=== PATIENT | male | born 1945 | race Caucasian/White ===

== ENCOUNTER → 2017-06-25 08:01 | Outpatient (CLI) | payer MEDICARE, BC, SELFPAY ==
[2017-06-25 10:56] LABS: Anion Gap 7 (5-15); BUN 9 mg/dL (7-18); BUN/Creat Ratio 9.2 RATIO (10-20); Calcium,Total 8.7 mg/dL (8.5-10.1); Chloride 109 mmol/L (98-107); Cholesterol 140 mg/dL (200); Creatinine, Serum 0.98 mg/dL (0.70-1.30); EST Glomerular Filtration Rate 80 mL/min (>60); Est Glom Filt Rate - Afr Amer 97 mL/min (>60); Glucose 83 mg/dL (74-106); High Density Lipoprotein 48 mg/dL; PSA,Total - Annual Screen 3.21 ng/mL (0.00-4.00); Potassium 4.1 mmol/L (3.5-5.1); Sodium Level 142 mmol/L (136-145); Triglycerides 79 mg/dL; Very Low Density Lipoprotein 16 mg/dL (5-40)
== END ==
PROVIDERS: Family Provider Family Medicine; PCP Family Medicine; Visit Provider Family Medicine
DX: Z00.00 Encounter for general adult medical examination without abnormal findings (principal); I10 Essential (primary) hypertension; E78.5 Hyperlipidemia, unspecified; Z12.5 Encounter for screening for malignant neoplasm of prostate
CPT/HCPCS: 36415; 80048; 80061; 84153; G0103

== ENCOUNTER → 2019-04-17 09:41 | Outpatient (CLI) | payer MEDICARE, BC, SELFPAY ==
[2019-04-17 12:54] LABS: Anion Gap 3 (5-15); BUN 16 mg/dL (7-18); BUN/Creat Ratio 14.2 RATIO (10-20); Calcium,Total 9.2 mg/dL (8.5-10.1); Chloride 109 mmol/L (98-107); Cholesterol 169 mg/dL (200); Creatinine, Serum 1.13 mg/dL (0.70-1.30); EST Glomerular Filtration Rate 67 mL/min (>60); Est Glom Filt Rate - Afr Amer 81 mL/min (>60); Glucose 97 mg/dL (74-106); High Density Lipoprotein 58 mg/dL; PSA,Total - Annual Screen 4.18 ng/mL (0.00-4.00); Potassium 4.5 mmol/L (3.5-5.1); Sodium Level 141 mmol/L (136-145); Triglycerides 118 mg/dL; Very Low Density Lipoprotein 24 mg/dL (5-40)
[2019-04-17 14:54] LABS: ALB/GLOB Ratio 1.1 RATIO (0.9-2.4); AST(SGOT) 17 U/L (15-37); Alanine Aminotransfer ALT/SGPT 28 U/L (16-61); Albumin, Serum 3.8 g/dL (3.2-5.0); Alkaline Phosphatase 58 U/L (45-117); Globulin 3.5 g/dL (2.2-4.2); Protein, Total 7.3 g/dL (6.4-8.2)
== END ==
PROVIDERS: PCP Family Medicine; Referring Provider Family Medicine; Visit Provider Family Medicine
DX: N40.0 Benign prostatic hyperplasia without lower urinary tract symptoms (principal); E78.5 Hyperlipidemia, unspecified; I10 Essential (primary) hypertension; Z12.5 Encounter for screening for malignant neoplasm of prostate
CPT/HCPCS: 36415; 80048; 80053; 80061; 84153; G0103

== ENCOUNTER → 2019-04-24 15:50 | Outpatient (CLI) | payer MEDICARE, BC, SELFPAY ==
--- NOTE | 2019-04-24 15:58 | RAD_ITS ---
STUDY: X-RAY - LEFT FOOT CLINICAL: Medial left foot pain extending into the heel for 2 months, may have overstretched foot. TECHNIQUE: 3 view(s) of the foot. COMPARISON: Radiographs of the left ankle 09/04/2016. FINDINGS: There is a small plantar calcaneal enthesophyte as on the prior study. Otherwise, unremarkable talus, calcaneus, and tarsal bones. Normal visualized subtalar, talonavicular, calcaneocuboid, tarsal and tarsometatarsal articulations. Normal metatarsi. Normal metatarsophalangeal joint of the great toe. Normal tibial and fibular sesamoid bones. There is a bipartite tibial sesamoid. Normal interphalangeal joint of the great toe. There is a small cyst in the medial distal aspect of the first proximal phalanx. Otherwise, unremarkable phalanges of the great toe. Normal second through fifth metatarsophalangeal joints. Normal interphalangeal joints and phalanges of the lesser toes. The soft tissue structures are unremarkable. RAD/Foot min 3 Views IMPRESSION: Small plantar calcaneal enthesophyte. Small cyst in the first proximal phalanx. Electronically Signed: Luis A Cho MD at 9:33 EST Tel , Service support ,
== END ==
PROVIDERS: PCP Family Medicine; Referring Provider Family Medicine; Visit Provider Family Medicine
DX: M79.672 Pain in left foot (principal)
CPT/HCPCS: 73630

== ENCOUNTER → 2019-05-30 12:05 | Outpatient (CLI) | payer MEDICARE, BC, SELFPAY ==
--- NOTE | 2019-05-30 12:08 | RAD_ITS ---
STUDY: X-RAY - UNILATERAL RIBS ( RIGHT ) WITH CHEST REASON FOR EXAM: Male, 74 years old. Fell 3 days ago, right lower anterior rib pain now TECHNIQUE - RIBS: 4 view(s) of the ribs. TECHNIQUE - CHEST: Single PA view of the chest. COMPARISON: None. FINDINGS - RIBS: Nondisplaced transverse fracture in the posterior aspect of the right seventh rib. FINDINGS - CHEST: The lungs are clear and expanded. Scattered calcified granulomas. There is no demonstrated pleural abnormality. Normal size heart. Normal mediastinum and parth. There is prominence of the pulmonary hilar arteries without peripheral pulmonary vascular congestion, suggesting pulmonary hypertension. There is atherosclerotic calcification of the aortic arch with tortuosity. There are diffuse degenerative changes of the visualized thoracic spine. Normal visualized ribs, clavicles, and shoulders. There is no demonstrated abnormality of the visualized soft tissue structures of the upper abdomen. RAD/Ribs Uni Min 3V w/PA Chest IMPRESSION: RIBS: Nondisplaced fracture in the posterior aspect of the right seventh rib. CHEST: Normal x-ray examination of the chest. Electronically Signed: Valeriy Rene, at 14:00 EDT , Service support ,
== END ==
PROVIDERS: PCP Family Medicine; Referring Provider Family Medicine; Visit Provider Family Medicine
DX: R07.81 Pleurodynia (principal)
CPT/HCPCS: 71101

== ENCOUNTER → 2019-08-02 10:44 | Outpatient (CLI) | payer MEDICARE, BC, SELFPAY ==
--- NOTE | 2019-08-02 10:46 | ECHOD_ITS ---
Reason For Study: Murmur Procedure This was a 2D Doppler, Color Flow transthoracic echocardiogram. Exam performed in department. Left Ventricle Normal LV size. Severe concentric left ventricular hypertrophy. Left ventricular systolic function is normal. The estimated ejection fraction is 65 %. No regional wall motion abnormalities noted. Right Ventricle Normal RV size. Normal systolic function. Atria The left atrium is moderately enlarged. The right atrium is moderately enlarged. Mitral Valve There is mild mitral annular calcification. Mild (1+) eccentric mitral valve insufficiency. Tricuspid Valve Normal tricuspid valve. Mild to moderate (1-2+) tricuspid valve insufficiency. Pulmonary artery systolic pressure is 52 mmHg. Moderate pulmonary hypertension. Aortic Valve Trisinus/trileaflet aortic valve. Severe focal aortic valve calcification. Peak aortic valve gradient 86 mmHg. Mean aortic valve gradient 52 mmHg. Severe aortic stenosis. Calculated aortic valve area (continuity equation) is 0.5 cm2. Trivial eccentric aortic valve insufficiency. Pulmonic Valve Normal pulmonic valve. Great Vessels Normal aortic root. The pulmonary artery is normal size. Normal inferior vena cava. Pericardium/Pleural No pericardial effusion. MMode/2D Measurements & Calculations LVIDd: 4.4 cm IVSd: 1.8 cm LVOT diam: 2.0 cm LVIDs: 3.0 cm LVPWd: 1.7 cm LVOT area: 3.0 cm2 RVDd: 4.2 cm FS: 30.9 % Ao root diam: 3.3 cm LAV(MOD-bp): 104.0 ml LA A4 area: 26.8 cm2 LA dimension: 4.4 cm LAV(MOD-bp) Indexed: 47.3 ml/m2 LAV(MOD-sp2): 106.2 ml LAV(MOD-sp4): 96.6 ml RA A4 area: 25.3 cm2 Time Measurements MV dec time: 0.37 sec Doppler Measurements & Calculations MV E max vaughn: 105.8 cm/sec Lat Peak E' Vaughn: 5.9 cm/sec Med Peak E' Vaughn: 5.6 cm/sec MV A max vaughn: 99.9 cm/sec E/E' lat: 17.8 E/E' med: 19.1 MV E/A: 1.1 MV V2 max: 147.7 cm/sec MV P1/2t max vaughn: 148.7 cm/sec Ao V2 max: 465.1 cm/sec MV max P.7 mmHg MV P1/2t: 84.4 msec Ao max P.5 mmHg MV V2 mean: 73.9 cm/sec MV dec slope: 516.1 cm/sec2 Ao V2 mean: 340.1 cm/sec MV mean P.6 mmHg Ao mean P.9 mmHg MV V2 VTI: 44.4 cm MVA(P1/2t): 2.6 cm2 Ao V2 VTI: 120.6 cm MVA(VTI): 1.3 cm2 KARINE(I,D): 0.48 cm2 KARINE(V,D): 0.51 cm2 LV V1 max: 78.5 cm/sec SV(LVOT): 58.0 ml PA V2 max: 93.1 cm/sec LV V1 max P.5 mmHg LV V1 mean P.5 mmHg LV V1 mean: 57.0 cm/sec LV V1 VTI: 19.2 cm TR max vaughn: 349.4 cm/sec TR max P.8 mmHg Interpretation Summary Normal LV size. Severe concentric left ventricular hypertrophy. Left ventricular systolic function is normal. The estimated ejection fraction is 65 %. Mean aortic valve gradient 52 mmHg. Severe aortic stenosis. Calculated aortic valve area (continuity equation) is 0.5 cm2. Moderate pulmonary hypertension. Ordering Physician: Roberto Carlos Aj Referring Physician: Roberto Carlos Aj Performed By: Warren Singh RCS
== END ==
PROVIDERS: PCP Family Medicine; Referring Provider Family Medicine; Visit Provider Family Medicine
DX: R01.1 Cardiac murmur, unspecified (principal); R06.02 Shortness of breath
CPT/HCPCS: 93306

== ENCOUNTER → 2019-08-04 06:05 | Outpatient (CLI) | payer MEDICARE, BC, SELFPAY ==
--- NOTE | 2019-08-04 16:42 | STRESSREP ---
Stress Test Report Exercise myocardial perfusion stress test. 74-year-old man with a history of chest pain. Stress protocol: Resting EKG demonstrates sinus bradycardia with a rate of 56 bpm occasional premature ventricular complexes noted. Resting blood pressure is 132/88 mmHg. The patient exercised according to regular Vu protocol for a total duration of 7 minutes. The patient completed 1 minute into stage III of the Vu protocol. The maximum heart rate attained was 123 bpm which was 84% of maximum predicted heart rate the maximum workload was 8.5 metabolic equivalents. Patient maintained sinus rhythm with frequent premature ventricular complexes noted. Episodes of bigeminy was noted as well as ventricular couplets activity. There was one episode of triplet noted. The above was noted to be asymptomatic. Patient did experience some shortness of breath. At rest no EKG changes were noted suggest ischemia peak exercise 1.[address] depression was noted in lead II and V6 and 1.[address] depression noted in lead III and aVF. The resting blood pressure is 132/88 with a peak blood pressure 162/96. Myocardial perfusion protocol. 11.0 mCi of technetium 99m sestamibi was injected at rest. The patient exercised according to regular Vu protocol. At peak exercise 36.0 mCi of technetium 99m sestamibi was injected stress images were obtained stress and rest images were reconstructed and compared in the short axis vertical and horizontal long axis. Gated images were also obtained Perfusion SPECT analysis: Review of the stress images demonstrate a small defect noted in the apex and inferoapical wall. The anterior wall lateral wall and septal wall appears to be well perfused. The resting images demonstrate improvement in the apical region suggestive of apical and inferoapical ischemia. No previous infarct is noted. Gated SPECT analysis: The gated ejection fraction is noted to be 46%. Conclusion: Abnormal exercise myocardial perfusion stress test with evidence of apical ischemia noted. Frequent premature ventricular complexes noted as well as ventricular bigeminy. Mild reduction in low ventricular systolic function.
== END ==
PROVIDERS: PCP Family Medicine; Referring Provider Family Medicine; Visit Provider Family Medicine
DX: R06.02 Shortness of breath (principal)
CPT/HCPCS: 78452; 93017; A9500

== ENCOUNTER 2019-08-28 07:41 | Day surgery (SDC) | payer MEDICARE, BC, SELFPAY ==
--- NOTE | 2019-08-22 03:06 | HP_ITS ---
HPI HPI History of Present Illness Surgical H&P: Yes Details: Mr. 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 Patient was found to have a incidental heart murmur by Dr. Herron who then ordered a series of tests including an echocardiogram and a stress test. Patient underwent a 2D echo with Doppler on 08/02/2019 which showed the following results: Normal LV size. Severe concentric left ventricular hypertrophy. Left ventricular systolic function is normal. The estimated ejection fraction is 65 %. Peak gradient of 86 mmHg. Mean aortic valve gradient 52 mmHg. Severe aortic stenosis. Calculated aortic valve area (continuity equation) is 0.5 cm2. Moderate pulmonary hypertension. In addition to this he underwent a walking nuclear stress test on 08/04/2019 at which time he walked about 7 minutes, had abnormal EKG changes with exercise, and demonstrated apical ischemia with frequent PVCs. He is here for further evaluation for his aortic stenosis and dyspnea on exertion. On further history, patient states that he is never been told he had a murmur in the past, but has had progressively worsening dyspnea on exertion over the last year. He occasionally gets lightheaded with getting up too quickly, but has had no presyncope or syncopal episodes. He denies any exertional anginal symptoms. In our office today's blood pressure is 160/90, and pulse is 60 and regular. Physical exam demonstrates clear lungs bilaterally, parvus et tardus bilateral carotids with radiation of his aortic murmur to both carotids, regular rate and rhythm with a 3/6 systolic ejection murmur best heard at the upper right sternal border, no diastolic murmurs noted. He has no edema. EKG dated 08/04/2019 shows sinus bradycardia at a rate of 56, left atrial large man, PVC, good R wave progression across the precordium. His lipids dated 04/17/2019 show an LDL of 87 and HDL of 58. 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 Required: No Is patient in pain?: No Allergies No Known Allergies Allergy (Verified 08/15/19 17:36) Medications atorvastatin 10 mg tablet 10 mg PO QHS 08/15/19 [History Confirmed 08/15/19] metoprolol succinate 100 mg tablet,extended release 24 hr 100 mg PO DAILY 08/15/19 [History Confirmed 08/15/19] aspirin 81 mg tablet,delayed release 81 mg PO DAILY #30 tab 08/22/19 [Rx Confirmed 08/22/19] furosemide 20 mg tablet 20 mg PO DAILY #30 tab 08/22/19 [Rx Confirmed 08/22/19] omeprazole 20 mg capsule,delayed release 20 mg PO BID cap 08/22/19 [History Confirmed 08/22/19] PFSH Medical History Abnormal nuclear stress test (Acute) Severe aortic stenosis (Chronic) Nonrheumatic tricuspid (valve) insufficiency (Chronic) Nonrheumatic mitral (valve) insufficiency (Chronic) Secondary pulmonary hypertension (Chronic) Severe left ventricular hypertrophy (Chronic) Dyspnea on exertion (Acute) Essential hypertension (Chronic) Hyperlipidemia (Chronic) Greene's esophagus with esophagitis (Chronic) GERD (gastroesophageal reflux disease) (Chronic) Hiatal hernia (Chronic) BPH (benign prostatic hyperplasia) (Chronic) Family History Other CAD (coronary artery disease) Diabetes Hypertension Social History (Updated 08/22/19 @ 15:[address] David Wyatt MD) Smoking Status: Former smoker ROS Const Const: Negative for fatigue, weakness, body ache, fever(s), headache(s), chills, frequent falls, night sweats, daytime sleepiness, difficulty sleeping, excessive sweating, weight gain, weight loss, increased appetite, poor appetite, anorexia or other Eyes Eyes: Negative for blind spots, loss of peripheral vision, transient loss of vision, blurry vision, change in vision, double vision, floaters, tunnel vision or other ENT ENT: Negative for headache(s), dizziness, hearing loss, tinnitus, Nosebleed/epistaxis, balance problems, post nasal drip, lip swelling, tongue swelling, bleeding gums, hoarseness, neck pain, dry mouth or other Cardio Chest Pain: No Resp Respiratory: Negative for SOB with activity, SOB at rest, SOB orthopnea\SOB lying down, Coughing up blood/hemoptysis, chest congestion, pain on inspiration, snoring, stridor, wheezing, crackles, paroxysmal nocturnal dyspnea or other GI GI: Negative nausea, vomiting, heartburn, constipation, belching, bloating, cramping, vomiting blood/hematemesis, bright, red blood in stools, black,tarry stools, loose stools, Difficulty Swallowing or other : Negative for hematuria, frequent nighttime urination/ nocturia, erectile dysfunction or abnormal vaginal bleeding Musc Musc: Negative for muscle aches/ myalgia, muscle weakness, joint pain or balance problems Skin Skin: Negative redness, non-healing lesions, rash, unusual bruising, skin ulcer, wounds, jaundice or other Neuro Neuro: Negative for dizziness, lightheadedness, near syncope, syncope, orthostatic symptoms, frequent falls, headache(s), weakness, confusion, memory loss, restless legs, blurry vision, double vision, vertigo, seizures, lack of coordination or other Bryce Hematologic/Lymphatic: Negative for easy bleeding, easy bruising, enlarged lymph nodes or other Endo Endo: Negative for fatigue, cold intolerance, heat intolerance, excessive sweating, flushing, increased thirst/drinking, increased hunger, hair loss, hair growth or other Psych Psych: Negative for anxiety, depression, thoughts of harming anyone, thoughts of harming yourself, visual hallucinations, panic attacks or audible hallucinations Allergy Allergy/Immunology: Negative for throat swelling, Negative for tongue swelling, Negative for hives, Negative for rash, Negative for lip swelling Cardiology Exam Const Appearance: cooperative, healthy appearing and no acute distress Nutritional Appearance: well nourished Orientation: alert, oriented x3 and oriented to person Head Head: normal to inspection, normocephalic and atraumatic Nose: external nose normal Face and Sinus: face symmetric Mouth: oral mucosae normal Eyes General: appearance normal, both eyes and all related structures Eyelids: eyelids normal Conjunctivae: conjunctivae normal Pupils: PERRL and normal by confrontation EOM: EOM intact bilaterally Neck Neck: normal visual inspection and full ROM Carotids: normal carotid upstroke Chest Chest inspection: normal inspection of the chest Auscultation: Bilateral: Clear to Auscultation Cardio Palpation: normal PMI Rate: regular rate Rhythm: regular rhythm Heart sounds: S1 normal and S2 normal GI GI: normal to inspection, no hepatosplenomegaly and bowel sounds present Neuro General: alert, awake, oriented x3, CN's II-XI intact bilaterally and moves all extremities Skin Skin: no rashes or lesions noted Extremities Pulses: Normal: Right Femoral Pulse, Left Femoral Pulse, Right Dorsalis Pedis Pulse, Left Dorsalis Pedis Pulse, Right Posterior Tibial Pulse, Left Posterior Tibial Pulse, Right Radial Pulse, Left Radial Pulse Lower Extremity Edema: None: Bilateral Psych Psychological: normal affect Assessment & Plan 1. Severe aortic stenosis I35.0 Per echo 08/02/2019: Peak gradient 86 mmhg, mean gradient 52 mmhg, calculated valve area 0.5 cm2. Severe aortic valve calcification. Plan 1. Severe aortic stenosis: Patient was found to have a systolic murmur and a cardiac work-up demonstrated severe aortic stenosis with a peak/mean gradient of 86/52 mmHg given an estimated aortic valve area of 0.5 cm?. In addition he underwent a walking stress test stopped due to significant dyspnea, had abnormal EKG changes, no evidence of apical ischemia. I recommended the patient undergo a left and right heart catheterization to evaluate his pulmonary pressures, aortic valve gradient, and coronary arteries. Depending upon its findings will determine whether the patient requires open aortic valve replacement with bypass surgery or TAVR. Should the patient require TAVR, I recommend he go to the [facility]. The meantime he will continue his metoprolol succinate on a milligrams daily, we will add Lasix 20 g p.o. daily for his hypertension and diastolic hypertension and to unload his lungs. Continue baby aspirin. Should the patient require surgery he will require carotid ultrasound and pulmonary function test. The risk/benefits of the cardiac catheterization procedure were thoroughly explained the patient including specific attention to lack of onsite surgical backup, the patient agrees to proceed. Orders Orders: Left & Right Heart Cath 08/28/19 Basic Metabolic Profile (BMP) Today Partial Thromboplast Time Today Prothrombin Time w/INR Today CBC-Complete Blood Cnt No Diff Today Chest PA and Lateral Today 2. Secondary pulmonary hypertension RVSP 52 mmhg per echo 08/02/2019 with , mitral and tricuspid insufficiency. Plan 2. Pulmonary hyperpretension: At this point the patient most likely has secondary pulmonary pretension as a result of his severe aortic stenosis. Again we will start Lasix 20 mg p.o. daily. He will continue his baby aspirin and metoprolol. He will require pulmonary function tests prior to his surgery if indicated. 3. Hyperlipidemia E78.5 Plan 3. Hyperlipidemia: We are awaiting a repeat lipid profile. Continue Lipitor. 4. Return office in 6 months. This note was generated using a voice recognition system and there may be incorrect words, spelling or punctuation that were not noted when reviewing the office note prior to saving. Plan Detail Other Orders Orders: Left & Right Heart Cath 08/28/19 I10, I34.0, I36.1, I51.7, R06.00, R94.39 Basic Metabolic Profile (BMP) Today R06.00, R94.39 Partial Thromboplast Time Today R06.00, R06.02, R94.39 Prothrombin Time w/INR Today R06.00, R94.39 CBC-Complete Blood Cnt No Diff Today R06.00, R94.39 Chest PA and Lateral Today R06.00, R94.39 Other Medications New: aspirin (Adult Aspirin Regimen) 81 mg PO DAILY 30 tabs 11RF furosemide 20 mg PO DAILY 30 tabs 11RF aspirin (Adult Aspirin Regimen) 81 mg PO DAILY 30 tabs 11RF Follow Up +6M (Edmundo) Coding Level of Care Code Off vis,new,level 4 Diagnoses Severe aortic stenosis I35.0 Secondary pulmonary hypertension Hyperlipidemia E78.5 Coding Level of Care Code Off vis,new,level 4 Diagnoses Severe aortic stenosis I35.0 Secondary pulmonary hypertension Hyperlipidemia E78.5 Supplemental Info Supplemental Information Labs LDL Cholesterol 87 mg/dL (0-130) 04/17/19 HDL Cholesterol 58 mg/dL (40-) 04/17/19 Triglycerides 118 mg/dL (-199) 04/17/19 VLDL Cholesterol 24 mg/dL (5-40) 04/17/19 Diagnostics Echocardiogram 08/02/19 Stress Test 08/04/19 08/22/19 [id number] <Electronically signed by David Wyatt MD> Date _ David Wyatt MD
[2019-08-22 14:34] VITALS: BMI 29.1
--- NOTE | 2019-08-22 15:25 | RAD_ITS ---
HISTORY: patient having heart cath in near future ADDITIONAL HISTORY: None provided. COMPARISON: 05/30/2019 TECHNIQUE: Frontal and lateral chest radiographs. Number of images including paperwork: 2 FINDINGS: LUNGS AND PLEURA: No consolidation, mass or pleural effusion. CARDIAC SILHOUETTE: Stable. MEDIASTINUM AND JODI: Stable. UPPER ABDOMEN: Unremarkable. SKELETON AND SOFT TISSUES: No acute findings. Degenerative changes. Old right rib fractures. OTHER DEVICES AND HARDWARE: None. RAD/Chest PA and Lateral IMPRESSION: No acute cardiopulmonary abnormality. at 0642 Reported and signed by: Karina Álvarez MD Electronically Signed: Karina Álvarez MD at 6:42 EDT Tel , Service support ,
[2019-08-22 16:18] LABS: Hematocrit 43.5 % (40-54); Hemoglobin 13.9 g/dL (13.0-16.5); Mean Corpuscular Hgb 29.9 pg (27.0-32.0); Mean Corpuscular Volume 93.5 fL (80-94); Mean Platelet Vol. 10.9 fl (6.2-12.0); Platelet Count 172 K/mm3 (150-450); RBC Distribution Width CV 12.9 % (11.6-14.6); RBC Distribution Width SD 44.2 fl (35.1-43.9); Red Blood Count 4.65 M/mm3 (4.6-6.2); White Blood Count 7.2 K/mm3 (4.4-11.0)
[2019-08-22 16:41] LABS: Anion Gap 7 (5-15); BUN 19 mg/dL (7-18); Calcium,Total 8.8 mg/dL (8.5-10.1); Chloride 105 mmol/L (98-107); Creatinine, Serum 0.86 mg/dL (0.70-1.30); EST Glomerular Filtration Rate 92 mL/min (>60); Est Glom Filt Rate - Afr Amer 111 mL/min (>60); Glucose 97 mg/dL (74-106); Potassium 4.2 mmol/L (3.5-5.1); Sodium Level 139 mmol/L (136-145)
[2019-08-22 16:50] LABS: International Normalized Ratio 1.1; Prothrombin Time (Protime)PT. 13.3 SECONDS (11.7-14.9)
[2019-08-22 16:51] LABS: Partial Thromboplast Time 26.9 Seconds (24.1-36.2)
[2019-08-25 11:50] VITALS: BMI 29.1
--- NOTE | 2019-08-28 10:32 | PCM.HP.BLA ---
Problem List (1) Abnormal nuclear stress test Status: Acute Comment: 08/04/2019 (2) Dyspnea on exertion Status: Acute (3) Secondary pulmonary hypertension Status: Chronic Comment: RVSP 52 mmhg per echo 08/02/2019 with , mitral and tricuspid insufficiency. (4) Severe aortic stenosis Status: Chronic Comment: Per echo 08/02/2019: Peak gradient 86 mmhg, mean gradient 52 mmhg, calculated valve area 0.5 cm2. Severe aortic valve calcification. (5) Severe left ventricular hypertrophy Status: Chronic Comment: Per echo 08/02/2019 History and Physical Date of Admission: 08/28/19 [facility] Medical Records Department [address] [place] [address] History and Physical 08/22/19 0306 MR#: [id number] Acct: [id number] Name: Nicolas SHABAZZ III Rep #: [id number] : 1945 74 From: David Wyatt MD PCP: Dr. Roberto Carlos Herron MD Status: PRE [facility] Location: [facility] HPI HPI History of Present Illness Surgical H&P: Yes Details: Mr. 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 Patient was found to have a incidental heart murmur by Dr. Herron who then ordered a series of tests including an echocardiogram and a stress test. Patient underwent a 2D echo with Doppler on 08/02/2019 which showed the following results: Normal LV size. Severe concentric left ventricular hypertrophy. Left ventricular systolic function is normal. The estimated ejection fraction is 65 %. Peak gradient of 86 mmHg. Mean aortic valve gradient 52 mmHg. Severe aortic stenosis. Calculated aortic valve area (continuity equation) is 0.5 cm2. Moderate pulmonary hypertension. In addition to this he underwent a walking nuclear stress test on 08/04/2019 at which time he walked about 7 minutes, had abnormal EKG changes with exercise, and demonstrated apical ischemia with frequent PVCs. He is here for further evaluation for his aortic stenosis and dyspnea on exertion. On further history, patient states that he is never been told he had a murmur in the past, but has had progressively worsening dyspnea on exertion over the last year. He occasionally gets lightheaded with getting up too quickly, but has had no presyncope or syncopal episodes. He denies any exertional anginal symptoms. In our office today's blood pressure is 160/90, and pulse is 60 and regular. Physical exam demonstrates clear lungs bilaterally, parvus et tardus bilateral carotids with radiation of his aortic murmur to both carotids, regular rate and rhythm with a 3/6 systolic ejection murmur best heard at the upper right sternal border, no diastolic murmurs noted. He has no edema. EKG dated 08/04/2019 shows sinus bradycardia at a rate of 56, left atrial large man, PVC, good R wave progression across the precordium. His lipids dated 04/17/2019 show an LDL of 87 and HDL of 58. Intake Vital Signs 08/22/19 Height 6 ft 08/22/19 Weight: 215 lb 08/22/19 BMI 29.1 08/22/19 BP 160/90 H 08/22/19 Blood Pressure Location Lt brachial 08/22/19 Position Sitting 08/22/19 Respiration 20 H 08/22/19 Pulse 60 08/22/19 Pulse Source Auscultation Intake Visit Reasons: AORTIC STENOSIS (HERRON) [employer] Required: No Is patient in pain?: No Allergies No Known Allergies Allergy (Verified 08/15/19 17:36) Medications atorvastatin 10 mg tablet 10 mg PO QHS 08/15/19 [History Confirmed 08/15/19] metoprolol succinate 100 mg tablet,extended release 24 hr 100 mg PO DAILY 08/15/19 [History Confirmed 08/15/19] aspirin 81 mg tablet,delayed release 81 mg PO DAILY #30 tab 08/22/19 [Rx Confirmed 08/22/19] furosemide 20 mg tablet 20 mg PO DAILY #30 tab 08/22/19 [Rx Confirmed 08/22/19] omeprazole 20 mg capsule,delayed release 20 mg PO BID cap 08/22/19 [History Confirmed 08/22/19] [facility] Medical History Abnormal nuclear stress test (Acute) Severe aortic stenosis (Chronic) Nonrheumatic tricuspid (valve) insufficiency (Chronic) Nonrheumatic mitral (valve) insufficiency (Chronic) Secondary pulmonary hypertension (Chronic) Severe left ventricular hypertrophy (Chronic) Dyspnea on exertion (Acute) Essential hypertension (Chronic) Hyperlipidemia (Chronic) Greene's esophagus with esophagitis (Chronic) GERD (gastroesophageal reflux disease) (Chronic) Hiatal hernia (Chronic) BPH (benign prostatic hyperplasia) (Chronic) Family History Other CAD (coronary artery disease) Diabetes Hypertension Social History (Updated 08/22/19 @ 15:[address] David Wyatt MD) Smoking Status: Former smoker ROS Const Const: Negative for fatigue, weakness, body ache, fever(s), headache(s), chills, frequent falls, night sweats, daytime sleepiness, difficulty sleeping, excessive sweating, weight gain, weight loss, increased appetite, poor appetite, anorexia or other Eyes Eyes: Negative for blind spots, loss of peripheral vision, transient loss of vision, blurry vision, change in vision, double vision, floaters, tunnel vision or other ENT ENT: Negative for headache(s), dizziness, hearing loss, tinnitus, Nosebleed/epistaxis, balance problems, post nasal drip, lip swelling, tongue swelling, bleeding gums, hoarseness, neck pain, dry mouth or other Cardio Chest Pain: No Resp Respiratory: Negative for SOB with activity, SOB at rest, SOB orthopnea\SOB lying down, Coughing up blood/hemoptysis, chest congestion, pain on inspiration, snoring, stridor, wheezing, crackles, paroxysmal nocturnal dyspnea or other GI GI: Negative nausea, vomiting, heartburn, constipation, belching, bloating, cramping, vomiting blood/hematemesis, bright, red blood in stools, black,tarry stools, loose stools, Difficulty Swallowing or other : Negative for hematuria, frequent nighttime urination/ nocturia, erectile dysfunction or abnormal vaginal bleeding Musc Musc: Negative for muscle aches/ myalgia, muscle weakness, joint pain or balance problems Skin Skin: Negative redness, non-healing lesions, rash, unusual bruising, skin ulcer, wounds, jaundice or other Neuro Neuro: Negative for dizziness, lightheadedness, near syncope, syncope, orthostatic symptoms, frequent falls, headache(s), weakness, confusion, memory loss, restless legs, blurry vision, double vision, vertigo, seizures, lack of coordination or other Bryce Hematologic/Lymphatic: Negative for easy bleeding, easy bruising, enlarged lymph nodes or other Endo Endo: Negative for fatigue, cold intolerance, heat intolerance, excessive sweating, flushing, increased thirst/drinking, increased hunger, hair loss, hair growth or other Psych Psych: Negative for anxiety, depression, thoughts of harming anyone, thoughts of harming yourself, visual hallucinations, panic attacks or audible hallucinations Allergy Allergy/Immunology: Negative for throat swelling, Negative for tongue swelling, Negative for hives, Negative for rash, Negative for lip swelling Cardiology Exam Const Appearance: cooperative, healthy appearing and no acute distress Nutritional Appearance: well nourished Orientation: alert, oriented x3 and oriented to person Head Head: normal to inspection, normocephalic and atraumatic Nose: external nose normal Face and Sinus: face symmetric Mouth: oral mucosae normal Eyes General: appearance normal, both eyes and all related structures Eyelids: eyelids normal Conjunctivae: conjunctivae normal Pupils: PERRL and normal by confrontation EOM: EOM intact bilaterally Neck Neck: normal visual inspection and full ROM Carotids: normal carotid upstroke Chest Chest inspection: normal inspection of the chest Auscultation: Bilateral: Clear to Auscultation Cardio Palpation: normal PMI Rate: regular rate Rhythm: regular rhythm Heart sounds: S1 normal and S2 normal GI GI: normal to inspection, no hepatosplenomegaly and bowel sounds present Neuro General: alert, awake, oriented x3, CN's II-XI intact bilaterally and moves all extremities Skin Skin: no rashes or lesions noted Extremities Pulses: Normal: Right Femoral Pulse, Left Femoral Pulse, Right Dorsalis Pedis Pulse, Left Dorsalis Pedis Pulse, Right Posterior Tibial Pulse, Left Posterior Tibial Pulse, Right Radial Pulse, Left Radial Pulse Lower Extremity Edema: None: Bilateral Psych Psychological: normal affect Assessment & Plan 1. Severe aortic stenosis I35.0 Per echo 08/02/2019: Peak gradient 86 mmhg, mean gradient 52 mmhg, calculated valve area 0.5 cm2. Severe aortic valve calcification. Plan 1. Severe aortic stenosis: Patient was found to have a systolic murmur and a cardiac work-up demonstrated severe aortic stenosis with a peak/mean gradient of 86/52 mmHg given an estimated aortic valve area of 0.5 cm?. In addition he underwent a walking stress test stopped due to significant dyspnea, had abnormal EKG changes, no evidence of apical ischemia. I recommended the patient undergo a left and right heart catheterization to evaluate his pulmonary pressures, aortic valve gradient, and coronary arteries. Depending upon its findings will determine whether the patient requires open aortic valve replacement with bypass surgery or TAVR. Should the patient require TAVR, I recommend he go to the [facility]. The meantime he will continue his metoprolol succinate on a milligrams daily, we will add Lasix 20 g p.o. daily for his hypertension and diastolic hypertension and to unload his lungs. Continue baby aspirin. Should the patient require surgery he will require carotid ultrasound and pulmonary function test. The risk/benefits of the cardiac catheterization procedure were thoroughly explained the patient including specific attention to lack of onsite surgical backup, the patient agrees to proceed. Orders Orders: Left & Right Heart Cath 08/28/19 Basic Metabolic Profile (BMP) Today Partial Thromboplast Time Today Prothrombin Time w/INR Today CBC-Complete Blood Cnt No Diff Today Chest PA and Lateral Today 2. Secondary pulmonary hypertension RVSP 52 mmhg per echo 08/02/2019 with , mitral and tricuspid insufficiency. Plan 2. Pulmonary hyperpretension: At this point the patient most likely has secondary pulmonary pretension as a result of his severe aortic stenosis. Again we will start Lasix 20 mg p.o. daily. He will continue his baby aspirin and metoprolol. He will require pulmonary function tests prior to his surgery if indicated. 3. Hyperlipidemia E78.5 Plan 3. Hyperlipidemia: We are awaiting a repeat lipid profile. Continue Lipitor. 4. Return office in 6 months. This note was generated using a voice recognition system and there may be incorrect words, spelling or punctuation that were not noted when reviewing the office note prior to saving. Plan Detail Other Orders Orders: Left & Right Heart Cath 08/28/19 I10, I34.0, I36.1, I51.7, R06.00, R94.39 Basic Metabolic Profile (BMP) Today R06.00, R94.39 Partial Thromboplast Time Today R06.00, R06.02, R94.39 Prothrombin Time w/INR Today R06.00, R94.39 CBC-Complete Blood Cnt No Diff Today R06.00, R94.39 Chest PA and Lateral Today R06.00, R94.39 Other Medications New: aspirin (Adult Aspirin Regimen) 81 mg PO DAILY 30 tabs 11RF furosemide 20 mg PO DAILY 30 tabs 11RF aspirin (Adult Aspirin Regimen) 81 mg PO DAILY 30 tabs 11RF Follow Up +6M (Edmundo) Coding Level of Care Code Off vis,new,level 4 Diagnoses Severe aortic stenosis I35.0 Secondary pulmonary hypertension Hyperlipidemia E78.5 Coding Level of Care Code Off vis,new,level 4 Diagnoses Severe aortic stenosis I35.0 Secondary pulmonary hypertension Hyperlipidemia E78.5 Supplemental Info Supplemental Information Labs LDL Cholesterol 87 mg/dL (0-130) 04/17/19 HDL Cholesterol 58 mg/dL (40-) 04/17/19 Triglycerides 118 mg/dL (-199) 04/17/19 VLDL Cholesterol 24 mg/dL (5-40) 04/17/19 Diagnostics Echocardiogram 08/02/19 Stress Test 08/04/19 08/22/19 1506 <Electronically signed by David Wyatt MD> Date David Wyatt MD 08/23/19 1333 <Electronically signed by David Wyatt MD> Date: Time: David Wyatt MD CC: Dr. David Wyatt MD; Dr. Roberto Carlos Herron MD ~ Date Dictated: 08/22/19 0306 Date Transcribed: 08/23/19 1126 Repair Department Manager: NR Signed Patient seen and examined on day of procedure, the risk/benefits of the procedure were thoroughly explained the patient including specific attention to lack of onsite surgical backup, and the patient is agreed to proceed. COVID-19 questions addressed and answered. Left heart cath and right heart catheterization to follow. Procedure Criteria COVID Risk Discussion: COVID risk assessment completed.
--- NOTE | 2019-08-28 11:10 | CL.D_ITS ---
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 Aortic Root Angiographically Normal Aortic Valve Stenosis- Severe RECOMMENDATIONS Refer to [facility] per pt's request for AVR +/- CABG to LCX and LAD. Manual sheath removal. DESCRIPTION OF PROCEDURE The patient arrived to the procedure lab. The risks and benefits of the procedure as well as a full d escription of our services here and current unavailability of surgical backup were fully explained to the patient and/or their significant other prior to the catheterization. The Timeout was completed, verifying the correct patient and procedure. The patient's procedural site was prepped and draped in the usual fashion. Local anesthetic was given subcutaneously to right groin region with Lidocaine 2%. Using a modified Seldinger technique, arterial access was obtained via the right femoral artery, a 4 Fr sheath was inserted Venous access was obtained via the right femoral vein, a 7Fr sheath was insert ed. A 7Fr thermal dilution catheter was inserted and right heart pressures were recorded, it was then advanced to PA position for cardiac outputs. Thermal dilution cardiac outputs were then recorded. O2 saturations were then obtained. The Thermal dilution catheter was then removed. Left Coronary Artery selective angiography was performed in multiple views using a 4 Fr. JL5 catheter. Rig ht Coronary Artery selective angiography was then performed in multiple views using a 4 Fr. 3DRC cath eter.The arterial sheath was pulled and manual compression applied until hemostasis is achieved. CORONARY ANGIOGRAPHY DOMINANCE: Right Dominant LEFT HEART ASSESSMENT Left Ventricular Ejection Fraction: Not assessed LV wall motion not assessed RIGHT HEART ASSESSMENT Thermal CO: 6.51 Thermal CI: 2.96 Krish CO: 5.53 Krish CI: 2.51 PW: 8 PA: 28/8 13 RV: 35/-1 6 RA: 4/2 0 PVR: 72 Right Heart pressures - normal LEFT MAIN: Angiographically normal LEFT ANTERIOR DESCENDING ARTERY: PROX LAD: Mild calcification MID LAD: Mild luminal irregularities less than 30% CIRCUMFLEX ARTERY: PROX CIRC: 75 % Stenosis RAMUS: Mild luminal irregularities less than 30% RIGHT CORONARY ARTERY: Angiographically normal VALVE FINDINGS: Aortic Valve Calcification - severe Aortic Valve Stenosis - severe AORTIC ROOT: Angiographically normal COMPLICATIONS No Complications PROCEDURE MEDICATIONS SUMMARY OF HEMODYNAMIC DATA Time AIR REST ECG 08:02:44 RA 4/2 (0) 10:41:09 RV 35/-1, 6 10:41:24 PW (8) PV 10:42:09 PA 28/8 (13) PA 10:42:24 AO 163/80 (111) SA 10:52:18 Type SV CO (l/m) CI (l/m/ HR Time AIR REST Thermal 112.20 6.51 2.96 58 08:02:44 Krish 95.30 5.53 2.51 58 08:02:44 Label % O2 Pres/Loc Time AIR REST AO 96 PV 10:59:16 PA 68 PA 10:59:22 Signed By David Wyatt MD On 08/28/2019 11:09:34 David Wyatt MD
[2019-08-28 14:25] LABS: VBG BASE EXCESS -1 mmol/L (-1.0-3.5); VBG Bicarbonate 24 mmol/L (22-26); VBG Oxygen Content 25 mmol/L (23-33); VBG PO2 36 mmHg (25-40); VBG SO2 68 % (50-70); VBG pCO2 39.5 mmHg (41-51); VBG pH 7.39 (7.32-7.42)
[2019-08-28 14:25] LABS: VBG BASE EXCESS -1 mmol/L (-1.0-3.5); VBG Bicarbonate 24 mmol/L (22-26); VBG Oxygen Content 25 mmol/L (23-33); VBG PO2 41 mmHg (25-40); VBG SO2 75 % (50-70); VBG pCO2 39.2 mmHg (41-51)
[2019-08-28 14:25] LABS: Base Excess -1 mmol/L (-2 to +2); Bicarbonate 23.5 mmol/L (22-26); PO2 82 mmHG (75-100); SO2 96 % (95-99); Total Carbon Dioxide 25 mmol/L; pH 7.41 (7.35-7.45)
== END 2019-08-28 15:35 | disposition home or self-care (01) ==
LOC: CLSP 07:42
PROVIDERS: PCP Family Medicine; Referring Provider Internal Medicine Cardiovascular Disease; Visit Provider Internal Medicine Cardiovascular Disease
DX: I35.0 Nonrheumatic aortic (valve) stenosis (principal); K21.9 Gastro-esophageal reflux disease without esophagitis; K22.70 Barrett's esophagus without dysplasia; I10 Essential (primary) hypertension; E78.5 Hyperlipidemia, unspecified; Z87.891 Personal history of nicotine dependence; Z79.899 Other long term (current) drug therapy; Z79.82 Long term (current) use of aspirin; R06.09 Other forms of dyspnea; N40.0 Benign prostatic hyperplasia without lower urinary tract symptoms; K44.9 Diaphragmatic hernia without obstruction or gangrene; I27.29 Other secondary pulmonary hypertension; R94.31 Abnormal electrocardiogram [ECG] [EKG]; R94.39 Abnormal result of other cardiovascular function study
CPT/HCPCS: 36415; 71046; 80048; 85027; 85610; 85730; 93456; 93567; J7040; Q9967; C1751; C1769; C1894

== ENCOUNTER → 2019-10-09 08:18 | Outpatient (CLI) | payer MEDICARE, BC, SELFPAY ==
[2019-08-25 11:50] VITALS: BMI 29.1
[2019-10-09 12:50] LABS: Prothrombin Time (Protime)PT. 21.8 SECONDS (11.7-14.9)
[2019-10-09 12:52] LABS: Absolute Lymphocyte Count 0.94 X10^3/uL (0.83-4.51); Absolute Neutrophil Count 5.5 X10^3/uL (2.0-7.7); Basophil# 0.05 X10^3/uL; Basophil% 0.7 % (0-1); Eosinophil# 0.29 X10^3/uL; Eosinophils% 3.9 % (0-5); Hematocrit 32.9 % (40-54); Hemoglobin 10.4 g/dL (13.0-16.5); Lymphocyte # 0.94 X10^3/ul (4.0); Lymphocyte % 12.5 % (19-41); Mean Corp Hgb Conc 31.6 g/dL (32-36); Mean Corpuscular Hgb 29.5 pg (27.0-32.0); Mean Corpuscular Volume 93.5 fL (80-94); Mean Platelet Vol. 10.1 fl (6.2-12.0); Monocyte# 0.71 X10^3/uL; Monocyte% 9.5 % (0-10); NRBC Flagged by Analyzer 0 % (0-5); Neutrophil # 5.45 X10^3/uL (2.7-7.7); Neutrophil % 72.6 % (47-70); Platelet Count 416 K/mm3 (150-450); RBC Distribution Width SD 44.2 fl (35.1-43.9); Red Blood Count 3.52 M/mm3 (4.6-6.2); White Blood Count 7.5 K/mm3 (4.4-11.0)
[2019-10-09 12:54] LABS: Anion Gap 4 (5-15); BUN 16 mg/dL (7-18); BUN/Creat Ratio 18.1 RATIO (10-20); Calcium,Total 8.5 mg/dL (8.5-10.1); Chloride 108 mmol/L (98-107); Creatinine, Serum 0.88 mg/dL (0.70-1.30); EST Glomerular Filtration Rate 89 mL/min (>60); Est Glom Filt Rate - Afr Amer 108 mL/min (>60); Glucose 97 mg/dL (74-106); Magnesium 2.4 mg/dL (1.6-2.6); Potassium 3.8 mmol/L (3.5-5.1); Sodium Level 138 mmol/L (136-145)
== END ==
PROVIDERS: Family Medicine; PCP Family Medicine; Visit Provider Family Medicine
DX: E87.8 Other disorders of electrolyte and fluid balance, not elsewhere classified (principal); Z51.81 Encounter for therapeutic drug level monitoring
CPT/HCPCS: 36415; 80048; 83735; 85025; 85610

== ENCOUNTER → 2019-11-16 10:37 | Outpatient (CLI) | payer MEDICARE, BC, SELFPAY ==
[2019-11-16 09:28] VITALS: BMI 27.5
--- NOTE | 2019-11-16 10:39 | RAD_ITS ---
STUDY: X-RAY CHEST REASON FOR EXAM: Male, 74 years old. open heart surgery September 27, follow up -- some chest pain/discomfort TECHNIQUE: Frontal and lateral views COMPARISON: 08/22/2019 FINDINGS: Sternotomy wires and noted over the mediastinum since the previous study. The lungs are clear and expanded. There is no demonstrated pleural abnormality. Normal size heart. A prosthetic valve is noted. Normal mediastinum and parth. Normal visualized pulmonary arteries. Normal visualized aortic arch and descending thoracic aorta. Degenerative changes of the thoracic spine. Old right rib fractures. There is no demonstrated abnormality of the visualized soft tissue structures of the upper abdomen. RAD/Chest PA and Lateral IMPRESSION: No acute pulmonary pathology of the chest. Electronically Signed: Clement Cook DO at 23:43 EDT Tel [phone], Service support ,
[2019-11-16 11:23] LABS: Absolute Lymphocyte Count 1.29 X10^3/uL (0.83-4.51); Absolute Neutrophil Count 5.4 X10^3/uL (2.0-7.7); Basophil# 0.05 X10^3/uL; Basophil% 0.7 % (0-1); Eosinophils% 2.6 % (0-5); Hematocrit 37.3 % (40-54); Hemoglobin 11.5 g/dL (13.0-16.5); Lymphocyte # 1.29 X10^3/ul (4.0); Lymphocyte % 16.8 % (19-41); Mean Corp Hgb Conc 30.8 g/dL (32-36); Mean Corpuscular Hgb 26.8 pg (27.0-32.0); Mean Corpuscular Volume 86.9 fL (80-94); Mean Platelet Vol. 10.6 fl (6.2-12.0); Monocyte# 0.69 X10^3/uL; NRBC Flagged by Analyzer 0 % (0-5); Neutrophil # 5.42 X10^3/uL (2.7-7.7); Neutrophil % 70.6 % (47-70); Platelet Count 278 K/mm3 (150-450); RBC Distribution Width CV 13.2 % (11.6-14.6); RBC Distribution Width SD 42.3 fl (35.1-43.9); Red Blood Count 4.29 M/mm3 (4.6-6.2); White Blood Count 7.7 K/mm3 (4.4-11.0)
[2019-11-16 11:57] LABS: AST(SGOT) 20 U/L (15-37); Alanine Aminotransfer ALT/SGPT 37 U/L (16-61); Albumin, Serum 3.6 g/dL (3.2-5.0); Alkaline Phosphatase 82 U/L (45-117); Anion Gap 6 (5-15); BUN 11 mg/dL (7-18); BUN/Creat Ratio 11.8 RATIO (10-20); Bilirubin, Direct 0.12 mg/dL (0.00-0.30); Chloride 105 mmol/L (98-107); Cholesterol 177 mg/dL (200); Creatinine, Serum 0.94 mg/dL (0.70-1.30); EST Glomerular Filtration Rate 83 mL/min (>60); Est Glom Filt Rate - Afr Amer 101 mL/min (>60); Globulin 3.9 g/dL (2.2-4.2); Glucose 95 mg/dL (74-106); High Density Lipoprotein 59 mg/dL; Potassium 4.2 mmol/L (3.5-5.1); Protein, Total 7.5 g/dL (6.4-8.2); Sodium Level 139 mmol/L (136-145); Triglycerides 105 mg/dL; Very Low Density Lipoprotein 21 mg/dL (5-40)
== END ==
PROVIDERS: PCP Family Medicine; Referring Provider Internal Medicine Cardiovascular Disease; Visit Provider Internal Medicine Cardiovascular Disease
DX: E78.00 Pure hypercholesterolemia, unspecified (principal); E78.5 Hyperlipidemia, unspecified; I10 Essential (primary) hypertension; I25.10 Atherosclerotic heart disease of native coronary artery without angina pectoris; I35.0 Nonrheumatic aortic (valve) stenosis; Z95.1 Presence of aortocoronary bypass graft
CPT/HCPCS: 36415; 71046; 80048; 80061; 80076; 85025

== ENCOUNTER → 2019-12-04 12:50 | Outpatient (CLI) | payer MEDICARE, BC, SELFPAY ==
[2019-11-16 09:28] VITALS: BMI 27.5
--- NOTE | 2019-12-04 12:55 | CR.HP_ITS ---
CR - History & Physical - General Arrival date:: 12/04/19 Arrival time:: 12:58 Date of Referral:: 11/16/19 Date of CR Evaluation:: 12/04/19 Referring Physician: DR. ALLEY MEDRANO Primary Diagnosis: S/P CABG - History of Present Cardiac Event Onset Date: Enter Onset Date of cardiac illnesses in Comment field below Coronary Artery Bypass Graft:: Yes - 09/28/2019 [facility] Type of Symptoms:: CARDIAC MURMUR, SHORTNESS OF BREATH. Interventions with present event:: STRESS TEST, ECHOCARDIOGRAM, EKG AND THEN HEART CATH. - Medications Home Medications: Ambulatory Orders Medication Instructions Recorded atorvastatin 10 mg tablet 10 mg PO QHS 08/15/19 aspirin 81 mg tablet,delayed 81 mg PO DAILY #30 tab 08/22/19 release acetaminophen 650 mg 650 mg PO Q6H PRN tab 10/12/19 tablet,extended release magnesium oxide 400 mg (241.3 mg 400 mg PO DAILY 11/16/19 magnesium) tablet metoprolol succinate 100 mg 100 mg PO DAILY 11/16/19 tablet,extended release 24 hr multivitamin 1 tab PO DAILY 11/16/19 omeprazole 20 mg capsule,delayed 20 mg PO DAILY cap 11/16/19 release - Allergies Allergies/Adverse Reactions: Allergies No Known Allergies Allergy (Verified 11/16/19 09:32) - Sleep Disorder Evaluation Hx of Sleep Apnea: No Do you snore loudly (louder than talking or can be heard through closed doors)?: No Do you often feel tired/ fatigued/ sleepy during daytime?: No Has anyone observed you stop breathing during sleep?: No History of Hypertension (for STOP score): Yes STOP Results: Negative Advanced Directives - Advanced Directives Power of Engineering Program Manager: No Living Will: No Advance Directives Information Provided: Yes Advance Directives on File: No DNR Order?:: No - MOLST See MOLST form: No Past Medical History - Covid-19 Screening Fever: No Unexplained muscle aches: No Current respiratory symptoms: No Upper respiratory infections symptoms: No Gastro-intestinal symptoms: Yes - H/O GERD [id number] symptoms: No Has tested positive for COVID-19 in last 30 days: No Had contact w/person w/symptoms or Covid-19 (+) last 14 days: No Has High Risk Exposures ID'd by Health dept/Inf Control team: No 65 years or older:: Yes Lives in Assisted Living facility:: No Has a chronic lung disease or moderate to severe asthma:: No Has a serious heart condition:: Yes Immunocompromised:: No Severely obese (Body Mass Index of 40 or higher):: No Diabetic:: No Has chronic kidney disease undergoing dialysis:: No - Past Medical Illness Medical History: Past Medical History (Last Reviewed 11/16/19 @ 09:35 by Gege Adrian) Atherosclerotic heart disease of [place] coronary artery without angina pectoris (Chronic) I25.10 Nonrheumatic aortic (valve) stenosis (Resolved) I35.0 Per echo 08/02/2019: Peak gradient 86 mmhg, mean gradient 52 mmhg, calculated valve area 0.5 cm2. Severe aortic valve calcification. Shortness of breath (Acute) R06.02 Dyspnea on exertion (Acute) R06.00 Abnormal nuclear stress test (Acute) R94.39 08/04/2019 Nonrheumatic tricuspid (valve) insufficiency (Chronic) I36.1 mild to mod (1-2+) per echo 08/02/2019 Nonrheumatic mitral (valve) insufficiency (Chronic) I34.0 mild (1+) insufficiency with calcification per echo 08/02 2019 Secondary pulmonary hypertension (Chronic) RVSP 52 mmhg per echo 08/02/2019 with , mitral and tricuspid insufficiency. Severe left ventricular hypertrophy (Chronic) I51.7 Per echo 08/02/2019 Essential hypertension (Chronic) I10 Hyperlipidemia (Chronic) E78.5 GERD (gastroesophageal reflux disease) (Chronic) K21.9 BPH (benign prostatic hyperplasia) N40.0 Greene's esophagus with esophagitis K22.70, K20.9 Hiatal hernia K44.9 Severe aortic stenosis (Inactive) I35.0 Per echo 08/02/2019: Peak gradient 86 mmhg, mean gradient 52 mmhg, calculated valve area 0.5 cm2. Severe aortic valve calcification. - Past Surgical History Surgical History: Past Surgical History (Last Reviewed 11/16/19 @ 09:35 by Gege Adrian) S/P aortic valve replacement with bioprosthetic valve (Chronic) Onset Date: 10/03/19 Z95.3 SVG to OM1, Bioprosthetic AVR(Inspiris #25) per Dr. Griffin Messina @ [facility] 10/03/2019 S/P CABG x 1 (Chronic) Onset Date: 10/03/19 Z95.1 SVG to OM1, Bioprosthetic AVR(Inspiris #25) per Dr. Griffin Messina @ [facility] 10/03/2019 History of right and left heart catheterization Onset Date: 08/28/19 Z98.890 Single vessel CAD of the proximal LCX. Non obstructive coronary arteries. Cardiac output - Preserved The patient has normal pulmonary hemodynamics. Aortic Root Angiographically Normal. Aortic Valve Stenosis- Severe. RECOMMENDATIONS: [facility]er [facility] pt's request for AVR +/- CABG to LCX and LAD. 08/28/19 per ELIDA @ [facility] - Family History Summary Family History: Family History (Last Reviewed 11/16/19 @ 09:35 by Gege Adrian) Other CAD (coronary artery disease) Diabetes Hypertension Social History - Smoking History Smoking Status: Former smoker Years Smokin - QUIT AGE 29'S Hx Tobacco Use: Yes Hx Smoking Exposure: No - Alcohol Use Alcohol Usage: No - Substance Abuse Hx Substance Use: No - Occupation Occupation (List type of work in comments):: Retired - [employer] - Hobbies, Recreation, Social Activities Hobbies: Other - MOWING YARD, WORKING IN GARDEN, [employer]. Recreational Activities: I am able to engage in a few activities Social Environment - Status Marital Status: - Current Living Arrangements Living Environment:: Spouse - Children How many children do you have?: 1 Do any of your children live nearby?: No - Safety Do you feel safe in your surroundings?: Yes - Assistance Do you need any assistance at home?: NO Review of Systems - Review of Systems Hints: Right click = Denies ([place]ash). Left click = Reports ([place]) Review of Present Symptoms: Reports: Shortness of Breath at Rest, Shortness of Breath with Exertion, Operative Discomfort - NOTICABLE BUT NOT PAINFUL SCALE 1- 10 RATE S IT AT A 2., Wound Healing, Fatigue, Heart Arrhythmia/Irregularities - ALOT OF ATRIAL FIBRILLATION PSOT SURGERY BUT HAS DIMINISHED SIGNIFICANTLY., Appetite - Normal. Denies: Dizziness/Lightheadedness, Appetite - Special Diet - TRYING TO CUT OUT SALT, CUT DOWN ON SNACKING. - Pain Is Patient Pain Free?: No Risk Factor Assessment - Chief Complaint Chief Complaint: 74 YR OLAD MALE PATIENT OF DR. VALENCIA WHO PRESENTS TO CR TODAY FOLLOWING [facility] ON 09/28/2019 AT [facility]. - Vital Signs Temperature: 97.3 F Respiratory Rate: 14 Pulse Ox: 97 Blood Pressure: 152/94 - Pulse Pulse Rate: 60 Pulse Rhythm: Regular - Hypertension Blood Pressure Sitting - Left Arm: 152/94 - Blood Cholesterol/Lipids Total Cholesterol (mg/dL) Goal = less than 200 mg/dL: 150 HDL Cholesterol (mg/dL) Goal = less than 40 mg/dL: 59 LDL Cholesterol (mg/dL) Goal = less than 70 mg/dL: 97 Triglycerides (mg/dL) Goal = less than 150 mg/dL: 105 - Diabetes Nutrition Referral for Diabetes: No - Obesity Height: 6 ft Weight:: 203 lb Weight in Pounds: 203.0 lbs Weight Source: Standing Scale Body Mass Index (BMI): 27.5 Nutritional Referral for Obesity: No - Physical Inactivity Physical Inactivity: Recreational activity - Risk Stratification Risk Guidelines: Lowest Risk: Risk Factor for Smoking, Risk Factor for Dyslipidemia, Risk Factor for Diabetes, Risk Factor for Sedentary Lifestyle, Risk Factor for Depression, Moderate Risk: Risk Factor for Obesity, Risk Factor for Hypertension - STILL HAS RESTING BP 152/94, Highest Risk: Risk Factor for Hypertension - For Smoking Smoking Risk Guidelines: Smoking Low Risk: None or quit greater than 6 months ago. Smoking Moderate Risk: Smoker or quit 6 months or less ago. Smoking High Risk: Smoker - For Dyslipidemia Dyslipidemia Risk Guidelines: Low Risk: Moderate Risk: High Risk: 15-25% fat 25.1-29% fat >/= 30% fat. <7% sat fat 7-9% sat fat >9% sat fat. <150 mg chol 150-299 mg chol >/= 300 mg chol. LDL <100 LDL 100-129 LDL >/= 130. Chol/HDL ratio <5.0 Chol/HDL ratio 5.0-6.0 Chol/HDL ratio >6.0. Triglycerides <100 Triglycerides 100-149 Triglycerides >/= 150 - For Diabetes Mellitus Diabetes Risk Guidelines: Diabetes Low Risk: HgA1c <6.5% and/or FBG <120. Diabetes Moderate Risk: HgA1c 6.6-7.9% and/or FBG 120-180. Diabetes High Risk: HgA1c >/= 8% and/or FBG >180 - For Obesity/Overweight Obesity/Overweight Risk Guidelines: Obesity Low Risk: BMI <25.0. Obesity Moderate Risk: BMI 25-29.9. Obesity High Risk: BMI >/= 30.0 - For Hypertension Hypertension Risk Guidelines: Hypertension Low Risk: Systolic <120 and Diastolic <80. Hypertension Moderate Risk: Systolic 120-139 and Diastolic 80-89. Hypertension High Risk: Systolic >/= 140 and Diastolic >/= 90 - For Sedentary Lifestyle Sedentary Lifestyle Risk Guidelines: Sedentary Lifestyle Low Risk: >/= 1,500 kcal/week. Sedentary Lifestyle Moderate Risk: 700-1,499 kcal/week. Sedentary Lifestyle High Risk: < 700 kcal/week - For Depression Depression Risk Guidelines: Depression Low Risk: Not clinically depressed. Depression Moderate Risk: Mildly depressed. Depression High Risk: Clinically depressed - Family History Family History: Family History (Last Reviewed 11/16/19 @ 09:35 by Gege Adrian) Other CAD (coronary artery disease) Diabetes Hypertension Motivation - Motivation to Participate On a scale of 1 to 10, how prepared are you to commit to attending program?: 8 What do you see as barriers to successfully being able to complete the program?: DOESN'T DRIVE AD HAS OTHER APPOINTMENTS What do you see as the benefits of succesfully completing the program? In other words, what do you hope to get out of participating in the program?: GETTING BACK TO NORMAL ACTIVITY, REGULAR EXERCISE, RETURNING TO 95% OR NORM Are there issues you are dealing with that will interfere with completing the program?: NONE Do you have a spouse or signficant other, family or friends who will help support you to complete the program?: YES
--- NOTE | 2019-12-04 12:55 | CR.ITP_ITS ---
Diagnosis - General Information Admitting Diagnosis: S/P CABG Secondary Diagnosis: I25.10, I35.0, I10 Personal Learning Style:: Audio/Visual, Written Barriers to Learning: Vision Impairment Stage of change r/t lifestyle modifications:: Action Gave educational material for:: Treating Heart Disease, Emotions & Heart Disease, Stress Management & Relaxation, Sleep Disorders & Heart Disease, How Th e Heart Works, What it means to have Heart Disease, How Coronary Artery Disease is Diagnosed, Heart Procedures, What Heart Medications Do, Risk Factors & Modifications, Living an Active Life, Nutrition - Education/Goals Individual Counseling: Initial Assessment: Abnormal Cholesterol Levels, High Blood Pressure Cardiac Rehabilitation Goals: 1. Maintain the individual as the primary focus of care. 2. To improve the patient's quality of life. 3. Identification of cardiac risk factors and provide cardiac risk factor management. 4. Enhance the psychosocial status of the patient. 5. Reconditioning enough to allow the patient to resume customary activities. 6. Control symptoms of cardiac disease Personal Goals: Initial Assessment: Improve energy level, Participate in home exercise program, Improve muscle strength and endurance, Improve diet and eating habits (eat healthier), Control risk factors (learn risk factor modification) Scale for measuring improvement of personal goals: Enter appropriate number in Comments. 2 = Unchanged. 3 = Slightly Better. 4 = Moderate Improvement. 5 = Met my Goal - Diagnosis & Disease Process Outcomes/Goals: Pt IDs own risk factors & lifestyle modifications by Session 10, Verbalizes symptoms of angina & response by session 3., Pt independently manages Plan/Interventions: Assist Pt to ID & engage in lifestyle modification to reduce CVD risk, Instruct on individual risk factors, Review symptoms of angina & emergency actions, Review secondary diagnosis & identify educational needs. - Safety Referral to Physical Therapy: No Referral to [facility] Case Management: No Fall Risk Assessed:: Yes Assistive Devices:: None Exercise - Initial Assessment - Visit Date of Eval: 12/04/19 Session #:: 0 - PRE-CARDIAC REHAB Mets: Pre-: >7 METS for 30 minutes by discharge - Physician Prescribed Exercise Modalities: Treadmill, Airdyne, NuStep Frequency: 3x/week for 12 weeks [36 sessions] Intensity: 60-80% of age predicted maximum heart rate reserve Current METSs:: 3.0 Target Heart Rate:: 959-124 Resting Blood Pressure: 152/94 - UNCONTROLLED EKG Type: SINUS BRADYCARDIA - Outcomes & Goals Goals:: Verbalizes understanding of THR, RPE & goal METS by session 6, Documents in home exercise log/reports 30 min aerobic 5 day/wk by DC, Demonstrates accurate pulse taking by DC - Intervention & Plan Exercise Program Goals: Instruct on personal THR & RPE, Instruct on MET level & personal MET goal, Show patient to take own pulse /validate performance until accurate, Instruct on home exercise - Physical Activity Home Exercise Physical Activity - Home Exercise: Safe Exercise, Warm-up, Self-monitoring, Cool-Down, Home Exercise > 30 min Daily, Sitting Time <3 hours/daily - Outcomes & Goals Outcomes/Goals: Demonstrates correct Warm-up/exercise Cool-Down (S3) if = 2.5 METs, Verbalizes symptoms of exercise intolerance by Session 3 (S3), Demonstrate safe equipment use (S3) & follows exercise prescrition (6) - Intervention & Plan Plan/Intervention: Instruct warm-up & cool-down if exercising at > 2 METs, Instruct on symptoms of exercise intolerance & actions to take, Instruct & monitor on saf, Assess intial functional capacity & safety risk Nutrition - Initial Assessment - Program Goals Nutrition Program Goals: LDL <100 optimal. 100 - 129 Near optimal. 130 - 159 Borderline High. 160 - 189 High. Total Cholesterol <200 desirable. 200 - 239 Borderline High. >/= 240 High. HDL < 40 Low >/=60 High. Triglycerides <150 desirable. <199 optimal. VlDL 5 - 40. HgbA1C <7%. BMI <25 Patient has diagnosis of Hyperlipidemia (ICD E78)?: Yes - Visit Date of Assessment:: 12/04/19 Session #:: 0 - PRE-CARDIAC REHAB - Cholesterol/Lipids Triglycerides (mg/dL): 105 Total Cholesterol (mg/dL): 150 LDL Cholesterol (mg/dL): 97 HDL Cholesterol (mg/dL): 59 Determine presence & major risk factors that modify LDL goal: Hypertension or hypertensive medication, Family history of premature CHD in Male < 55 years: female <65 yearsFa, Age men > 45 years; women >/= 55 years Outcomes/Goals: Pt IDs own risk factors & lifestyle modifications by Session 10, Verbalizes symptoms of angina & response by session 3., Pt independently manages Intervention/Plan: Instruct on personal lipid levels & lipid goals/NCEP guidelines, Instruct on cholesterol Referral to dietitian:: Yes - Diabetes (Other Core Measures) Diabetes Type: Not Applicable - Weight Mgt (Other Care) Not Applicable: Yes Height: 6 ft Weight:: 203 lb BMI: 27.5 Diagnosis Overweight/Obesity BMI> 30% ICD-10 E66: No Diagnosis High BMI/Morbid Obesity BMI> 35% ICD-10 Z68: No Outcomes/Goals: Pt sets, maintains & shows weight loss goal & trend during rehab Intervention/Plan: Instruct on ideal BMI & set weight loss goal w/patient - Healthy Eating Habits Will attend diet classes:: Yes Outcomes/Goals:: Consume diet rich in vegs,fruits,whole grain/high fiber,fish,lean meat, Limit sat/trans fats,cholesterol & added salts & sugars Intervention/Plan:: Assess current eating habits - Education Gave educational materials for:: Healthy eating Medical - Initial Assessment - Visit Date of Eval: 12/04/19 Session #:: 0 - PRE-CARDIAC REHAB - Medication Compliance Preventative Medication(s):: Aspirin, Beta juvencio H/O mental health issues: depression, anxiety, or addiction?: No Doesn?t believe in the benefits of treatment?: No Believes medications are unnecessary or harmful?: No Has a concern about medication side effects?: No Expresses concern over the cost of medications?: No Outcomes/Goals: Verbalizes medications,desired effect & common side effects @ DC, Pt self-reports following medication regimen, Keeps card in wallet w/medications listed by DC Interventions/plans: Instruct on medication effects & side effects, Review medication list w/patient every two weeks, Instruct importance of taking meds as ordered & assist problem solving - Tobacco Use Tobacco Use: Non-smoker - Hypertension Hypertension Diagnosis:: Hypertension ICD-10 I10 Resting Blood Pressure:: 152/94 - STILL UNCONTROLLED HYPERTENSION WILL MONITOR [place] [employer] Hypertension Guidelines: [place] [employer] Hypertension Guidelines. Normal BP Less than 120/80. Elevated BP 120/80. Hypertension Stage 1: BP 130-139/80-89. Hypertesnion Stage 2: BP 140 or higher/90 or higher. Hypertension Crisis: BP higher than 180/120 Outcomes/Goals: Able to verbalize/achieve optimal blood pressure <130/80, Incorporates diet changes & exercise for blood pressure control by DC Interventions/plan: Instruct on optimal blood pressure, hypertension & medications, Instruct on effects of sodium, alcohol, stress, exercise &hypertension - Tobacco Cessation Referral Smoking Cessation Referral:: No Individual Education/Counseling:: No Education Schedule Given:: Yes Psychosocial - Initial Assess - VIsit Date of Eval: 12/04/19 Session #:: 0 - PRE-CARDIAC REHAB Not Applicable: Yes History of previous Mental disease:: No - Target Goals Target Goals: Assess presence or absence of depression. Using a valid screening tool, maximizes coping skills. Positive support system - Psychosocial Test Tool Used:: Chrisans Wilfredo QOL Cardiac, PHQ-9 Questionnaire phq-9 Severity: Severity. 1-4 Minimal Depression. 5-9 Mild Depression. 10-14 Moderate Depression. 15-19 Moderately Sever Depression. 20-27 Severe Depression. Rule: - Referral to Behavioral Health PS - Interventions: Yes Attend Stress Management Classes, No Referral to Behavioral Health if PHQ-9 score >9:, No Referral to [facility], No Referral to Physician if PHQ-9 if score is 5-9: - Outcomes/Goals: See list Psychosocial Outcomes/Goals:: ID's personal stressors & 2 strategies to manage stress by discharge - Intervention/Plan: See List Interventions/Plan:: Assess stressors,coping strategies & signs of derpression on admission, Instruct/assist pt to develop coping & personal stress Mgt strategies, Instruct patient to recognize signs & symptoms of depression, Instruct patient to recog Patient Health Questionnaire Initial Assessment 1. Little interest or pleasure in doing things: Not at all 2. Feeling down, depressed, or hopeless: Not at all 3. Trouble falling or staying asleep, or sleeping too much: Nearly every day 4. Feeling tired or having little energy: Not at all 5. Poor appetite or overeating: Several days 6. Feeling bad about yourself -- or that you are a failure or have let yourself or your family down: Not at all 7. Trouble concentrating on things, such as reading the newspaper or watching television: Not at all 8. Moving or speaking so slowly that other people could have noticed. Or the opposite - being so fidgety or restless that you have been moving around a lot more than usual: Not at all 9. Thoughts that you would be better off , or of hurting yourself in some way: Not at all How difficult have these problems made it for you to do your work, take care of things at home, or get along with other people?: Somewhat difficult Total Score: 4 EMIL-Q SV Test - Statements CAD is a disease of the arteries in the heart: False Examples of risk factors for heart disease: True Angina is chest pain or discomfort: True The benefits of resistance training include: True Eating more meat and dairy products: False Anti-platelet medications such as aspirin are important: True The only effective way to manage stress: False An exercise warm-up slowly increases heart rate: True Prepared, processed foods usually have high sodium: True Depression is common after a heart attack: True The statin medications lower cholesterol: True To control blood pressure, lower the amount of sodium: True If someone gets chest discomfort during walking: False Transfats are partially hydrogenated vegetable oils: True Sleep apnea that is not treated increases the risk: False To control cholesterol, one should become a vegetarian: False Someone knows if he/she is exercising at the right level: True Diabetes cannot be prevented with exercise & health eating: False Stress is a large risk for heart attack: True A diet that can help lower blood pressure is rich in: True - Total Score Total Correct Responses: 20 Self-Efficacy Initial Assessment We would like to know how confident you are in doing certain activities. Please select your confidence level for:: Select your confidence level for the following using the scale 1-10 where 1 is not at all confident and 10 is totally confident. Your score is the average of all 6 responses. Fatigue: How confident are you that you can keep the fatigue caused by your disease from interfering with the things you want to do? Select Number: 8 Physical Discomfort or Pain: How confident are you that you can keep the physical discomfort or pain of your disease from interfering with the things you want to do? Select Number: 8 Emotional Distress: How confident are you that you can keep the emotional distress caused by your disease from interfering with the things you want to do? Select Number: 8 Other Symptoms or Health Problems: How confident are you that you can keep other symptoms or health problems from interfering with the things you want to do? Select Number: 5 Different Tasks and Activities: How confident are you that you can do the different tasks and activities needed to manage your health condition so as to reduce your need to see a doctor? Select Number: 8 Medication: How confident are you that you can do things other than just taking medication to reduce how much your illness affects your everyday life? Select Number: 8 Total Score:: 7 Nutrition Survey - Nutrition Survey Instructions Scoring Instructions: Scoring is as follows: Yes = 1 points. No = 0 point. Patient score that is >/=12 is considered to be at potential nutritional risk and could benefit from a referral to a registered dietitian. - Nutrition Survey Initial Have you lost >10 lbs over the past 2 months without trying?: No Are you following a special diet at home for diabetes, low fat, or low salt?: Yes Are you interested in meeting with a dietitian for help understanding your diet?: Yes Do you eat less than 3 meals a day?: No Do you eat fatty meats (espinal, sausage, ribs, etc), fried foods, desserts, large amounts of salad dressings, margarine, butter, or cheese most days?: No Do you have food allergies? [Enter types in comment field]: No Do you eat in restaurants more than 3 times a week?: No Do you season food with salt, seasoning salt, or garlic salt?: No Do you used canned, boxed, frozen meals, or soups, seasoning packets?: Yes - PATIENT IS INTERETED IN MEETING WITH NUTRITIONAL SERVICES Total Score:: 3
[2019-12-04 13:13] VITALS: BP 152/94; BMI 27.5
[2019-12-04 13:27] VITALS: BP 152/94; PULSE 60; RESP 14; TEMP 36.3; O2SAT 97; BMI 27.5
== END ==
PROVIDERS: PCP Family Medicine; Referring Provider Specialist; Visit Provider Specialist
DX: K21.9 Gastro-esophageal reflux disease without esophagitis (principal); I10 Essential (primary) hypertension; E78.5 Hyperlipidemia, unspecified; Z95.1 Presence of aortocoronary bypass graft; Z95.3 Presence of xenogenic heart valve

== ENCOUNTER → 2019-12-25 11:49 | Outpatient (CLI) | payer MEDICARE, BC, SELFPAY ==
[2019-12-04 13:13] VITALS: BMI 27.5
[2019-12-04 13:27] VITALS: BMI 27.5
[2019-12-25 11:23] LABS: Anion Gap 8 (5-15); BUN 17 mg/dL (7-18); Calcium,Total 8.9 mg/dL (8.5-10.1); Chloride 107 mmol/L (98-107); EST Glomerular Filtration Rate 77 mL/min (>60); Est Glom Filt Rate - Afr Amer 94 mL/min (>60); Glucose 97 mg/dL (74-106); Magnesium 2.2 mg/dL (1.6-2.6); Potassium 3.9 mmol/L (3.5-5.1); Sodium Level 138 mmol/L (136-145)
== END ==
PROVIDERS: PCP Family Medicine; Referring Provider Internal Medicine Cardiovascular Disease; Visit Provider Internal Medicine Cardiovascular Disease
DX: I25.10 Atherosclerotic heart disease of native coronary artery without angina pectoris (principal); I35.0 Nonrheumatic aortic (valve) stenosis; E78.5 Hyperlipidemia, unspecified; I10 Essential (primary) hypertension; I36.1 Nonrheumatic tricuspid (valve) insufficiency; I34.0 Nonrheumatic mitral (valve) insufficiency; Z95.1 Presence of aortocoronary bypass graft; Z95.3 Presence of xenogenic heart valve
CPT/HCPCS: 36415; 80048; 83735; 93225; 93226; 93798

== ENCOUNTER → 2019-12-28 10:38 | Outpatient (CLI) | payer MEDICARE, BC, SELFPAY ==
[2019-12-04 13:13] VITALS: BMI 27.5
[2019-12-04 13:27] VITALS: BMI 27.5
[2019-12-28 13:21] LABS: T4 Total, Thyroxin 10.5 ug/dL (4.5-12.1); Thyroid Stim Hormone (TSH) 1.71 uIU/mL (0.358-3.74)
== END ==
PROVIDERS: PCP Family Medicine; Referring Provider Internal Medicine Cardiovascular Disease; Visit Provider Internal Medicine Cardiovascular Disease
DX: I49.3 Ventricular premature depolarization (principal); I25.10 Atherosclerotic heart disease of native coronary artery without angina pectoris; R06.00 Dyspnea, unspecified; I10 Essential (primary) hypertension; Z95.1 Presence of aortocoronary bypass graft
CPT/HCPCS: 36415; 84436; 84443

== ENCOUNTER 2019-12-29 13:00 | Outpatient (RCR) | payer MEDICARE, BC, SELFPAY ==
[2019-12-04 13:13] VITALS: BMI 27.5
[2019-12-04 13:27] VITALS: BMI 27.5
== END 2019-12-30 23:59 ==
LOC: CR 13:00
PROVIDERS: PCP Family Medicine; Referring Provider Internal Medicine Cardiovascular Disease; Visit Provider Internal Medicine Cardiovascular Disease
DX: I25.10 Atherosclerotic heart disease of native coronary artery without angina pectoris (principal); I35.0 Nonrheumatic aortic (valve) stenosis; E78.5 Hyperlipidemia, unspecified; I10 Essential (primary) hypertension; Z95.1 Presence of aortocoronary bypass graft
CPT/HCPCS: 93798

== ENCOUNTER 2020-01-29 13:00 | Outpatient (RCR) | payer MEDICARE, BC, SELFPAY ==
[2019-12-04 13:13] VITALS: BMI 27.5
[2019-12-04 13:27] VITALS: BMI 27.5
--- NOTE | 2020-01-02 11:23 | PCM.CR.ITP ---
Exercise - 30-day Assessment - Visit Date of Eval: 01/02/20 Session #:: 12 - Physician Prescribed Exercise Modalities: Treadmill, Airdyne, NuStep Frequency: 3x/week for 12 weeks [36 sessions] Intensity: 60-80% of age predicted maximum heart rate reserve Current METSs:: 5.0 increased from 3.0 Target Heart Rate:: 95-124 Current RPE:: 13-14 Maximum Excercise HR:: 103 Resting Blood Pressure: 118/70 - controlled with medications Maximum Exercise Blood Pressure: 148/70 - normal response to exercise EKG Type: SB to sinus tach rare PVC, rare ventricular bigeminy, atrial triplet. Current Physical Activity or Exercising minutes: Patient was started on amiodarone yesterday 12/31/2019 for ectopy. - Intervention & Plan Exercise Program Goals: Instruct on personal THR & RPE, Instruct on MET level & personal MET goal, Show patient to take own pulse /validate performance until accurate, Instruct on home exercise - 30-day Reassessments 30 day Reassessments:: Progressing - Physical Activity Home Exercise Physical Activity - Home Exercise: Safe Exercise, Warm-up, Self-monitoring, Cool-Down, Home Exercise > 30 min Daily, Sitting Time <3 hours/daily - Outcomes & Goals Outcomes/Goals: Demonstrates correct Warm-up/exercise Cool-Down (S3) if = 2.5 METs, Verbalizes symptoms of exercise intolerance by Session 3 (S3), Demonstrate safe equipment use (S3) & follows exercise prescrition (6) - Intervention & Plan Plan/Intervention: Instruct warm-up & cool-down if exercising at > 2 METs, Instruct on symptoms of exercise intolerance & actions to take, Instruct & monitor on saf, Assess intial functional capacity & safety risk - 30-day Reassessments 30 day Reassessments:: Progressing Nutrition - 30-Day Assessment - Program Goals Nutrition Program Goals: LDL <100 optimal. 100 - 129 Near optimal. 130 - 159 Borderline High. 160 - 189 High. Total Cholesterol <200 desirable. 200 - 239 Borderline High. >/= 240 High. HDL < 40 Low >/=60 High. Triglycerides <150 desirable. <199 optimal. VlDL 5 - 40. HgbA1C <7%. BMI <25 Patient has diagnosis of Hyperlipidemia (ICD E78)?: Yes - Visit Date of Assessment:: 01/02/20 Session #:: 12 - no recent labs - Cholesterol/Lipids Determine presence & major risk factors that modify LDL goal: Hypertension or hypertensive medication, Family history of premature CHD in Male < 55 years: female <65 yearsFa, Age men > 45 years; women >/= 55 years Outcomes/Goals: Pt IDs own risk factors & lifestyle modifications by Session 10, Verbalizes symptoms of angina & response by session 3., Pt independently manages Intervention/Plan: Instruct on personal lipid levels & lipid goals/NCEP guidelines, Instruct on cholesterol Referral to dietitian:: Yes - Medical Nutrition Therapy 30-day Reassessments:: Progressing - Diabetes (Other Core Measures) Diabetes Type: Not Applicable - Weight Mgt (Other Care) Not Applicable: Yes Height: 6 ft Weight:: 206 lb BMI: 27.9 Diagnosis Overweight/Obesity BMI> 30% ICD-10 E66: No Diagnosis High BMI/Morbid Obesity BMI> 35% ICD-10 Z68: No Outcomes/Goals: Pt sets, maintains & shows weight loss goal & trend during rehab Intervention/Plan: Instruct on ideal BMI & set weight loss goal w/patient 30 day Reassessments:: Progressing - Healthy Eating Habits Will attend diet classes:: Yes Outcomes/Goals:: Consume diet rich in vegs,fruits,whole grain/high fiber,fish,lean meat, Limit sat/trans fats,cholesterol & added salts & sugars Intervention/Plan:: Assess current eating habits 30-day Reassessments:: Progressing - Education Gave educational materials for:: Healthy eating Medical- 30-Day Assessment - Visit Date of Eval: 01/02/20 Session #:: 12 - Medication Compliance Preventative Medication(s):: Aspirin, Statin/lipid - started on atnitarrythmic - amiodarone 12/31/2019 for ectopy., Beta juvencio H/O mental health issues: depression, anxiety, or addiction?: No Doesn?t believe in the benefits of treatment?: No Believes medications are unnecessary or harmful?: No Has a concern about medication side effects?: No Expresses concern over the cost of medications?: No Outcomes/Goals: Verbalizes medications,desired effect & common side effects @ DC, Pt self-reports following medication regimen, Keeps card in wallet w/medications listed by DC Interventions/plans: Instruct on medication effects & side effects, Review medication list w/patient every two weeks, Instruct importance of taking meds as ordered & assist problem solving 30-day Reassessments:: Progressing - Tobacco Use Tobacco Use: Non-smoker - Hypertension Hypertension Diagnosis:: Hypertension ICD-10 I10 Resting Blood Pressure:: 118/70 [place] [employer] Hypertension Guidelines: [place] [employer] Hypertension Guidelines. Normal BP Less than 120/80. Elevated BP 120/80. Hypertension Stage 1: BP 130-139/80-89. Hypertesnion Stage 2: BP 140 or higher/90 or higher. Hypertension Crisis: BP higher than 180/120 Peak Exercise Blood Pressure:: 148/70 - normal exercise response Outcomes/Goals: Able to verbalize/achieve optimal blood pressure <130/80, Incorporates diet changes & exercise for blood pressure control by DC Interventions/plan: Instruct on optimal blood pressure, hypertension & medications, Instruct on effects of sodium, alcohol, stress, exercise &hypertension 30 day Reassessments:: Progressing - Tobacco Cessation Referral Smoking Cessation Referral:: No Individual Education/Counseling:: No Education Schedule Given:: Yes Psychosocial - 30-Day Assess - VIsit Date of Eval: 01/02/20 Session #:: 12 Not Applicable: Yes History of previous Mental disease:: No - Target Goals Target Goals: Assess presence or absence of depression. Using a valid screening tool, maximizes coping skills. Positive support system - Psychosocial Test Tool Used:: PHQ-9 Questionnaire phq-9 Severity: Severity. 1-4 Minimal Depression. 5-9 Mild Depression. 10-14 Moderate Depression. 15-19 Moderately Sever Depression. 20-27 Severe Depression. Rule: - Referral to Behavioral Health PS - Interventions: Yes Attend Stress Management Classes, No Referral to Behavioral Health if PHQ-9 score >9:, No Referral to [facility], No Referral to Physician if PHQ-9 if score is 5-9: - Outcomes/Goals: See list Psychosocial Outcomes/Goals:: ID's personal stressors & 2 strategies to manage stress by discharge - Intervention/Plan: See List Interventions/Plan:: Assess stressors,coping strategies & signs of derpression on admission, Instruct/assist pt to develop coping & personal stress Mgt strategies, Instruct patient to recognize signs & symptoms of depression, Instruct patient to recog - 30-day Reassessments: 30 day Reassessments:: Progressing Patient Health Questionnaire 30-Day Re-eval Assessment 1. Little interest or pleasure in doing things: Not at all 2. Feeling down, depressed, or hopeless: Not at all 3. Trouble falling or staying asleep, or sleeping too much: More than half the days 4. Feeling tired or having little energy: Not at all 5. Poor appetite or overeating: Not at all 6. Feeling bad about yourself -- or that you are a failure or have let yourself or your family down: Not at all 7. Trouble concentrating on things, such as reading the newspaper or watching television: Not at all 8. Moving or speaking so slowly that other people could have noticed. Or the opposite - being so fidgety or restless that you have been moving around a lot more than usual: Not at all 9. Thoughts that you would be better off , or of hurting yourself in some way: Not at all How difficult have these problems made it for you to do your work, take care of things at home, or get along with other people?: Somewhat difficult Total Score: 2 Self-Efficacy 30-Day Re-eval Assessment We would like to know how confident you are in doing certain activities. Please select your confidence level for:: Select your confidence level for the following using the scale 1-10 where 1 is not at all confident and 10 is totally confident. Your score is the average of all 6 responses. Fatigue: How confident are you that you can keep the fatigue caused by your disease from interfering with the things you want to do? Select Number: 8 Physical Discomfort or Pain: How confident are you that you can keep the physical discomfort or pain of your disease from interfering with the things you want to do? Select Number: 9 Emotional Distress: How confident are you that you can keep the emotional distress caused by your disease from interfering with the things you want to do? Select Number: 9 Other Symptoms or Health Problems: How confident are you that you can keep other symptoms or health problems from interfering with the things you want to do? Select Number: 8 Different Tasks and Activities: How confident are you that you can do the different tasks and activities needed to manage your health condition so as to reduce your need to see a doctor? Select Number: 9 Medication: How confident are you that you can do things other than just taking medication to reduce how much your illness affects your everyday life? Select Number: 10 Total Score:: 8
[2020-01-02 11:33] VITALS: BP 118/70; BP 148/70; BMI 27.9
== END 2020-01-29 23:59 ==
LOC: CR 13:00
PROVIDERS: PCP Family Medicine; Referring Provider Internal Medicine Cardiovascular Disease; Visit Provider Internal Medicine Cardiovascular Disease
DX: I25.10 Atherosclerotic heart disease of native coronary artery without angina pectoris (principal); I35.0 Nonrheumatic aortic (valve) stenosis; E78.5 Hyperlipidemia, unspecified; I10 Essential (primary) hypertension; Z95.1 Presence of aortocoronary bypass graft
CPT/HCPCS: 93798

== ENCOUNTER 2020-02-28 13:00 | Outpatient (RCR) | payer MEDICARE, BC, SELFPAY ==
[2019-12-04 13:27] VITALS: BMI 27.5
[2020-01-02 11:33] VITALS: BMI 27.9
[2020-01-30 00:34] VITALS: BP 118/70; BP 148/70
--- NOTE | 2020-02-02 08:34 | CR.ITP_ITS ---
Exercise - 60-day Assessment - Visit Date of Eval: 02/02/20 Session #:: 23 - Physician Prescribed Exercise Modalities: Treadmill, Airdyne, NuStep Frequency: 3x/week for 12 weeks [36 sessions] Intensity: 60-80% of age predicted maximum heart rate reserve Current METSs:: 6 Target Heart Rate:: 95-124 Current RPE:: 13-14 Maximum Excercise HR:: 99 Resting Blood Pressure: 140/82 Maximum Exercise Blood Pressure: 160/70 EKG Type: sinus lauryn - Outcomes & Goals Goals:: Verbalizes understanding of THR, RPE & goal METS by session 6, Documents in home exercise log/reports 30 min aerobic 5 day/wk by DC, Demonstrates accurate pulse taking by DC, Other additional outcome/goals: see below - Intervention & Plan Exercise Program Goals: Instruct on personal THR & RPE, Instruct on MET level & personal MET goal, Show patient to take own pulse /validate performance until accurate, Instruct on home exercise, Other additional plan/int - 30-day Reassessments 30 day Reassessments:: Progressing - Physical Activity Home Exercise Physical Activity - Home Exercise: Safe Exercise, Warm-up, Self-monitoring, Cool-Down, Home Exercise > 30 min Daily, Sitting Time <3 hours/daily - Outcomes & Goals Outcomes/Goals: Demonstrates correct Warm-up/exercise Cool-Down (S3) if = 2.5 METs, Verbalizes symptoms of exercise intolerance by Session 3 (S3), Demonstrate safe equipment use (S3) & follows exercise prescrition (6), Other: See below - Intervention & Plan Plan/Intervention: Instruct warm-up & cool-down if exercising at > 2 METs, Instruct on symptoms of exercise intolerance & actions to take, Instruct & monitor on saf, Assess intial functional capacity & safety risk, Other See below - 30-day Reassessments 30 day Reassessments:: Progressing Nutrition - 60-Day Assessment - Program Goals Nutrition Program Goals: LDL <100 optimal. 100 - 129 Near optimal. 130 - 159 Borderline High. 160 - 189 High. Total Cholesterol <200 desirable. 200 - 239 Borderline High. >/= 240 High. HDL < 40 Low >/=60 High. Triglycerides <150 desirable. <199 optimal. VlDL 5 - 40. HgbA1C <7%. BMI <25 Patient has diagnosis of Hyperlipidemia (ICD E78)?: Yes - Visit Date of Assessment:: 02/02/20 Session #:: 23 - Cholesterol/Lipids Determine presence & major risk factors that modify LDL goal: Hypertension or hypertensive medication, Low HDL cholesterol <40 mg/dL*, Family history of premature CHD in Male < 55 years: female <65 yearsFa, Age men > 45 years; women >/= 55 years Outcomes/Goals: Pt IDs own risk factors & lifestyle modifications by Session 10, Verbalizes symptoms of angina & response by session 3., Pt independently manages, Other Additional Outcomes/Goals: Intervention/Plan: Advocate for lipid panel cholesterol medication if applicable, Instruct on personal lipid levels & lipid goals/NCEP guidelines, Instruct on cholesterol, Other additional plan/int Referral to dietitian:: Yes - medical nutritional therapy 30-day Reassessments:: Progressing - Diabetes (Other Core Measures) Diabetes Type: Not Applicable - Weight Mgt (Other Care) Height: 6 ft Weight:: 93.44 kg BMI: 27.9 Diagnosis Overweight/Obesity BMI> 30% ICD-10 E66: No Diagnosis High BMI/Morbid Obesity BMI> 35% ICD-10 Z68: No Outcomes/Goals: Pt sets, maintains & shows weight loss goal & trend during rehab, Other additional outcomes/goals Intervention/Plan: Instruct on ideal BMI & set weight loss goal w/patient, Assist pt to ID & incorporate diet changes for weight loss by S9, Refer to Structured Weight Loss program as appropriate, Encourage goal of using 250- 300dcal per session for weight loss, Other additional plan/interventions 30 day Reassessments:: Progressing - Healthy Eating Habits Will attend diet classes:: Yes Outcomes/Goals:: Consume diet rich in vegs,fruits,whole grain/high fiber,fish,lean meat, Limit sat/trans fats,cholesterol & added salts & sugars, Other additional outcome/goals: Intervention/Plan:: Assess current eating habits, Other Additional plan/interventions 30-day Reassessments:: Progressing Medical- 60-Day Assessment - Visit Date of Eval: 02/02/20 Session #:: 23 - Medication Compliance Preventative Medication(s):: Aspirin, Statin/lipid, Beta juvencio - stareted amiodarone 12/31/2019 H/O mental health issues: depression, anxiety, or addiction?: No Doesn?t believe in the benefits of treatment?: No Believes medications are unnecessary or harmful?: No Has a concern about medication side effects?: No Expresses concern over the cost of medications?: No Outcomes/Goals: Verbalizes medications,desired effect & common side effects @ DC, Pt self-reports following medication regimen, Keeps card in wallet w/medications listed by DC, Other additional outcome/goals: Interventions/plans: Instruct on medication effects & side effects, Review medication list w/patient every two weeks, Instruct importance of taking meds as ordered & assist problem solving, Other additional 30-day Reassessments:: Progressing - Tobacco Use Tobacco Use: Non-smoker Do you use smokeless tobacco?: No - Hypertension [employer] [employer] Hypertension Guidelines: [place] [employer] Hypertension Guidelines. Normal BP Less than 120/80. Elevated BP 120/80. Hypertension Stage 1: BP 130-139/80-89. Hypertesnion Stage 2: BP 140 or higher/90 or higher. Hypertension Crisis: BP higher than 180/120 Outcomes/Goals: Able to verbalize/achieve optimal blood pressure <130/80, Incorporates diet changes & exercise for blood pressure control by DC, Other additional outcomes/goals Interventions/plan: Instruct on optimal blood pressure, hypertension & medications, Instruct on effects of sodium, alcohol, stress, exercise &hypertension, Other additional plan/interventions 30 day Reassessments:: Progressing - Tobacco Cessation Referral Smoking Cessation Referral:: No Individual Education/Counseling:: No Education Schedule Given:: Yes Psychosocial - 60-Day Assess - VIsit Date of Eval: 02/02/20 Session #:: 23 History of previous Mental disease:: No - Target Goals Target Goals: Assess presence or absence of depression. Using a valid screening tool, maximizes coping skills. Positive support system - Psychosocial Test phq-9 Severity: Severity. 1-4 Minimal Depression. 5-9 Mild Depression. 10-14 Moderate Depression. 15-19 Moderately Sever Depression. 20-27 Severe Depression. Rule: - Outcomes/Goals: See list Psychosocial Outcomes/Goals:: ID's personal stressors & 2 strategies to manage stress by discharge, Other Additional outcome/goals: - Intervention/Plan: See List Interventions/Plan:: Assess stressors,coping strategies & signs of derpression on admission, Instruct/assist pt to develop coping & personal stress Mgt strategies, Refer to Behavioral Health if appropriate, Refer to Physician if appropriate, Instruct patient to recognize signs & symptoms of depression, Instruct patient to recog, Other additional plan/intervention - 30-day Reassessments: 30 day Reassessments:: Progressing Patient Health Questionnaire 60-Day Re-eval Assessment 1. Little interest or pleasure in doing things: Not at all 2. Feeling down, depressed, or hopeless: Not at all 3. Trouble falling or staying asleep, or sleeping too much: More than half the days 4. Feeling tired or having little energy: Not at all 5. Poor appetite or overeating: Not at all 6. Feeling bad about yourself -- or that you are a failure or have let yourself or your family down: Not at all 7. Trouble concentrating on things, such as reading the newspaper or watching television: Not at all 8. Moving or speaking so slowly that other people could have noticed. Or the opposite - being so fidgety or restless that you have been moving around a lot more than usual: Not at all 9. Thoughts that you would be better off , or of hurting yourself in some way: Not at all How difficult have these problems made it for you to do your work, take care of things at home, or get along with other people?: Somewhat difficult Total Score: 2 Self-Efficacy 60-Day Re-eval Assessment We would like to know how confident you are in doing certain activities. Please select your confidence level for:: Select your confidence level for the following using the scale 1-10 where 1 is not at all confident and 10 is totally confident. Your score is the average of all 6 responses. Fatigue: How confident are you that you can keep the fatigue caused by your disease from interfering with the things you want to do? Select Number: 8 Physical Discomfort or Pain: How confident are you that you can keep the physical discomfort or pain of your disease from interfering with the things you want to do? Select Number: 9 Emotional Distress: How confident are you that you can keep the emotional distress caused by your disease from interfering with the things you want to do? Select Number: 9 Other Symptoms or Health Problems: How confident are you that you can keep other symptoms or health problems from interfering with the things you want to do? Select Number: 8 Different Tasks and Activities: How confident are you that you can do the different tasks and activities needed to manage your health condition so as to reduce your need to see a doctor? Select Number: 9 Medication: How confident are you that you can do things other than just taking medication to reduce how much your illness affects your everyday life? Select Number: 10 Total Score:: 8
[2020-02-02 08:45] VITALS: BP 140/82; BMI 27.9
== END 2020-02-29 23:59 ==
LOC: CR 13:00
PROVIDERS: PCP Family Medicine; Referring Provider Internal Medicine Cardiovascular Disease; Visit Provider Internal Medicine Cardiovascular Disease
DX: I25.10 Atherosclerotic heart disease of native coronary artery without angina pectoris (principal); I35.0 Nonrheumatic aortic (valve) stenosis; I10 Essential (primary) hypertension; E78.5 Hyperlipidemia, unspecified; Z95.1 Presence of aortocoronary bypass graft
CPT/HCPCS: 93798

== ENCOUNTER 2020-03-04 15:01 | Outpatient (RCR) | payer MEDICARE, BC, SELFPAY ==
[2019-12-04 13:27] VITALS: BMI 27.5
[2020-02-02 08:45] VITALS: BMI 27.9
[2020-03-01 00:29] VITALS: BP 118/70; BP 140/82; BP 148/70
== END 2020-03-31 23:59 ==
LOC: CR 15:01
PROVIDERS: PCP Family Medicine; Referring Provider Internal Medicine Cardiovascular Disease; Visit Provider Internal Medicine Cardiovascular Disease
DX: I25.10 Atherosclerotic heart disease of native coronary artery without angina pectoris (principal); Z95.1 Presence of aortocoronary bypass graft; I35.0 Nonrheumatic aortic (valve) stenosis; I10 Essential (primary) hypertension; E78.5 Hyperlipidemia, unspecified
CPT/HCPCS: 93798

== ENCOUNTER 2020-04-17 10:41 | Outpatient (RCR) | payer MEDICARE, BC, SELFPAY ==
[2019-12-04 13:27] VITALS: BMI 27.5
[2020-02-02 08:45] VITALS: BMI 27.9
== END 2020-04-17 23:59 ==
LOC: IMMUN 10:41
PROVIDERS: PCP Family Medicine; Referring Provider Family Medicine; Visit Provider Family Medicine
DX: Z23 Encounter for immunization (principal)
CPT/HCPCS: 0011A; 0012A; 91301

== ENCOUNTER → 2020-09-26 13:55 | Outpatient (CLI) | payer MEDICARE, BC, SELFPAY ==
[2020-02-02 08:45] VITALS: BMI 27.9
[2020-09-17 15:58] VITALS: BMI 28.2
--- NOTE | 2020-09-26 14:16 | ECHOD_ITS ---
Reason For Study: VALVE REPLACEMENT EVAL Procedure This was a 2D Doppler, Color Flow transthoracic echocardiogram. The exam was of adequate technical quality. Exam performed in department. Left Ventricle Normal LV size. Left ventricular systolic function is normal. The estimated ejection fraction is 60 %. No regional wall motion abnormalities noted. Right Ventricle Normal RV size. Normal systolic function. Atria The left atrium is moderately enlarged. The right atrium is moderately enlarged. No doppler evidence for ASD. Mitral Valve There is moderate mitral annular calcification. Extension the mitral annular calcification on the base of the posterior mitral valve leaflet. Anterior leaflet diffuse mitral valve thickening. Mild (1+) eccentric mitral valve insufficiency. Tricuspid Valve Normal tricuspid valve. Mild to moderate (1-2+) tricuspid valve insufficiency. Right ventricular systolic pressure estimated to be 42 mmHg. Aortic Valve Stable appearing bioprosthetic aortic valve apparatus. Pulmonic Valve The pulmonic valve is not well visualized. Mild (1+) pulmonic valve insufficiency. Great Vessels Normal sized aortic root. Pericardium/Pleural No pericardial effusion. MMode/2D Measurements & Calculations LVIDd: 5.2 cm IVSd: 1.2 cm LVOT diam: 2.0 cm LVIDs: 3.6 cm LVPWd: 1.2 cm LVOT area: 3.1 cm2 RVDd: 4.0 cm FS: 31.1 % Ao root diam: 3.4 cm LAV(MOD-bp): 87.5 ml LVAd ap4: 38.1 cm2 LAV(MOD-bp) Indexed: 40.4 ml/m2 LVLd ap4: 8.3 cm LAV(MOD-sp2): 84.3 ml EDV(MOD-sp4): 143.4 ml LAV(MOD-sp4): 88.0 ml EDV(sp4-el): 147.7 ml LVAs ap4: 21.4 cm2 LVLs ap4: 7.1 cm ESV(MOD-sp4): 54.0 ml ESV(sp4-el): 54.4 ml EF(MOD-sp4): 62.4 % EF(sp4-el): 63.1 % SV(MOD-sp4): 89.4 ml SV(sp4-el): 93.2 ml LA A4 area: 26.1 cm2 LA dimension(2D): 4.8 cm RA A4 area: 27.6 cm2 Time Measurements MV dec time: 0.43 sec Doppler Measurements & Calculations MV E max vaughn: 106.2 cm/sec Lat Peak E' Vaughn: 10.2 cm/sec Med Peak E' Vaughn: 7.3 cm/sec MV A max vaughn: 89.8 cm/sec E/E' lat: 10.4 E/E' med: 14.5 MV E/A: 1.2 Ao V2 max: 241.7 cm/sec LV V1 max: 95.3 cm/sec SV(LVOT): 74.8 ml Ao max P.4 mmHg LV V1 max P.6 mmHg Ao V2 mean: 169.3 cm/sec LV V1 mean P.0 mmHg Ao mean P.8 mmHg LV V1 mean: 67.5 cm/sec Ao V2 VTI: 56.8 cm LV V1 VTI: 24.5 cm KARINE(I,D): 1.3 cm2 KARINE(V,D): 1.2 cm2 PA V2 max: 99.3 cm/sec TR max vaughn: 311.7 cm/sec TR max P.9 mmHg ECHO/Echo Complete Interpretation Summary Left ventricular systolic function is normal. The estimated ejection fraction is 60 %. The left atrium is moderately enlarged. The right atrium is moderately enlarged. There is moderate mitral annular calcification. Extension the mitral annular calcification on the base of the posterior mitral valve leaflet. Anterior leaflet diffuse mitral valve thickening. Mild (1+) eccentric mitral valve insufficiency. Mild to moderate (1-2+) tricuspid valve insufficiency. Stable appearing bioprosthetic aortic valve apparatus. Mild (1+) pulmonic valve insufficiency. Right ventricular systolic pressure estimated to be 42 mmHg. Transmitral diastolic flow velocities suggest diastolic dysfunction (pseudonorm al pattern). Ordering Physician: Roberto Carlos Grider Referring Physician: ROBERTO CARLOS HERRON Performed By: Domi Hale RDCS
== END ==
PROVIDERS: PCP Family Medicine; Referring Provider Internal Medicine Cardiovascular Disease; Visit Provider Internal Medicine Cardiovascular Disease
DX: R06.00 Dyspnea, unspecified (principal); I49.3 Ventricular premature depolarization; I25.10 Atherosclerotic heart disease of native coronary artery without angina pectoris; I10 Essential (primary) hypertension; E78.5 Hyperlipidemia, unspecified; Z95.3 Presence of xenogenic heart valve; Z95.1 Presence of aortocoronary bypass graft
CPT/HCPCS: 93306

== ENCOUNTER → 2020-10-18 10:20 | Outpatient (CLI) | payer MEDICARE, BC, SELFPAY ==
[2020-02-02 08:45] VITALS: BMI 27.9
[2020-09-17 15:58] VITALS: BMI 28.2
== END ==
PROVIDERS: PCP Family Medicine; Referring Provider Internal Medicine Cardiovascular Disease; Visit Provider Internal Medicine Cardiovascular Disease
DX: I49.3 Ventricular premature depolarization (principal); I25.10 Atherosclerotic heart disease of native coronary artery without angina pectoris; I10 Essential (primary) hypertension; E78.5 Hyperlipidemia, unspecified; Z95.3 Presence of xenogenic heart valve; Z95.1 Presence of aortocoronary bypass graft
CPT/HCPCS: 93225; 93226

== ENCOUNTER → 2021-01-07 08:10 | Outpatient (CLI) | payer MEDICARE, BC, SELFPAY ==
[2020-02-02 08:45] VITALS: BMI 27.9
[2021-01-07 09:57] LABS: Absolute Lymphocyte Count 1.22 X10^3/uL (0.83-4.51); Absolute Neutrophil Count 4.5 X10^3/uL (2.0-7.7); Basophil# 0.05 X10^3/uL; Basophil% 0.8 % (0-1); Hematocrit 40.6 % (40-54); Hemoglobin 12.6 g/dL (13.0-16.5); Lymphocyte # 1.22 X10^3/ul (0.83-4.51); Lymphocyte % 18.9 % (19-41); Mean Corpuscular Hgb 26.6 pg (27.0-32.0); Mean Corpuscular Volume 85.7 fL (80-94); Monocyte# 0.71 X10^3/uL; NRBC Flagged by Analyzer 0 % (0-5); Neutrophil # 4.45 X10^3/uL (2.7-7.7); Neutrophil % 69.1 % (47-70); Platelet Count 209 K/mm3 (150-450); RBC Distribution Width CV 14.1 % (11.6-14.6); RBC Distribution Width SD 44.3 fl (35.1-43.9); Red Blood Count 4.74 M/mm3 (4.6-6.2); White Blood Count 6.4 K/mm3 (4.4-11.0)
[2021-01-07 10:55] LABS: Anion Gap 7 (5-15); BUN 17 mg/dL (7-18); BUN/Creat Ratio 15.6 RATIO (10-20); Calcium,Total 9.1 mg/dL (8.5-10.1); Chloride 103 mmol/L (98-107); Cholesterol 153 mg/dL (200); Creatinine, Serum 1.09 mg/dL (0.70-1.30); EST Glomerular Filtration Rate 70 mL/min (>60); Est Glom Filt Rate - Afr Amer 84 mL/min (>60); Glucose 99 mg/dL (74-106); High Density Lipoprotein 61 mg/dL; PSA,Total - Annual Screen 4.68 ng/mL (0.00-4.00); Potassium 4.2 mmol/L (3.5-5.1); Sodium Level 136 mmol/L (136-145); Thyroid Stim Hormone (TSH) 1.78 uIU/mL (0.358-3.74); Triglycerides 91 mg/dL; Very Low Density Lipoprotein 18 mg/dL (5-40)
== END ==
PROVIDERS: PCP Family Medicine; Referring Provider Family Medicine; Visit Provider Family Medicine
DX: I10 Essential (primary) hypertension (principal); E78.5 Hyperlipidemia, unspecified; Z12.5 Encounter for screening for malignant neoplasm of prostate
CPT/HCPCS: 36415; 80048; 80061; 84153; 84443; 85025; G0103

== ENCOUNTER → 2021-07-10 | Outpatient (CLI) | payer MEDICARE, BC, SELFPAY ==
[2020-02-02 08:45] VITALS: BMI 27.9
[2021-07-10 10:48] LABS: ALB/GLOB Ratio 1.2 RATIO (0.9-2.4); AST(SGOT) 17 U/L (15-37); Alanine Aminotransfer ALT/SGPT 25 U/L (16-61); Albumin, Serum 3.7 g/dL (3.2-5.0); Alkaline Phosphatase 61 U/L (45-117); Anion Gap 7 (5-15); BUN 13 mg/dL (7-18); BUN/Creat Ratio 13.5 RATIO (10-20); Calcium,Total 8.8 mg/dL (8.5-10.1); Chloride 105 mmol/L (98-107); Cholesterol 142 mg/dL (200); Creatinine, Serum 0.96 mg/dL (0.70-1.30); EST Glomerular Filtration Rate 80 mL/min (>60); Est Glom Filt Rate - Afr Amer 97 mL/min (>60); Globulin 3.1 g/dL (2.2-4.2); Glucose 100 mg/dL (74-106); High Density Lipoprotein 54 mg/dL; Potassium 4.4 mmol/L (3.5-5.1); Protein, Total 6.8 g/dL (6.4-8.2); Sodium Level 138 mmol/L (136-145); Triglycerides 97 mg/dL; Very Low Density Lipoprotein 19 mg/dL (5-40)
== END | disposition home or self-care (01) ==
LOC: MFPLAB 09:06
PROVIDERS: PCP Family Medicine; Visit Provider Family Medicine
DX: I10 Essential (primary) hypertension (principal); E78.5 Hyperlipidemia, unspecified
CPT/HCPCS: 36415; 80053; 80061

== ENCOUNTER → 2022-01-07 | Outpatient (CLI) | payer MEDICARE, BC, SELFPAY ==
[2020-02-02 08:45] VITALS: BMI 27.9
[2022-01-07 11:10] LABS: AST(SGOT) 17 U/L (15-37); Alanine Aminotransfer ALT/SGPT 25 U/L (16-61); Albumin, Serum 3.6 g/dL (3.2-5.0); Alkaline Phosphatase 65 U/L (45-117); Anion Gap 5 (5-15); BUN 13 mg/dL (7-18); BUN/Creat Ratio 13.1 RATIO (10-20); Calcium,Total 8.9 mg/dL (8.5-10.1); Chloride 105 mmol/L (98-107); Cholesterol 149 mg/dL (200); Creatinine, Serum 0.99 mg/dL (0.70-1.30); EST Glomerular Filtration Rate 77 mL/min (>60); Est Glom Filt Rate - Afr Amer 94 mL/min (>60); Globulin 3.7 g/dL (2.2-4.2); Glucose 101 mg/dL (74-106); High Density Lipoprotein 59 mg/dL; PSA,Total - Annual Screen 5.93 ng/mL (0.00-4.00); Potassium 4.5 mmol/L (3.5-5.1); Protein, Total 7.3 g/dL (6.4-8.2); Sodium Level 137 mmol/L (136-145); Triglycerides 107 mg/dL; Very Low Density Lipoprotein 21 mg/dL (5-40)
== END | disposition home or self-care (01) ==
PROVIDERS: PCP Family Medicine; Referring Provider Family Medicine; Visit Provider Family Medicine
DX: N40.0 Benign prostatic hyperplasia without lower urinary tract symptoms (principal); I10 Essential (primary) hypertension; Z12.5 Encounter for screening for malignant neoplasm of prostate
CPT/HCPCS: 36415; 80053; 80061; 84153; G0103

== ENCOUNTER → 2022-07-07 | Outpatient (CLI) | payer MEDICARE, SELFPAY ==
[2020-02-02 08:45] VITALS: BMI 27.9
[2022-07-07 10:41] LABS: Anion Gap 7 (5-15); BUN 15 mg/dL (7-18); BUN/Creat Ratio 15.4 RATIO (10-20); Calcium,Total 8.9 mg/dL (8.5-10.1); Chloride 104 mmol/L (98-107); Creatinine, Serum 0.97 mg/dL (0.70-1.30); EST Glomerular Filtration Rate 79 mL/min (>60); Est Glom Filt Rate - Afr Amer 96 mL/min (>60); Glucose 103 mg/dL (74-106); PSA,Total- Diagnostic 8.01 ng/mL (0.0-4.0); Potassium 3.9 mmol/L (3.5-5.1); Sodium Level 134 mmol/L (136-145)
== END | disposition home or self-care (01) ==
PROVIDERS: PCP Family Medicine; Referring Provider Family Medicine; Visit Provider Family Medicine
DX: I10 Essential (primary) hypertension (principal); R97.20 Elevated prostate specific antigen [PSA]
CPT/HCPCS: 36415; 80048; 84153

== ENCOUNTER → 2022-09-02 | Outpatient (CLI) | payer MEDICARE, SELFPAY ==
[2020-02-02 08:45] VITALS: BMI 27.9
[2022-09-02 10:12] LABS: PSA,Total- Diagnostic 5.82 ng/mL (0.0-4.0)
== END | disposition home or self-care (01) ==
LOC: MTLAB 08:23
PROVIDERS: PCP Family Medicine; Referring Provider Registered Nurse; Visit Provider Registered Nurse
DX: R97.20 Elevated prostate specific antigen [PSA] (principal)
CPT/HCPCS: 36415; 84153

== ENCOUNTER → 2023-07-19 | Outpatient (CLI) | payer OTHER, SELFPAY ==
[2020-02-02 08:45] VITALS: BMI 27.9
[2023-07-19 10:23] LABS: Absolute Lymphocyte Count 1.04 X10^3/uL (0.83-4.51); Absolute Neutrophil Count 3.5 X10^3/uL (2.0-7.7); Basophil# 0.05 X10^3/uL; Basophil% 0.9 % (0-1); Eosinophil# 0.17 X10^3/uL; Eosinophils% 3.2 % (0-5); Hematocrit 42.4 % (40-54); Hemoglobin 13.6 g/dL (13.0-16.5); Lymphocyte # 1.04 X10^3/ul (0.83-4.51); Lymphocyte % 19.6 % (19-41); Mean Corp Hgb Conc 32.1 g/dL (32-36); Mean Corpuscular Hgb 28.5 pg (27.0-32.0); Mean Corpuscular Volume 88.9 fL (80-94); Monocyte# 0.54 X10^3/uL; Monocyte% 10.2 % (0-10); NRBC Flagged by Analyzer 0 % (0-5); Neutrophil # 3.48 X10^3/uL (2.7-7.7); Neutrophil % 65.7 % (47-70); Platelet Count 200 K/mm3 (150-450); RBC Distribution Width CV 13.5 % (11.6-14.6); RBC Distribution Width SD 43.9 fl (35.1-43.9); Red Blood Count 4.77 M/mm3 (4.6-6.2); White Blood Count 5.3 K/mm3 (4.4-11.0)
[2023-07-19 11:12] LABS: AST(SGOT) 14 U/L (15-37); Alanine Aminotransfer ALT/SGPT 24 U/L (16-61); Albumin, Serum 3.5 g/dL (3.2-5.0); Alkaline Phosphatase 60 U/L (45-117); Anion Gap 3 (5-15); BUN 13 mg/dL (7-18); BUN/Creat Ratio 13.9 RATIO (10-20); Calcium,Total 8.9 mg/dL (8.5-10.1); Chloride 106 mmol/L (98-107); Cholesterol 146 mg/dL (200); Creatinine, Serum 0.93 mg/dL (0.70-1.30); EST Glomerular Filtration Rate 83 mL/min (>60); Est Glom Filt Rate - Afr Amer 100 mL/min (>60); Globulin 3.5 g/dL (2.2-4.2); Glucose 101 mg/dL (74-106); High Density Lipoprotein 57 mg/dL; Potassium 4.4 mmol/L (3.5-5.1); Sodium Level 137 mmol/L (136-145); Triglycerides 91 mg/dL; Very Low Density Lipoprotein 18 mg/dL (5-40)
== END | disposition home or self-care (01) ==
LOC: MFPLAB 08:56
PROVIDERS: PCP Family Medicine; Visit Provider Family Medicine
DX: E78.5 Hyperlipidemia, unspecified (principal); D64.9 Anemia, unspecified
CPT/HCPCS: 36415; 80053; 80061; 85025

== ENCOUNTER → 2023-07-21 | Outpatient (CLI) | payer MEDICARE, SELFPAY ==
[2020-02-02 08:45] VITALS: BMI 27.9
--- NOTE | 2023-07-21 15:21 | RAD_ITS ---
STUDY: X-RAY - LEFT SHOULDER REASON FOR EXAM: Male, 78 years old. PAIN TECHNIQUE: 4 views of the left shoulder. COMPARISON: None. FINDINGS: Normal glenohumeral articulation. Normal acromioclavicular joint. Normal acromion. Normal humeral head and visualized proximal humerus. The soft tissue structures are unremarkable. There is no demonstrated fracture. Normal visualized pulmonary apex. RAD/Shoulder min 2 Views IMPRESSION: Normal x-ray examination of the left shoulder. Electronically Signed: Finesse Mcguire MD at 15:50 EDT ,
== END | disposition home or self-care (01) ==
PROVIDERS: PCP Family Medicine; Referring Provider Family Medicine; Visit Provider Family Medicine
DX: M25.512 Pain in left shoulder (principal)
CPT/HCPCS: 73030

== ENCOUNTER → 2023-07-22 | Outpatient (CLI) | payer MEDICARE, SELFPAY ==
[2020-02-02 08:45] VITALS: BMI 27.9
[2023-07-22 10:54] LABS: Anion Gap 6 (5-15); BUN 13 mg/dL (7-18); BUN/Creat Ratio 13.8 RATIO (10-20); Calcium,Total 9.1 mg/dL (8.5-10.1); Chloride 108 mmol/L (98-107); Cholesterol 148 mg/dL (200); Creatinine, Serum 0.94 mg/dL (0.70-1.30); EST Glomerular Filtration Rate 82 mL/min (>60); Est Glom Filt Rate - Afr Amer 99 mL/min (>60); Glucose 99 mg/dL (74-106); High Density Lipoprotein 57 mg/dL; Potassium 4.1 mmol/L (3.5-5.1); Sodium Level 137 mmol/L (136-145); Triglycerides 97 mg/dL; Very Low Density Lipoprotein 19 mg/dL (5-40)
== END | disposition home or self-care (01) ==
PROVIDERS: PCP Family Medicine; Referring Provider Family Medicine; Visit Provider Family Medicine
DX: I10 Essential (primary) hypertension (principal)
CPT/HCPCS: 36415; 80048; 80061

== ENCOUNTER → 2023-08-23 | Outpatient (CLI) | payer MEDICARE, SELFPAY ==
[2020-02-02 08:45] VITALS: BMI 27.9
--- NOTE | 2023-08-23 09:44 | ECHOD_ITS ---
Reason For Study: Afib, xenogenic heart valve Procedure This was a 2D Doppler, Color Flow transthoracic echocardiogram. Exam performed in department. Left Ventricle Normal LV size. Mild concentric left ventricular hypertrophy. The left ventricular ejection fraction is 60 %. Stage 2 diastolic dysfunction. Right Ventricle Normal right ventricle. Atria There is moderate biatrial dilatation. Mitral Valve Moderate mitral annular calcification. Mild-Moderate (1-2+) mitral valve insufficiency. Tricuspid Valve Moderately severe (3+) tricuspid valve insufficiency. Right ventricular systolic pressure estimated to be 45 mmHg. 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 Mean peak gradient 6 mmHg. Pulmonic Valve Moderate (2+) pulmonic valve insufficiency. Great Vessels Normal sized aortic root. Pericardium/Pleural No pericardial effusion. MMode/2D Measurements & Calculations LVIDd: 4.8 cm IVSd: 1.7 cm LVOT diam: 2.0 cm LVIDs: 3.6 cm LVPWd: 1.3 cm LVOT area: 3.0 cm2 RVDd: 4.4 cm FS: 25.4 % Ao root diam: 3.3 cm LAV(MOD-bp): 108.1 ml LVAd ap4: 31.1 cm2 LA dimension: 4.9 cm LAV(MOD-bp) Indexed: 50.1 ml/m2 LVLd ap4: 7.7 cm LAV(MOD-sp2): 103.4 ml EDV(MOD-sp4): 107.9 ml LAV(MOD-sp4): 108.1 ml EDV(sp4-el): 106.5 ml LVAs ap4: 18.3 cm2 LVLs ap4: 6.6 cm ESV(MOD-sp4): 43.8 ml ESV(sp4-el): 43.5 ml EF(MOD-sp4): 59.4 % EF(sp4-el): 59.2 % SV(MOD-sp4): 64.1 ml SV(sp4-el): 63.1 ml LA A4 area: 29.1 cm2 RA A4 area: 25.4 cm2 TAPSE: 2.0 cm Time Measurements MV dec time: 0.30 sec Doppler Measurements & Calculations MV E max vaughn: 93.7 cm/sec Lat Peak E' Vaughn: 7.6 cm/sec Med Peak E' Vaughn: 6.6 cm/sec MV A max vaughn: 95.6 cm/sec E/E' lat: 12.4 E/E' med: 14.3 MV E/A: 0.98 MV V2 max: 114.3 cm/sec MV P1/2t max vaughn: 111.2 cm/sec Ao V2 max: 172.3 cm/sec MV max P.2 mmHg MV P1/2t: 109.2 msec Ao max P.9 mmHg MV V2 mean: 69.0 cm/sec Ao V2 mean: 118.3 cm/sec MV mean P.2 mmHg MV dec slope: 298.4 cm/sec2 Ao mean P.4 mmHg MV V2 VTI: 43.5 cm MVA(P1/2t): 2.0 cm2 Ao V2 VTI: 39.1 cm AV (velocity ratio): 0.55 MVA(VTI): 1.5 cm2 KARINE(I,D): 1.7 cm2 KARINE(V,D): 1.6 cm2 LV V1 max: 90.2 cm/sec MR max vaughn: 532.6 cm/sec SV(LVOT): 65.0 ml LV V1 max P.3 mmHg MR max P.5 mmHg LV V1 mean P.9 mmHg LV V1 mean: 64.5 cm/sec LV V1 VTI: 21.6 cm PA V2 max: 100.9 cm/sec PI dec slope: 84.3 cm/sec2 TR max vaughn: 275.2 cm/sec PA max PG (full): 2.6 mmHg TR max P.3 mmHg PA V2 mean: 61.0 cm/sec PA mean PG (full): 0.85 mmHg ECHO/Echo Complete Interpretation Summary Mild concentric left ventricular hypertrophy. The left ventricular ejection fraction is 60 %. Stage 2 diastolic dysfunction. Mild-Moderate (1-2+) mitral valve insufficiency. Moderately severe (3+) tricuspid valve insufficiency. Right ventricular systolic pressure estimated to be 45 mmHg. 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 Mean peak gradie nt 6 mmHg. Moderate (2+) pulmonic valve insufficiency. Ordering Physician: Juliocesar Copeland Referring Physician: Juliocesar Copeland Performed By: Warren Singh RCS
== END | disposition home or self-care (01) ==
LOC: CVS 09:43
PROVIDERS: PCP Family Medicine; Referring Provider Internal Medicine Cardiovascular Disease; Visit Provider Internal Medicine Cardiovascular Disease
DX: I48.92 Unspecified atrial flutter (principal); Z95.3 Presence of xenogenic heart valve
CPT/HCPCS: 93306

== ENCOUNTER → 2023-09-06 | Outpatient (CLI) | payer MEDICARE, SELFPAY ==
[2020-02-02 08:45] VITALS: BMI 27.9
[2023-09-06 11:18] LABS: PSA,Total- Diagnostic 7.31 ng/mL (0.0-4.0)
== END | disposition home or self-care (01) ==
PROVIDERS: PCP Family Medicine; Referring Provider Urology; Visit Provider Urology
DX: N40.1 Benign prostatic hyperplasia with lower urinary tract symptoms (principal)
CPT/HCPCS: 36415; 84153

== ENCOUNTER → 2024-01-19 | Outpatient (CLI) | payer MEDICARE, SELFPAY ==
[2020-02-02 08:45] VITALS: BMI 27.9
[2024-01-19 10:40] LABS: ALB/GLOB Ratio 0.9 RATIO (0.9-2.4); AST(SGOT) 18 U/L (15-37); Alanine Aminotransfer ALT/SGPT 26 U/L (16-61); Albumin, Serum 3.5 g/dL (3.2-5.0); Alkaline Phosphatase 58 U/L (45-117); Anion Gap 4 (5-15); BUN 14 mg/dL (7-18); Chloride 106 mmol/L (98-107); Cholesterol 152 mg/dL (200); Creatinine, Serum 0.93 mg/dL (0.70-1.30); EST Glomerular Filtration Rate 83 mL/min (>60); Est Glom Filt Rate - Afr Amer 101 mL/min (>60); Globulin 3.7 g/dL (2.2-4.2); Glucose 99 mg/dL (74-106); High Density Lipoprotein 64 mg/dL; Potassium 4.2 mmol/L (3.5-5.1); Protein, Total 7.2 g/dL (6.4-8.2); Sodium Level 137 mmol/L (136-145); Triglycerides 128 mg/dL; Very Low Density Lipoprotein 26 mg/dL (5-40)
== END | disposition home or self-care (01) ==
LOC: MTLAB 08:34
PROVIDERS: PCP Family Medicine; Referring Provider Family Medicine; Visit Provider Family Medicine
DX: I10 Essential (primary) hypertension (principal)
CPT/HCPCS: 36415; 80053; 80061

== ENCOUNTER → 2024-03-13 | Outpatient (CLI) | payer MEDICARE, SELFPAY ==
[2020-02-02 08:45] VITALS: BMI 27.9
[2024-03-14 13:07] LABS: PSA, Free 1.09 ng/mL; PSA, Free % 15.1 % (.)
== END | disposition home or self-care (01) ==
LOC: LAB 09:33
PROVIDERS: PCP Family Medicine; Referring Provider Nurse Practitioner; Visit Provider Nurse Practitioner
DX: R97.20 Elevated prostate specific antigen [PSA] (principal)
CPT/HCPCS: 36415; 84153; 84154

== ENCOUNTER → 2024-05-01 | Outpatient (CLI) | payer MEDICARE, SELFPAY ==
[2020-02-02 08:45] VITALS: BMI 27.9
--- NOTE | 2024-05-01 11:35 | STRESSREP ---
Stress Test Report Date: 05/01/2024 Procedure: Exercise tolerance test/imaging study Indications: Chest pain Consent: Per the patient Procedure: The patient exercised on a Vu protocol for 6 minutes achieving a peak heart rate of 129 bpm (92% predicted maximal heart rate) with a peak blood pressure 184/74 mmHg and a peak MET capacity of 7.0 METs. The baseline ECG demonstrated sinus rhythm with frequent PACs and occasional PVC. The peak exercise ECG demonstrated frequent PACs with occasional runs and frequent PVCs.. The functional capacity was considered good for age. There was no complaint of chest discomfort during exercise or recovery. The examination was discontinued secondary to target heart rate being achieved and dyspnea. The patient was injected with 13.0 mCi of technetium 99m Cardiolite and subsequently rest SPECT Cardiolite nuclear imaging was obtained in the horizontal long, vertical long, and short axis views. Post-exercise, the patient was injected with 43.9 mCi of technetium 99m Cardiolite and subsequently stress SPECT Cardiolite nuclear imaging was obtained in the horizontal long, vertical long, and short axis views. A gated Cardiolite study at peak stress was obtained. Rest and stress SPECT Cardiolite nuclear imaging status post realignment, normalization, and attenuation correction, demonstrates the appearance of relative uniform tracer uptake and myocardial perfusion appearing within normal limits. There is end systolic thickening and brightening. The gated Cardiolite study demonstrates myocardial thickening and inward wall motion. The reported LVEF is 54%. Impression: 1. Technically adequate (percent predicted maximal heart rate greater than 85%) exercise tolerance test 2. Peak exercise ECG with no ischemic changes 3. Frequent PVCs including few runs and frequent PVCs noted with exercise 4. Rest and stress SPECT Cardiolite nuclear imaging demonstrate relative uniform tracer uptake and myocardial perfusion appearing within normal limits. 5. The gated Cardiolite study reports an LVEF of 54%. This note was generated with [employer] software. It may contain incorrect words, spelling, and punctuation that were not noted in checking the note before signing.
== END | disposition home or self-care (01) ==
LOC: CVS 06:54
PROVIDERS: PCP Family Medicine; Referring Provider Nurse Practitioner Family; Visit Provider Nurse Practitioner Family
DX: I47.29 Other ventricular tachycardia (principal); I25.10 Atherosclerotic heart disease of native coronary artery without angina pectoris; Z95.1 Presence of aortocoronary bypass graft
CPT/HCPCS: 78452; 93017; A9500; A4216

== ENCOUNTER → 2024-07-18 | Outpatient (CLI) | payer MEDICARE, SELFPAY ==
[2020-02-02 08:45] VITALS: BMI 27.9
[2024-07-18 12:58] LABS: ALB/GLOB Ratio 1.4 RATIO (0.9-2.4); AST(SGOT) 21 U/L (<=37); Alanine Aminotransfer ALT/SGPT 17 U/L (<=46); Alkaline Phosphatase 57 U/L (40-129); Anion Gap 10 (5-15); BUN 15 mg/dL (4-19); BUN/Creat Ratio 16.6 RATIO (10-20); Calcium,Total 8.9 mg/dL (7.6-11.0); Carbon Dioxide 21.1 mmol/L (21.0-32.0); Chloride 103 mmol/L (98-108); Cholesterol 129 mg/dL (<=200); Creatinine, Serum 0.88 mg/dL (0.70-1.20); EST Glomerular Filtration Rate 87 (>60); Globulin 2.8 g/dL (2.2-4.2); Glucose 102 mg/dL (70-99); High Density Lipoprotein 50 mg/dL; Low Density Lipoprotein Calc. 62 mg/dL; Magnesium 2.2 mg/dL (1.5-2.2); PSA,Total- Diagnostic 6.22 ng/mL (0.00-4.00); Protein, Total 6.8 g/dL (5.9-8.4); Sodium Level 134 mmol/L (133-145); Total Bilirubin 0.54 mg/dL (0.00-1.30); Triglycerides 85 mg/dL; Very Low Density Lipoprotein 17 mg/dL (5-40); cholesterol:hdl ratio screen 2.57
[2024-07-18 20:10] LABS: Absolute Lymphocyte Count 0.99 X10^3/uL (0.83-4.51); Absolute Neutrophil Count 3.8 X10^3/uL (2.0-7.7); Basophil# 0.04 X10^3/uL; Basophil% 0.7 % (0-1); Hematocrit 39.9 % (40-54); Hemoglobin 13.4 g/dL (13.0-16.5); Lymphocyte # 0.99 X10^3/ul (0.83-4.51); Lymphocyte % 18.3 % (19-41); Mean Corp Hgb Conc 33.6 g/dL (32-36); Mean Corpuscular Volume 89.3 fL (80-94); Mean Platelet Vol. 11.7 fl (6.2-12.0); Monocyte# 0.56 X10^3/uL; Monocyte% 10.4 % (0-10); NRBC Flagged by Analyzer 0 % (0-5); Neutrophil # 3.81 X10^3/uL (2.7-7.7); Neutrophil % 70.4 % (47-70); Platelet Count 164 K/mm3 (150-450); RBC Distribution Width CV 12.8 % (11.6-14.6); RBC Distribution Width SD 41.8 fl (35.1-43.9); Red Blood Count 4.47 M/mm3 (4.6-6.2); White Blood Count 5.4 K/mm3 (4.4-11.0)
== END | disposition home or self-care (01) ==
LOC: MTLAB 10:03
PROVIDERS: PCP Family Medicine; Referring Provider Family Medicine; Visit Provider Family Medicine
DX: E78.5 Hyperlipidemia, unspecified (principal); I48.0 Paroxysmal atrial fibrillation; I47.29 Other ventricular tachycardia; R97.20 Elevated prostate specific antigen [PSA]; R06.00 Dyspnea, unspecified; I25.10 Atherosclerotic heart disease of native coronary artery without angina pectoris; I35.0 Nonrheumatic aortic (valve) stenosis; I10 Essential (primary) hypertension
CPT/HCPCS: 36415; 80053; 80061; 83735; 84153; 84439; 84443; 85025

== ENCOUNTER → 2024-09-04 | Outpatient (CLI) | payer MEDICARE, SELFPAY ==
[2020-02-02 08:45] VITALS: BMI 27.9
[2024-09-04 13:20] LABS: PSA,Total- Diagnostic 6.88 ng/mL (0.00-4.00)
== END | disposition home or self-care (01) ==
LOC: MTLAB 09:41
PROVIDERS: PCP Family Medicine; Referring Provider Urology; Visit Provider Urology
DX: N40.1 Benign prostatic hyperplasia with lower urinary tract symptoms (principal)
CPT/HCPCS: 36415; 84153

== ENCOUNTER → 2024-10-03 | Outpatient (CLI) | payer MEDICARE, SELFPAY ==
[2020-02-02 08:45] VITALS: BMI 27.9
--- OUTSIDE RECORDS SUMMARY | 2024-10-03 17:32 | XMS RPT_ITS | CCD ---
Author Organization [facility]iniSyva Care Team Providers Care Electrical Prospecting Engineer Name Role Phone Dr. Roberto Carlos Herron Primary Care Provider [phone] Roberto Carlos Herron Referring Provider Edu GRAILS WEB APPLICATION DEVELOPER, GRAILS WEB APPLICATION DEVELOPER-C Melisa Attending Provider Dr. Roberto Carlos Herron Primary Care Provider Germaine, Dr. Azevedo Referring Provider Dr. Jamal Kothari Attending Provider [phone]([facility])[phone] Germaine EVANS, Dr. Azevedo Primary Care Provider [phone] Germaine EVANS, Dr. Azevedo Attending Provider Germaine EVANS, Dr. Azevedo Referring Provider [phone] Min EVANS, Dr. Gandara Attending Provider Lexi Montes Attending Provider Lexi Montes Referring Provider Dr. Juliocesar Copeland MD Referring Provider Roof GRAILS WEB APPLICATION DEVELOPER-C, Kev H Attending Provider Roof GRAILS WEB APPLICATION DEVELOPER-C, Kev H Referring Provider Roof GRAILS WEB APPLICATION DEVELOPER-C, Kev H Other Provider Pepito EVANS, Dr. Stapleton Attending Provider Germaine EVANS, Dr. Azevedo Primary Care Provider [phone] Germaine EVANS, Dr. Azevedo Attending Provider Germaine EVANS, Dr. Azevedo Referring Provider Gilmer EVANS, Dr. Uvaldo Young Attending Provider Gilmer EVANS, Dr. Uvaldo Young Referring Provider Joshua Galloway Attending Provider Germaine, Roberto Carlos Primary Care Unavailable Chesterfield, Lexi Attending Unavailable Chesterfield, Lexi Referring Unavailable Herron, Roberto Carlos Primary Care Unavailable Roof GRAILS WEB APPLICATION DEVELOPER, Kev Avilez Attending Unavailable Roof GRAILS WEB APPLICATION DEVELOPER, Kev Avilez Referring Unavailable Min, Juliocesar Attending Unavailable Min, Juliocesar Referring Unavailable Herron, Roberto Carlos Primary Care Unavailable Herron, Roberto Carlos Primary Care Unavailable Roof GRAILS WEB APPLICATION DEVELOPER, Kev Avilez Consulting Unavailable Roof GRAILS WEB APPLICATION DEVELOPER, Kev Avilez Referring Unavailable Pieter Beyer Attending Unavailable Herron, Roberto Carlos Referring Unavailable Herron, Roberto Carlos Primary Care Unavailable Joshua James Attending Unavailable Herron, Roberto Carlos Attending Unavailable Herron, Roberto Carlos Referring Unavailable Herron, Roberto Carlos Primary Care Unavailable Herron, Roberto Carlos Primary Care Unavailable Uvaldo Galloway Attending Unavailable Uvaldo Galloway Referring Unavailable Herron, Roberto Carlos Primary Care Unavailable Joshua James Attending Unavailable Joshua James Referring Unavailable Min, Juliocesar Attending Unavailable Herron, Roberto Carlos Primary Care Unavailable Herron, Roberto Carlos Referring Unavailable Min, Juliocesar Attending Unavailable Herron, Roberto Carlos Primary Care Unavailable Min, Juliocesar Referring Unavailable Herron, Roberto Carlos Primary Care Unavailable Herron, Roberto Carlos Attending Unavailable Germaine, Roberto Carlos Referring Unavailable Medications Current Medications Medication Drug Class(es) Dates Sig (Normalized) Sig (Original) apixaban 2.5 mg oral tablet (3 sources) Factor Xa Inhibitor Start: 07-28-2023 take 1 tablet by mouth twice daily Apixaban (Eliquis) 2.5 mg tablet Active 2.5 mg PO TWICE A DAY July 28, 2023 12:00am atorvastatin 10 mg oral tablet (7 sources) HMG-CoA Reductase Inhibitor Start: 08-15-2019 take 1 tablet by mouth at bedtime Atorvastatin 10 mg tablet Active 10 mg PO AT BEDTIME August 15, 2019 12:00am Multivitamin preparation (4 sources) Start: 11-16-2019 take 1 tablet by mouth once daily Multivitamin Active 1 TABLET PO DAILY November 16, 2019 9:33am Start: 11-16-2019 take 1 tablet by aide th once daily Multivitamin Active 1 TABLET PO DAILY November 16, 2019 12:00am Start: 11-16-2019 take 1 tablet by aide th once daily Multivitamin Active 1 TABLET PO DAILY November 15, 2019 11:00pm Multivitamin tablet (3 sources) Start: 11-16-2019 Multivitamin t ablet Active 1 {tbl} PO DAILY November 16, 2019 12:00am omeprazole 20 mg delayed release oral capsule (20 sources) Proton Pump Inhibitor Start: 11-16-2019 take 1 capsule by mouth once daily Omeprazole 20 mg capsule,delayed release(DR/EC) Active 20 mg PO DAILY November 16, 2019 9:33am Start: 08-22-2019 End: 11-16-2019 take 1 capsule by mouth twice daily Omeprazole 20 mg capsule,delayed release(DR/EC) Discontinued 20 mg PO TWICE A DAY August 22, 2019 2:47pm November 16, 2019 9:35am Start: 08-15-2019 End: 08-22-2019 take 1 capsule by mouth once daily Omeprazole 20 mg capsule,delayed release(DR/EC) Discontinued 20 mg PO DAILY August 15, 2019 12:00am August 22, 2019 2:48pm tamsulosin hydrochloride 0.4 mg oral capsule (6 sources) alpha-Adrenergic Jamar Start: 12-31-2021 take 1 capsule by mouth once daily Tamsulosin 0.4 mg capsule Active 0.4 mg PO DAILY December 31, 2021 12:00am Completed/Discontinued Medications Medication Drug Class(es) Dates Sig (Normalized) Sig (Original) 8 hr acetaminophen 650 mg extended release oral tablet (7 sources) Start: 10-12-2019 End: 09-17-2020 take 1 tablet by mouth every six hours as needed Acetaminophen 650 mg tablet extended release Discontinued 650 mg PO EVERY 6 HOURS as needed October 12, 2019 12:00am September 17, 2020 4:06pm amiodarone hydrochloride 200 mg oral tablet (20 sources) Antiarrhythmic Start: 12-27-2019 End: 09-17-2020 take 1 tablet by mouth once daily Amiodarone 200 mg tablet Discontinued 200 mg PO DAILY 90 3 September 09, 2020 4:57pm September 17, 2020 4:48pm Start: 10-12-2019 End: 11-16-2019 take 1 tablet by mouth once daily Amiodarone 200 mg tablet Discontinued 200 mg PO .COMPLEX October 12, 2019 12:00am November 16, 2019 9:34am 200 mg PO 2 tablets by mouth X 7 days until 10/12/19, then 1 tablet daily for 1 month; aspirin 81 mg delayed release oral tablet (14 sources) Platelet Aggregation Inhibitor, Nonsteroidal Anti-inflammatory Drug Start: 08-22-2019 End: 07-28-2023 take 1 tablet by mouth once daily Aspirin (Adult Aspirin Regimen) 81 mg tablet,delayed release (DR/EC) Discontinued 81 mg PO DAILY 30 August 22, 2019 3:01pm July 28, 2023 8:59am docusate sodium 50 mg / sennosides, custodial 8.6 mg oral tablet (7 sources) Start: 10-12-2019 End: 11-16-2019 Sennosides-Docusate Sodium (Senna-S) 8.6-50 mg tablet Discontinued 1 NMA PO TWICE A DAY as needed October 12, 2019 12:00am November 16, 2019 9:34am furosemide 20 mg oral tablet (7 sources) Loop Diuretic Start: 08-22-2019 End: 10-12-2019 take 1 tablet by mouth once daily Furosemide 20 mg tablet Discontinued 20 mg PO DAILY 30 August 22, 2019 12:00am October 12, 2019 6:35pm lisinopril 5 mg oral tablet (20 sources) Angiotensin Converting Enzyme Inhibitor Start: 12-31-2021 End: 07-25-2024 take 1 tablet by mouth once daily Lisinopril 5 mg tablet Discontinued 5 mg PO DAILY 90 September 13, 2023 11:59am July 25, 2024 8:42am Start: 02-16-2020 End: 12-31-2021 take 1 tablet by mouth once daily Lisinopril 10 mg tablet Discontinued 10 mg PO DAILY 90 3 November 10, 2021 1:10pm December 31, 2021 1:38pm magnesium oxide 400 mg oral tablet (7 sources) Start: 11-16-2019 End: 09-17-2020 take 1 tablet by mouth once daily Magnesium Oxide 400 mg (241.3 mg magnesium) tablet Discontinued 400 mg PO DAILY November 16, 2019 12:00am September 17, 2020 4:07pm 24 hr metoprolol succinate 50 mg extended release oral tablet (20 sources) beta-Adrenergic Jamar Start: 12-26-2020 End: 03-09-2022 take 1 tablet by mouth once daily Metoprolol Succinate 50 mg tablet extended release 24 hr Discontinued 50 mg PO DAILY 90 December 26, 2020 10:18am March 09, 2022 12:23pm Start: 09-17-2020 End: 12-26-2020 take 2 tablets by mouth once daily Metoprolol Succinate 100 mg tablet extended release 24 hr Discontinued 50 mg PO DAILY September 17, 2020 4:48pm December 26, 2020 10:18am Start: 09-17-2020 End: 12-26-2020 take 50 mg by mouth once daily Metoprolol Succinate Di scontinued 50 MG PO DAILY September 17, 2020 4:48pm December 26, 2020 10:18am Start: 11-16-2019 End: 09-17-2020 take 1 tablet by mouth once daily Metoprolol Succinate 100 mg tablet extended release 24 hr Discontinued 100 mg PO DAILY November 16, 2019 12:00am September 17, 2020 4:50pm Start: 10-12-2019 End: 11-16-2019 take 1 tablet by mouth twice daily Metoprolol Succinate 50 mg tablet extended release 24 hr Discontinued 50 mg PO TWICE A DAY October 12, 2019 12:00am November 16, 2019 9:32am Start: 08-15-2019 End: 10-12-2019 take 1 tablet by mouth once daily Metoprolol Succinate 100 mg tablet extended release 24 hr Discontinued 100 mg PO DAILY August 15, 2019 12:00am October 12, 2019 6:34pm warfarin sodium 2.5 mg oral tablet (7 sources) Vitamin K Antagonist Start: 10-12-2019 End: 11-16-2019 take 1 tablet by mouth once daily Warfarin 2.5 mg tablet Discontinued 2.5 mg PO DAILY October 12, 2019 12:00am November 16, 2019 9:34am find out who manages INR Problems Active Problems Problem Classification Problem Date Documented Date Episodic/Chronic Cardiac dysrhythmias (20 sources) Ventricular premature beats; Translations: [Ventricular premature depolarization] Onset: 05-02-2024 Chronic Comment on above: Per event monitor at 7:42PM; Coronary atherosclerosis and other heart disease (13 sources) Coronary atherosclerosis; Translations: [Atherosclerotic heart disease of [place] coronary artery without angina pectoris] Onset: 05-02-2024 Chronic Disorders of lipid metabolism (12 sources) Hyperlipidemia; Translations: [Hyperlipidemia, unspecified] Onset: 05-02-2024 Chronic Comment on above: Lipids are managed t hrough the primary service. Given his known atherosclerotic disease targeted LDL should be less than 70. Esophageal disorders (7 sources) Gastroesophageal reflux disease; Translations: [Gastro-esophageal reflux disease without esophagitis] 08-28-2019 Chronic Essential hypertension (12 sources) Essential hypertension; Translations: [Essential (primary) hypertension] Onset: 05-02-2024 Chronic Heart valve disorders (20 sources) History of aortic valve replacement; Translations: [Presence of xenogenic heart valve] Onset: 10-03-2019 Chronic Comment on above: SVG to OM1, Bioprost hetic AVR(Inspiris #25) per Dr. Griffin Messina @ [facility] 10/03/2019 patient denies any shortness of breath anginal symptoms syncope or near syncope. mild to mod (1-2+) p er echo 08/02/2019 mild (1+) insufficie ncy with calcification per echo 08/02 2019 Per echo 08/02/2019: Peak gradient 86 mmhg, mean gradient 52 mmhg, calculated valve area 0.5 cm2.Severe aortic valve calcification. Hyperplasia of prostate (1 source) Benign prostatic hyperplasia with lower urinary tract symptoms; Translations: [Benign prostatic hyperplasia with lower urinary tract symptoms] Onset: 09-07-2024 Chronic Other and ill-defined heart disease (7 sources) Cardiomegaly; Translations: [Severe left ventricular hypertrophy] 08-28-2019 Chronic Comment on above: Per echo 08/02/2019 Other lower respiratory disease (8 sources) Dyspnea on exertion; Translations: [Dyspnea, unspecified] 08-28-2019 Episodic Other lower respiratory disease (7 sources) Dyspnea; Translations: [Shortness of breath] 08-28-2019 Episodic Other lower respiratory disease (2 sources) Dyspnea, unspecified; Translations: [Dyspnea, unspecified] Onset: 09-13-2024 Episodic Pulmonary heart disease (10 sources) Secondary pulmonary hypertension; Translations: [Secondary pulmonary hypertension] Chronic Comment on above: RVSP 52 mmhg per ech o 08/02/2019 with , mitral and tricuspid insufficiency. Unclassified (2 sources) Other ventricular tachycardia; Translations: [Other ventricular tachycardia] Onset: 05-11-2024 Past or Other Problems Problem Classification Problem Date Documented Da te Episodic/Chronic Coronary atherosclerosis and other heart disease (1 source) Presence of aortocoronary bypass graft; Translations: [Presence of aortocoronary bypass graft] Onset: 05-11-2024 Episodic Other screening for suspected conditions (not mental disorders or infectious disease) (8 sources) Thallium stress test abnormal; Translations: [Abnormal result of other cardiovascular function study] Onset: 04-01-2024 08-28-2019 Episodic Comment on above: 08/04/2019 Results Test Name Value Interpretation Reference Range Facility Cardiology Visit Reporton Cardiology Visit Report [facility] [address] [place] [address] OFFICE VISIT Date of Service: 09/13/24 MR#: [id number] Acct: [id number] Name: MARIA TERESA TAVARES III Rep #: [id number] : 1945 Provider: JAVIER Rocha Age/Sex: 79/M Location[place] [facility] [place] Status: Signed Agree with assessment and plan as outlined. HPI HPI History of Present Illness Details: Maria Teresa Tavares is an 79-year-old male who presents to the office today for follow-up for monitoring his cardiovascular health. He has a history of coronary artery disease status post single vessel CABG with SVG to the OM and aortic valve stenosis with aortic valve replacement with a #25 InspirEase bioprosthetic aortic valve 09/01/2019 at [facility], cardiac ectopy with PACs and PVCs, hyperlipidemia and hypertension. In June 2023, he was diagnosed with paroxysmal atrial fibrillation in his primary care physician's office. He was initiated on anticoagulation. Echocardiogram in July 2023 demonstrated mild LVH, an ejection fraction of 60%, mild???moderate mitral insufficiency, moderately severe tricuspid insufficiency, RVSP 45 mmHg, bioprosthetic aortic valve functioning normal. Upon presentation today, he reports ongoing shortness of breath. He has been walking about 3 times per week. He notices SOB when he first starts walking (starts uphill) that then levels out and seems to not be noticed. His SOB is unchanged from prior. Further ROS below. Intake Vital Signs 03/13/24 08:48 09/13/24 07:16 09/13/24 09:35 Height 6 ft 6 ft Weight: 221 lb BMI 29.9 BP 163/96 H 148/82 H Blood Pressure Location Lt brachial Lt brachial Position Sitting Sitting Respiration 18 Pulse 55 L Pulse Source Monitor Pulse Oximetry (%) 99 Intake Visit Reasons: 6 M FU Shipper And Receiving Required: No Is patient in pain?: No Allergies No Known Allergies Allergy (Verified 09/13/24 08:52) Medications ???Medication ???Instructions ???Recorded ???Confirmed ???Type atorvastatin 10 mg tablet 10 mg PO QHS 08/15/19 09/13/24 His tory multivitamin 1 tab PO DAILY 11/16/19 09/13/24 H istory omeprazole 20 mg capsule,delayed 20 mg PO DAILY 11/16/19 09/13/24 H istory release tamsulosin 0.4 mg capsule 0.4 mg PO DAILY 12/31/21 09/13/24 History metoprolol succinate 50 mg 50 mg PO DAILY #90 tabs 03/09/22 0 09/13/24 Rx tablet,extended release 24 hr apixaban 2.5 mg tablet (Eliquis) 2.5 mg PO BID 07/28/23 09/13/24 Hi story lisinopril 5 mg tablet 5 mg PO DAILY #90 tabs 07/25/24 Rx Ejection fraction %: 60 Have you fallen in the past year?: No PFSH Medical History Atrial fibrillation Ventricular ectopy Premature ventricular contraction Atherosclerotic heart disease of [place] coronary artery without angina pectoris Nonrheumatic aortic (valve) stenosis Shortness of breath Abnormal nuclear stress test Secondary pulmonary hypertension Nonrheumatic tricuspid (valve) insufficiency Nonrheumatic mitral (valve) insufficiency Severe aortic stenosis Severe left ventricular hypertrophy Dyspnea on exertion Hiatal hernia BPH (benign prostatic hyperplasia) Essential hypertension Hyperlipidemia Greene's esophagus with esophagitis GERD (gastroesophageal reflux disease) Surgical History S/P aortic valve replacement with bioprosthetic valve (10/03/19) 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) History of right and left heart catheterization (08/28/19) Family History Other CAD (coronary artery disease) Diabetes Hypertension Social History Smoking Status: Former smoker how long ago did patient quit smokin-40 years ago alcohol intake: never substance use type: does not use caffeine: Yes Type: coffee Number of servings: 3 ROS Const Const: Negative for fatigue, weakness, headache(s) or frequent falls Eyes Eyes: Negative for blurry vision ENT ENT: Negative for headache(s), dizziness or Nosebleed/epistaxis Cardio Chest Pain: No Palpitations: No Edema: None Muscle aches with walking: None Resp Respiratory: Positive for SOB with activity; Negative for SOB at rest or SOB orthopnea SOB lying down GI GI: Negative nausea, vomiting, heartburn, bright, red blood in stools or black,tarry stools : Negative for hematuria Neuro Neuro: Negative for dizziness, lightheadedness, near syncope, syncope, frequent falls, headache(s), weakness or blurry vision Endo Endo: Negative for fatigue Cardiology Exam Const Appearance: cooperative, comfortable, no acute distress and well developed; Negative diaphoretic or ill appearing Nutritional Appearance: ove (more content not included)... Normal [facility] PSA,Total- Diagnosticon 07-0 PSA, DIAGNOSTIC 6.88 ng/mL High 0.00-4.00 [facility] Comment on above: Order Comment: PER P T-JUST THIS ORDER TODAY Result Comment: This test was performed using the [employer] tPSA method. Measured values of a patient??sample can vary depending on the testing procedure used. PSA values determined on patient samples by different testing procedures cannot be used interchangeably. If there is a change in PSA assays while monitoring therapy, sequential testing should be performed to confirm baseline values. Performed By: #### L [id number] ####[facility] [id number] [place], [address] Absolute lymphocyte countOrd ered By: Roberto Carlos Herron on 07-18-2024 Lymphocytes Auto (Unsp spec) [#/Vol] 0.99 10*3/uL 0.83-4.51 [facility] Absolute neutrophil countOrd ered By: Roberto Carlos Herron on 07-18-2024 Neutrophils (Bld) [#/Vol] 3.8 10*3/uL 2.0-7.7 [facility] Anion gap in Serum or Plasma Ordered By: Roberto Carlos Herron on 07-18-2024 Anion gap [Moles/Vol] 10 mmol/L 5- [facility] Automated lymphocyte count a s percentage of total leukocytesOrdered By: Roberto Carlos Herron on 07-18-2024 Lymphocytes/100 WBC Auto (Unsp spec) 18.3 % Low - [facility] BUN/creatinine ratioOrdered By: Roberto Carlos Herron on 07-18-2024 Urea nitrogen/Creatinine [Mass ratio] 16.6 mg/mg - [facility] Basophil percentageOrdered B y: Roberto Carlos Herron on 07-18-2024 Basophils/100 WBC (Bld) 0.7 % 0-1 [facility] Bilirubin, totalOrdered By: Roberto Carlos Herron on 07-18-2024 Bilirubin [Mass/Vol] 0.54 mg/dL 0.00-1.30 [facility] CBC W/Diff, Automatedon 06-30 Absolute Lymph 0.99 X10 3/uL Normal 0.83-4.51 [facility] Comment on above: Order Comment: YUDITH CASTRO STATESN THAT HE WOULD LIKE TO HAVE LABS FROM DR. GARDUNO DONE ALSO Performed By: #### L [id number], L100.0100, L506.0400, [id number] #### [facility] [address] [place], [address] Absolute Neut 3.8 X10 3/uL Normal 2.0-7.7 [facility] Comment on above: Order Comment: YUDITH CASTRO STATESN THAT HE WOULD LIKE TO HAVE LABS FROM DR. GARDUNO DONE ALSO Performed By: #### L [id number], L100.0100, L506.0400, [id number] #### [facility] [address] [place], [address] Basophils/100 WBC (Bld) 0.7 % Normal 0-1 [facility] Comment on above: Order Comment: YUDITH CASTRO STATESN THAT HE WOULD LIKE TO HAVE LABS FROM DR. GARDUNO DONE ALSO Performed By: #### L [id number], L100.0100, L506.0400, [id number] #### [facility] [address] [place], [address] Eosinophils/100 WBC (Bld) 0.0 % Normal 0-5 [facility] Comment on above: Order Comment: REGANHaja CASTRO STATESN THAT HE WOULD LIKE TO HAVE LABS FROM DR. GARDUNO DONE ALSO Performed By: #### L [id number], L100.0100, L506.0400, [id number] #### [facility] [address] [place], [address] Erythrocyte distribution width (RBC) [Ratio] 12.8 % Normal 11.6-14.6 [facility] Comment on above: Order Comment: YUDITH CASTRO STATESN THAT HE WOULD LIKE TO HAVE LABS FROM DR. GARDUNO DONE ALSO Performed By: #### L [id number], L100.0100, L506.0400, [id number] #### [facility] [address] [place], [address] Hematocrit (Bld) [Volume fraction] 39.9 % Low 40-54 [facility] Comment on above: Order Comment: YUDITH CASTRO STATESN THAT HE WOULD LIKE TO HAVE LABS FROM DR. GARDUNO DONE ALSO Performed By: #### L [id number], L100.0100, L506.0400, [id number] #### [facility] [address] [place], [address] Hemoglobin (Bld) [Mass/Vol] 13.4 g/dL Normal 13.0-16.5 [facility] Comment on above: Order Comment: YUDITH CASTRO STATESN THAT HE WOULD LIKE TO HAVE LABS FROM DR. GARDUNO DONE ALSO Performed By: #### L [id number], L100.0100, L506.0400, [id number] #### [facility] [address] [place], [address] IG% 0.200 Normal 0.0-0.9 [facility] Comment on above: Order Comment: YUDITH CASTRO STATESN THAT HE WOULD LIKE TO HAVE LABS FROM DR. GARDUNO DONE ALSO Result Comment: IG% - Immature Granulocytes (promyelocytes, myelocytes and metamyelocytes) > 1% indicates that a LEFT SHIFT is Present. Performed By: #### L [id number], L100.0100, L506.0400, [id number] #### [facility] [address] [place], [address] Lymphocytes/100 WBC (Bld) 18.3 % Low 19-41 [facility] Comment on above: Order Comment: YUDITH CASTRO STATESN THAT HE WOULD LIKE TO HAVE LABS FROM DR. GARDUNO DONE ALSO Performed By: #### L [id number], L100.0100, L506.0400, [id number] #### [facility] [address] [facility] [place], [address] MCH (RBC) [Entitic mass] 30.0 pg Normal 27.0-32.0 [facility] Comment on above: Order Comment: YUDITH CASTRO STATESN THAT HE WOULD LIKE TO HAVE LABS FROM DR. GARDUNO DONE ALSO Performed By: #### L [id number], L100.0100, L506.0400, [id number] #### [facility] [address] [facility] [place], [address] MCHC (RBC) [Mass/Vol] 33.6 g/dL Normal 32-36 [facility] Comment on above: Order Comment: YUDITH CASTRO STATESN THAT HE WOULD LIKE TO HAVE LABS FROM DR. GARDUNO DONE ALSO Performed By: #### L [id number], L100.0100, L506.0400, [id number] #### [facility] [address] [place], [address] MCV (RBC) [Entitic vol] 89.3 fL Normal 80-94 [facility] Comment on above: Order Comment: YUDITH CASTRO STATESN THAT HE WOULD LIKE TO HAVE LABS FROM DR. GARDUNO DONE ALSO Performed By: #### L [id number], L100.0100, [id number], [id number] #### [facility] [address] [place], [address] Monocytes/100 WBC (Bld) 10.4 % High 0-10 [facility] Comment on above: Order Comment: YUDITH CASTRO STATESN THAT HE WOULD LIKE TO HAVE LABS FROM DR. GARDUNO DONE ALSO Performed By: #### L [id number], L100.0100, [id number], [id number] #### [facility] [address] [place], [address] Neutrophils/100 WBC (Bld) 70.4 % High 47-70 [facility] Comment on above: Order Comment: YUDITH CASTRO STATESN THAT HE WOULD LIKE TO HAVE LABS FROM DR. GARDUNO DONE ALSO Performed By: #### L [id number], L100.0100, L506.0400, [id number] #### [facility] [address] [place], [address] Nucleated RBC (Bld) [#/Vol] 0 10*3/uL Normal 0-5 [facility] Comment on above: Order Comment: YUDITH CASTRO STATESN THAT HE WOULD LIKE TO HAVE LABS FROM DR. GARDUNO DONE ALSO Performed By: #### L [id number], L100.0100, L506.0400, [id number] #### [facility] [address] [place], [address] Platelet mean volume (Bld) [Entitic vol] 11.7 fL Normal 6.2-12.0 [facility] Comment on above: Order Comment: YUDITH CASTRO STATESN THAT HE WOULD LIKE TO HAVE LABS FROM DR. GARDUNO DONE ALSO Performed By: #### L [id number], L100.0100, L506.0400, [id number] #### [facility] [address] [place], [address] Platelets (Bld) [#/Vol] 164 10*3/uL Normal 150-450 [facility] Comment on above: Order Comment: YUDITH MATTHEW STATESN THAT HE WOULD LIKE TO HAVE LABS FROM DR. GARDUNO DONE ALSO Performed By: #### L 501.9520, L100.0100, L506.0400, L501.5200 #### [facility] [address] [place], [address] RBC (Bld) [#/Vol] 4.47 10*6/uL Low 4.6-6.2 [facility] Comment on above: Order Comment: YUDITH CASTRO STATESN THAT HE WOULD LIKE TO HAVE LABS FROM DR. GARDUNO DONE ALSO Performed By: #### L 501.9520, L100.0100, L506.0400, L501.5200 #### [facility] [address] [place], [address] RDW SD 41.8 fl Normal 35.1-43.9 [facility] Comment on above: Order Comment: YUDITH CASTRO STATESN THAT HE WOULD LIKE TO HAVE LABS FROM DR. GARDUNO DONE ALSO Performed By: #### L 501.9520, L100.0100, L506.0400, L501.5200 #### [facility] [address] [place], [address] WBC (Bld) [#/Vol] 5.4 10*3/uL Normal 4.4-11.0 [facility] Comment on above: Order Comment: YUDITH CASTRO STATESN THAT HE WOULD LIKE TO HAVE LABS FROM DR. GARDUNO DONE ALSO Performed By: #### L 501.9520, L100.0100, L506.0400, L501.5200 #### [facility] [address] [place], [address] Absolute Neut Normal 2.0-7.7 [facility] Comment on above: Result Comment: DUPL ICATE Performed By: #### L 100.0100 ####[facility] [address] [place], [address] HCT Normal 40-54 [facility] Comment on above: Result Comment: DUPL ICATE Performed By: #### L 100.0100 ####[facility] [address] [place], [address] HGB Normal 13.0-16.5 [facility] Comment on above: Result Comment: DUPL ICATE Performed By: #### L 100.0100 ####[facility] [address] [place], [address] MCH Normal 27.0-32.0 [facility] Comment on above: Result Comment: DUPL ICATE Performed By: #### L 100.0100 ####[facility] [address] [place], [address] MCHC Normal 32-36 [facility] Comment on above: Result Comment: DUPL ICATE Performed By: #### L 100.0100 ####[facility] [address] [place], [address] MCV Normal 80-94 [facility] Comment on above: Result Comment: DUPL ICATE Performed By: #### L 100.0100 ####[facility] [address] [place], [address] NEUT% Normal 47-70 [facility] Comment on above: Result Comment: DUPL ICATE Performed By: #### L 100.0100 ####[facility] [address] [place], [address] PLT Normal 150-450 [facility] Comment on above: Result Comment: DUPL ICATE Performed By: #### L 100.0100 ####[facility] [address] [place], [address] RBC Normal 4.6-6.2 [facility] Comment on above: Result Comment: DUPL ICATE Performed By: #### L 100.0100 ####[facility] [address] [place], [address] RDW CV Normal 11.6-14.6 [facility] Comment on above: Result Comment: DUPL ICATE Performed By: #### L 100.0100 ####[facility] [address] [place], [address] RDW SD Normal 35.1-43.9 [facility] Comment on above: Result Comment: DUPL ICATE Performed By: #### L 100.0100 ####[facility] [address] [place], [address] WBC Normal 4.4-11.0 [facility] Comment on above: Result Comment: DUPL ICATE Performed By: #### L 100.0100 ####[facility] [address] [place], [address] Calculated very low density lipoprotein (VLDL) cholesterol measurementOrdered By: Roberto Carlos Herron on 07-18-2024 Calculated very low density lipoprotein (VLDL) cholesterol measurement 17 mg/dL 5-40 [facility] Carbon dioxide, total [Moles /volume] in Central venous bloodOrdered By: Roberto Carlos Herron on 07-18-2024 CO2 [Moles/Vol] 21.1 mmol/L 21.0-32.0 [facility] Chloride assayOrdered By: Javier Herron on 07-18-2024 Chloride [Moles/Vol] 103 mmol/L 98-108 [facility] Comprehensive Metabolic Prof ilon 07-18-2024 Albumin [Mass/Vol] 4.0 g/dL Normal 3.4-4.8 [facility] Comment on above: Order Comment: Order Date: 07/17/24Order Info: [id number] - CMPOrder Info: [id number] - LIPIDOrder Info: [id number] - PSAD DR. GALLOWAY GETS RESULTS FOR PSADDR. GERMAINE GETS RESULTS FOR FOR PSAD CMP ROOF GETS RESULTSFOR ALL OTHER LABS Performed By: #### L 501.9940, L500.4100, L500.4050 ####[facility] [address] [place], [address] Albumin/Globulin [Mass ratio] 1.4 {ratio} Normal 0.9-2.4 [facility] Comment on above: Order Comment: Order Date: 07/17/24Order Info: [id number] - CMPOrder Info: - LIPIDOrder Info: [id number] - PSAD DR. GALLOWAY GETS RESULTS FOR PSADDR. GERMAINE GETS RESULTS FOR FOR PSAD CMP ROOF GETS RESULTSFOR ALL OTHER LABS Performed By: #### L 501.9940, L500.4100, L500.4050 ####[facility] [address] [place], [address] ALK PHOS 57 U/L Normal 40-129 [facility] Comment on above: Order Comment: Order Date: 07/17/24Order Info: [id number] - CMPOrder Info: - LIPIDOrder Info: [id number] - PSAD DR. GALLOWAY GETS RESULTS FOR PSADDR. GERMAINE GETS RESULTS FOR FOR PSAD CMP ROOF GETS RESULTSFOR ALL OTHER LABS Performed By: #### L 501.9940, L500.4100, L500.4050 ####[facility] [address] [place], [address] ALT [Catalytic activity/Vol] 17 U/L Normal <=46 [facility] Comment on above: Order Comment: Order Date: 07/17/24Order Info: [id number] - CMPOrder Info: - LIPIDOrder Info: [id number] - PSAD DR. GALLOWAY GETS RESULTS FOR PSADDR. GERMAINE GETS RESULTS FOR FOR PSAD CMP ROOF GETS RESULTSFOR ALL OTHER LABS Performed By: #### L 501.9940, L500.4100, L500.4050 ####[facility] [address] [place], [address] AST [Catalytic activity/Vol] 21 U/L Normal <=37 [facility] Comment on above: Order Comment: Order Date: 07/17/24Order Info: [id number] - CMPOrder Info: - LIPIDOrder Info: [id number] - SAMANTHA GALLOWAY GETS RESULTS FOR PSADDR. GERMAINE GETS RESULTS FOR FOR PSAD CMP ROOF GETS RESULTSFOR ALL OTHER LABS Performed By: #### L 501.9940, L500.4100, L500.4050 ####[facility] [address] [place], [address] Bilirubin [Mass/Vol] 0.54 mg/dL Normal 0.00-1.30 [facility] Comment on above: Order Comment: Order Date: 07/17/24Order Info: [id number] - CMPOrder Info: [id number] - LIPIDOrder Info: [id number] - PSAD DR. GALLOWAY GETS RESULTS FOR PSADDR. GERMAINE GETS RESULTS FOR FOR PSAD CMP ROOF GETS RESULTSFOR ALL OTHER LABS Performed By: #### L 501.9940, L500.4100, L500.4050 ####[facility] [address] [place], [address] BUN/CRE 16.6 RATIO Normal 10-20 [facility] Comment on above: Order Comment: Order Date: 07/17/24Order Info: [id number] - CMPOrder Info: [id number] - LIPIDOrder Info: [id number] - PSAD DR. GALLOWAY GETS RESULTS FOR PSADDR. GERMAINE GETS RESULTS FOR FOR PSAD CMP ROOF GETS RESULTSFOR ALL OTHER LABS Performed By: #### L 501.9940, L500.4100, L500.4050 ####[facility] [address] [place], [address] Calcium [Mass/Vol] 8.9 mg/dL Normal 7.6-11.0 [facility] Comment on above: Order Comment: Order Date: 07/17/24Order Info: [id number] - CMPOrder Info: [id number] - LIPIDOrder Info: [id number] - PSAD DR. GALLOWAY GETS RESULTS FOR PSADDR. GERMAINE GETS RESULTS FOR FOR PSAD CMP ROOF GETS RESULTSFOR ALL OTHER LABS Performed By: #### L 501.9940, L500.4100, L500.4050 ####[facility] [address] [place], [address] Chloride [Moles/Vol] 103 mmol/L Normal 98-108 [facility] Comment on above: Order Comment: Order Date: 07/17/24Order Info: [id number] - CMPOrder Info: [id number] - LIPIDOrder Info: 07 - PSAD DR. GALLOWAY GETS RESULTS FOR PSADDR. GERMAINE GETS RESULTS FOR FOR PSAD CMP ROOF GETS RESULTSFOR ALL OTHER LABS Performed By: #### L 501.9940, L500.4100, L500.4050 ####[facility] [address] [place], [address] CO2 [Moles/Vol] 21.1 mmol/L Normal 21.0-32.0 [facility] Comment on above: Order Comment: Order Date: 07/17/24Order Info: [id number] - CMPOrder Info: - LIPIDOrder Info: 07 - PSAD DR. GALLOWAY GETS RESULTS FOR PSADDR. GERMAINE GETS RESULTS FOR FOR PSAD CMP ROOF GETS RESULTSFOR ALL OTHER LABS Performed By: #### L 501.9940, L500.4100, L500.4050 ####[facility] [address] [place], [address] Creatinine [Mass/Vol] 0.88 mg/dL Normal 0.70-1.20 [facility] Comment on above: Order Comment: Order Date: 07/17/24Order Info: [id number] - CMPOrder Info: [id number] - LIPIDOrder Info: 07 - PSAD DR. GALLOWAY GETS RESULTS FOR PSADDR. GERMAINE GETS RESULTS FOR FOR PSAD CMP ROOF GETS RESULTSFOR ALL OTHER LABS Performed By: #### L 501.9940, L500.4100, L500.4050 ####[facility] [address] [place], [address] GAP 10 Normal 5-15 [facility] Comment on above: Order Comment: Order Date: 07/17/24Order Info: [id number] - CMPOrder Info: - LIPIDOrder Info: 07 - PSAD DR. GALLOWAY GETS RESULTS FOR PSADDR. GERMAINE GETS RESULTS FOR FOR PSAD CMP ROOF GETS RESULTSFOR ALL OTHER LABS Performed By: #### L 501.9940, L500.4100, L500.4050 ####[facility] [address] [place], [address] GFR/1.73 sq M.predicted among non-blacks MDRD (S/P/Bld) [Vol rate/Area] 87 mL/min/{1.73_m2} Normal >60 [facility] Comment on above: Order Comment: Order Date: 07/17/24Order Info: [id number] - CMPOrder Info: - LIPIDOrder Info: [id number] - PSAD DR. GALLOWAY GETS RESULTS FOR PSADDR. GERMAINE GETS RESULTS FOR FOR PSAD CMP ROOF GETS RESULTSFOR ALL OTHER LABS Result Comment: mL/m in/1.73m2 CKD-EPI Creatinine Equation (2020) Performed By: #### L 501.9940, L500.4100, L500.4050 ####[facility] [address] [place], [address] Globulin (S) [Mass/Vol] 2.8 g/dL Normal 2.2-4.2 [facility] Comment on above: Order Comment: Order Date: 07/17/24Order Info: [id number] - CMPOrder Info: - LIPIDOrder Info: [id number] - PSAD DR. GALLOWAY GETS RESULTS FOR PSADDR. GERMAINE GETS RESULTS FOR FOR PSAD CMP ROOF GETS RESULTSFOR ALL OTHER LABS Performed By: #### L 501.9940, L500.4100, L500.4050 ####[facility] [address] [place], [address] Glucose [Mass/Vol] 102 mg/dL High 70-99 [facility] Comment on above: Order Comment: Order Date: 07/17/24Order Info: [id number] - CMPOrder Info: [id number] - LIPIDOrder Info: [id number] - PSAD DR. GALLOWAY GETS RESULTS FOR PSADDR. GERMAINE GETS RESULTS FOR FOR PSAD CMP ROOF GETS RESULTSFOR ALL OTHER LABS Performed By: #### L 501.9940, L500.4100, L500.4050 ####[facility] [address] [place], [address] Potassium [Moles/Vol] 4.0 mmol/L Normal 3.3-5.1 [facility] Comment on above: Order Comment: Order Date: 07/17/24Order Info: [id number] - CMPOrder Info: - LIPIDOrder Info: [id number] - PSAD DR. GALLOWAY GETS RESULTS FOR PSADDR. GERMAINE GETS RESULTS FOR FOR PSAD CMP ROOF GETS RESULTSFOR ALL OTHER LABS Performed By: #### L 501.9940, L500.4100, L500.4050 ####[facility] [address] [place], [address] Sodium [Moles/Vol] 134 mmol/L Normal 133-145 [facility] Comment on above: Order Comment: Order Date: 07/17/24Order Info: [id number] - CMPOrder Info: - LIPIDOrder Info: [id number] - PSAD DR. GALLOWAY GETS RESULTS FOR PSADDR. GERMAINE GETS RESULTS FOR FOR PSAD CMP ROOF GETS RESULTSFOR ALL OTHER LABS Performed By: #### L 501.9940, L500.4100, L500.4050 ####[facility] [address] [place], [address] T PROT 6.8 g/dL Normal 5.9-8.4 [facility] Comment on above: Order Comment: Order Date: 07/17/24Order Info: [id number] - CMPOrder Info: - LIPIDOrder Info: [id number] - PSAD DR. GALLOWAY GETS RESULTS FOR PSADDR. GERMAINE GETS RESULTS FOR FOR PSAD CMP ROOF GETS RESULTSFOR ALL OTHER LABS Performed By: #### L 501.9940, L500.4100, L500.4050 ####[facility] [address] [place], [address] Urea nitrogen [Mass/Vol] 15 mg/dL Normal 4- [facility] Comment on above: Order Comment: Order Date: 07/17/24Order Info: [id number] - CMPOrder Info: [id number] - LIPIDOrder Info: [id number] - PSAD DR. GALLOWAY GETS RESULTS FOR PSADDRKd HERRON GETS RESULTS FOR FOR PSAD CMP SHABNAM GETS RESULTSFOR ALL OTHER LABS Performed By: #### L 501.9940, L500.4100, L500.4050 ####[facility] [address] [place], [place], [id number] Eosinophil percentageOrdered By: Roberto Carlos Herron on 07-18-2024 Eosinophils/100 WBC (Bld) 0.0 % 0-5 [facility] Erythrocyte distribution wid th ratioOrdered By: Roberto Carlos Herron on 07-18-2024 Erythrocyte distribution width (RBC) [Ratio] 12.8 % 11.6-14.6 [facility] Erythrocyte distribution wid th standard deviationOrdered By: Roberto Carlos Herron on 07-18-2024 Erythrocyte distribution width (RBC) [Ratio] 41.8 fl 35.1-43.9 [facility] Glomerular filtration rate ( GFR) estimation/1.73 sq m using serum, plasma, or whole bOrdered By: Roberto Carlos Herron on 07-18-2024 GFR/1.73 sq M.predicted among non-blacks MDRD (S/P/Bld) [Vol rate/Area] 87 mL/min/{1.73_m2} >60 [facility] Comment on above: mL/min/1.73m2 CKD-EP I Creatinine Equation (2020) Hematocrit Auto (Bld) [Volum e fraction]Ordered By: Roberto Carlos Herron on 07-18-2024 Hematocrit (Bld) [Volume fraction] 39.9 % Low 40-54 [facility] Hemoglobin measurementOrdere d By: Roberto Carlos Herron on 07-18-2024 Hemoglobin (Bld) [Mass/Vol] 13.4 g/dL 13.0-16.5 [facility] Immature granulocytes/100 WB C Auto (Bld)Ordered By: Roberto Carlos Herron on 07-18-2024 Immature granulocytes/100 WBC (Bld) 0.200 % 0.0-0.9 [facility] Comment on above: IG% - Immature Granu locytes (promyelocytes, myelocytes and metamyelocytes) > 1% indicates that a LEFT SHIFT is Present. LDL calc ser/plasOrdered By: Roberto Carlos Herron on 07-18-2024 Cholesterol in LDL [Mass/Vol] 62 mg/dL [facility] Comment on above: Izbdhxxcrs=885-671 m g/dL & Higher Kwpw=221 mg/dL or greater Laboratory - Chemistry and C hemistry - challengeOrdered By: Roberto Carlos Herron on 07-18-2024 AST [Catalytic activity/Vol] 21 U/L <38 [facility] Lipid Profileon 07-18-2024 CHOL:HDL 2.57 Normal [facility] Comment on above: Order Comment: Order Date: 07/17/24Order Info: [id number] - CMPOrder Info: [id number] - LIPIDOrder Info: [id number] - PSAD DR. GALLOWAY GETS RESULTS FOR PSADDR. GERMAINE GETS RESULTS FOR FOR PSAD CMP [facility] GETS RESULTSFOR ALL OTHER LABS Performed By: #### L 501.9940, L500.4100, L500.4050 ####[facility] [address] [place], [place], [address] Cholesterol [Mass/Vol] 129 mg/dL Normal <=200 [facility] Comment on above: Order Comment: Order Date: 07/17/24Order Info: [id number] - CMPOrder Info: [id number] - LIPIDOrder Info: [id number] - PSAD DR. GALLOWAY GETS RESULTS FOR PSADDR. GERMAINE GETS RESULTS FOR FOR PSAD CMP ROOF GETS RESULTSFOR ALL OTHER LABS Result Comment: Chol esterol level, Desirable <200 mg/dL Borderline high cholesterol 200-239 mg/dL High cholesterol >=240 mg/dL Recommendations of the NCEP Adult Treatment Panel for the following risk-cutoff thresholds for the [place] population. Performed By: #### L 501.9940, L500.4100, L500.4050 ####[facility] [address] [place], [address] Cholesterol in HDL [Mass/Vol] 50 mg/dL Normal [facility] Comment on above: Order Comment: Order Date: 07/17/24Order Info: [id number] - CMPOrder Info: - LIPIDOrder Info: [id number] - PSAD DR. GALLOWAY GETS RESULTS FOR PSADDR. GERMAINE GETS RESULTS FOR FOR PSAD CMP ROOF GETS RESULTSFOR ALL OTHER LABS Result Comment: [place] on[place] Cholesterol Education Program (NCEP) guidelines: <40 mg/dL: Low HDL-cholesterol (major risk factor for CHD) >= 60 mg/dL: High HDL-cholesterol (negative risk factor for CHD) HDL-cholesterol is affected by a number of factors, e.g. smoking, exercise, hormones, sex and age. Performed By: #### L 501.9940, L500.4100, L500.4050 ####[facility] [address] [place], [address] Cholesterol in LDL [Mass/Vol] 62 mg/dL Normal [facility] Comment on above: Order Comment: Order Date: 07/17/24Order Info: [id number] - CMPOrder Info: - LIPIDOrder Info: [id number] - PSAD DR. GALLOWAY GETS RESULTS FOR PSADDR. GERMAINE GETS RESULTS FOR FOR PSAD CMP ROOF GETS RESULTSFOR ALL OTHER LABS Result Comment: Bord welzvw=530-961 mg/dL Higher Bymh=427 mg/dL or greater Performed By: #### L 501.9940, L500.4100, L500.4050 ####[facility] [address] [place], [address] Cholesterol in VLDL [Mass/Vol] 17 mg/dL Normal 5-40 [facility] Comment on above: Order Comment: Order Date: 07/17/24Order Info: [id number] - CMPOrder Info: - LIPIDOrder Info: [id number] - PSAD DR. GALLOWAY GETS RESULTS FOR PSADDR. GERMAINE GETS RESULTS FOR FOR PSAD CMP ROOF GETS RESULTSFOR ALL OTHER LABS Performed By: #### L 501.9940, L500.4100, L500.4050 ####[facility] [address] [place], [address] Triglyceride [Mass/Vol] 85 mg/dL Normal [facility] Comment on above: Order Comment: Order Date: 07/17/24Order Info: [id number] - CMPOrder Info: [id number] - LIPIDOrder Info: [id number] - PSAD DR. GALLOWAY GETS RESULTS FOR PSADDLucius HERRON GETS RESULTS FOR FOR PSAD CMP ROOF GETS RESULTSFOR ALL OTHER LABS Result Comment: The drugs N-Acetylcysteine and Metamizole may falsely depress this assay. Normal range: <150 mg/dL Borderline High: 150-199 mg/dL High: 200-499 mg/dL Very High: >500 mg/dL Performed By: #### L 501.9940, L500.4100, L500.4050 ####[facility] [address] [place], [address] MCV (mean corpuscular volume ) determinationOrdered By: Roberto Carlos Herron on 07-18-2024 MCV (RBC) [Entitic vol] 89.3 fL 80-94 [facility] Magnesiumon 07-18-2024 Magnesium [Mass/Vol] 2.2 mg/dL Normal 1.5-2.2 [facility] Comment on above: Order Comment: Order Date: 07/17/24 Order Info: [id number] - CMP Order Info: [id number] - LIPID Order Info: 83 - PSAD DR. GALLOWAY GETS RESULTS FOR PSAD DR. HERRON GETS RESULTS FOR FOR PSAD CMP ROOF GETS RESULTS FOR ALL OTHER LABS Performed By: #### L 501.9520, L100.0100, L506.0400, L501.5200 #### [facility] [address] [place], [address] Magnesium measurement (mass/ volume)Ordered By: Roberto Carlos Herron on 07-18-2024 Magnesium (Unsp spec) [Mass/Vol] 2.2 mg/dL 1.5-2.2 [facility] Mean corpuscular hemoglobin (MCH) determinationOrdered By: Roberto Carlos Herron on 07-18-2024 MCH (RBC) [Entitic mass] 30.0 pg 27.0-32.0 [facility] Mean corpuscular hemoglobin concentration (MCHC) determinationOrdered By: Roberto Carlos Herron on 07-18-2024 MCHC (RBC) [Mass/Vol] 33.6 g/dL 32-36 [facility] Mean platelet volume determi nationOrdered By: Roberto Carlos Herron on 07-18-2024 Platelet mean volume (Bld) [Entitic vol] 11.7 fL 6.2-12.0 [facility] Monocyte percentageOrdered B y: Roberto Carlos Herron on 07-18-2024 Monocytes/100 WBC (Bld) 10.4 % High 0-10 [facility] Neutrophil percentageOrdered By: Roberto Carlos Herron on 07-18-2024 Neutrophils/100 WBC (Bld) 70.4 % High 47-70 [facility] Nucleated red blood cell per centageOrdered By: Roberto Carlos Herron on 07-18-2024 Nucleated RBC/100 WBC (Bld) [Ratio] 0 % 0-5 [facility] PSA,Total- [employer] 05-2 0-2024 PSA, DIAGNOSTIC 6.22 ng/mL High 0.00-4.00 [facility] Comment on above: Order Comment: Order Date: 07/17/24Order Info: [id number] - CMPOrder Info: [id number] - LIPIDOrder Info: [id number] - PSAD DR. GALLOWAY GETS RESULTS FOR PSADDR. GERMAINE GETS RESULTS FOR FOR PSAD CMP SHABNAM GETS RESULTSFOR ALL OTHER LABS Result Comment: This test was performed using the [employer] tPSA method. Measured values of a patient??sample can vary depending on the testing procedure used. PSA values determined on patient samples by different testing procedures cannot be used interchangeably. If there is a change in PSA assays while monitoring therapy, sequential testing should be performed to confirm baseline values. Performed By: #### L 501.9940, L500.4100, L500.4050 ####[facility] [address] [place], [place], [id number] Platelet countOrdered By: Javeir Herron on 07-18-2024 Platelets (Bld) [#/Vol] 164 10*3/uL 150-450 [facility] Potassium measurement (mass/ volume)Ordered By: Roberto Carlos Herron on 07-18-2024 Potassium (Unsp spec) [Mass/Vol] 4.0 mmol/L 3.3-5.1 [facility] RBC Auto (Bld) [#/Vol]Ordere d By: oRberto Carlos Herron on 07-18-2024 RBC (Bld) [#/Vol] 4.47 10*6/uL Low 4.6-6.2 [facility] Screening total cholesterol/ high density lipoprotein (HDL) cholesterol ratioOrdered By: Roberto Carlos Herron on 07-18-2024 Cholesterol.total/Shari sterol in HDL [Mass ratio] 2.57 {ratio} [facility] Serum creatinine measurement (mass/volume)Ordered By: Roberto Carlos Herron on 07-18-2024 Creatinine [Mass/Vol] 0.88 mg/dL 0.70-1.20 [facility] Serum globulin measurementOr dered By: Roberto Carlos Herron on 07-18-2024 Globulin (S) [Mass/Vol] 2.8 g/dL 2.2-4.2 [facility] Serum glucose measurement (m ass/volume)Ordered By: Roberto Carlos Herron on 07-18-2024 Glucose [Mass/Vol] 102 mg/dL High 70-99 [facility] Serum or plasma alanine mejía otransferase (ALT) measurementOrdered By: Roberto Carlos Herron on 07-18-2024 ALT [Catalytic activity/Vol] 17 U/L <47 [facility] Serum or plasma albumin yue urement (mass/volume)Ordered By: Roberto Carlos Herron on 07-18-2024 Albumin [Mass/Vol] 4.0 g/dL 3.4-4.8 [facility] Serum or plasma albumin/glob ulin mass ratioOrdered By: Roberto Carlos Herron on 07-18-2024 Albumin/Globulin [Mass ratio] 1.4 {ratio} 0.9-2.4 [facility] Serum or plasma alkaline zahida sphatase measurementOrdered By: Roberto Carlos Herron on 07-18-2024 ALP [Catalytic activity/Vol] 57 U/L 40-129 [facility] Serum or plasma calcium yue urement (mass/volume)Ordered By: Roberto Carlos Herron on 07-18-2024 Calcium [Mass/Vol] 8.9 mg/dL 7.6-11.0 [facility] Serum or plasma cholesterol in HDL measurement (mass/volume)Ordered By: Roberto Carlos Herron on 07-18-2024 Cholesterol in HDL [Mass/Vol] 50 mg/dL >40 [facility] Comment on above: National Cholesterol Education Program (NCEP) guidelines:<40 mg/dL: Low HDL-cholesterol (major risk factor for CHD)>= 60 mg/dL: High HDL-cholesterol (negative risk factor for CHD)HDL-cholesterol is affected by a number of factors, e.g. smoking, exercise, hormones, sex and age. Serum or plasma cholesterol measurement (mass/volume)Ordered By: Roberto Carlos Herron on 07-18-2024 Cholesterol [Mass/Vol] 129 mg/dL <201 [facility] Comment on above: Cholesterol level, D esirable <200 mg/dLBorderline high cholesterol 200-239 mg/dLHigh cholesterol >=240 mg/dLRecommendations of the NCEP Adult Treatment Panel for the following risk-cutoff thresholds for the [place] population. Serum or plasma urea nitroge n measurement (mass/volume)Ordered By: Roberto Carlos Herron on 07-18-2024 Urea nitrogen [Mass/Vol] 15 mg/dL 4-19 [facility] Sodium levelOrdered By: Roberto Carlos Herron on 07-18-2024 Sodium [Moles/Vol] 134 mmol/L 133-145 [facility] T4 Free Directon 07-18-2024 T4 FREE DIRECT 1.20 ng/dL Normal 0.76-1.46 [facility] Comment on above: Order Comment: Order Date: 07/17/24 Order Info: [id number] - CMP Order Info: [id number] - LIPID Order Info: [id number] - PSAD DR. GALLOWAY GETS RESULTS FOR PSAD DR. HERRON GETS RESULTS FOR FOR PSAD CMP ROOF GETS RESULTS FOR ALL OTHER LABS Performed By: #### L 501.9597, L100.0100, L506.0400, L501.5200 #### [facility] [address] [place], [address] T4 freeOrdered By: Roberto Carlos rivera on 07-18-2024 Free T4 [Mass/Vol] 1.20 ng/dL 0.76-1.46 [facility] TSH DL <= 0.005 mIU/L QnOrde red By: Roberto Carlos Herron on 07-18-2024 TSH Qn 2.830 uIU/mL 0.300-4.200 [facility] Thyroid Stim Hormone (TSH)on 07-18-2024 TSH 2.830 uIU/mL Normal 0.300-4.200 [facility] Comment on above: Order Comment: Order Date: 07/17/24 Order Info: [id number] - CMP Order Info: [id number] - LIPID Order Info: [id number] - PSAD DR. GALLOWAY GETS RESULTS FOR PSAD DR. HERRON GETS RESULTS FOR FOR PSAD CMP ROOF GETS RESULTS FOR ALL OTHER LABS Performed By: #### L 501.9520, L100.0100, L506.0400, L501.5200 #### [facility] [address] [place], [place], [address] Total proteinOrdered By: Deyanira Herron on 07-18-2024 Protein [Mass/Vol] 6.8 g/dL 5.9-8.4 [facility] Triglycerides measurementOrd ered By: Roberto Carlos Herron on 07-18-2024 Triglyceride [Mass/Vol] 85 mg/dL <199 [facility] Comment on above: The drugs N-Acetylcy steine and Metamizole may falsely depress this assay. Normal range: <150 mg/dLBorderline High: 150-199 mg/dLHigh: 200-499 mg/dLVery High: >500 mg/dL White blood cell (WBC) count Ordered By: Roberto Carlos Herron on 07-18-2024 WBC (Bld) [#/Vol] 5.4 10*3/uL 4.4-11.0 [facility] Cardiovascular stress test r eportOrdered By: Pieter Beyer on 05-01-2024 Study report [facility] [address] [place] [address] MR#: [id number] Acct: [id number] Name: MARIA TERESA TAVARES III Rep #: [id number] : 1945 79 From: Pieter Beyer MD Primary Care: Dr. Roberto Carlos Herron MD Status : REG CLI Referring Dr: Kev Garduno NP [employer] APPLICATION DEVELOPER-C Sex: M C Stress Test Report Date: 05/01/2024 Procedure: Exercise tolerance test/imaging study Indications: Chest pain Consent: Per the patient Procedure: The patient exercised on a Vu protocol for 6 minutes achieving a peak heart rate of 129 bpm (92% predicted maximal heart rate) with a peak blood pressure 184/74 mmHg and a peak MET capacity of 7.0 METs. The baseline ECG demonstrated sinus rhythm with frequent PACs and occasional PVC. The peak exercise ECG demonstrated frequent PACs with occasional runs and frequent PVCs.. The functional capacity was considered good for age. There was no complaint of chest discomfort during exercise or recovery. The examination was discontinued secondary to target heart rate being achieved and dyspnea. The patient was injected with 13.0 mCi of technetium 99m Cardiolite and subsequently rest SPECT Cardiolite nuclear imaging was obtained in the horizontal long, vertical long, and short axis views. Post-exercise, the patientwas injected with 43.9 mCi of technetium 99m Cardiolite and subsequently stress SPECT Cardiolite nuclear imaging was obtained in the horizontal long, vertical long, and short axis views. A gated Cardiolite study at peak stress was obtained. Rest and stress SPECT Cardiolite nuclear imaging status post realignment, normalization, and attenuation correction, demonstrates the appearance of relative uniform tracer uptake and myocardial perfusion appearing within normal limits. There is end systolic thickening and brightening. The gated Cardiolitestudy demonstrates myocardial thickening and inward wall motion. The reported LVEF is 54%. Impression: 1. Technically adequate (percent predicted maximal heart rate greater than 85%)exercise tolerance test 2. Peak exercise ECG with no ischemic changes 3. Frequent PVCs including few runs and frequent PVCs noted with exercise 4. Rest and stress SPECT Cardiolite nuclear imaging demonstrate relative uniform tracer uptake and myocardial perfusion appearing within normal limits. 5. The gated Cardiolite study reports an LVEF of 54%. This note was generated with [employer] software. It may contain incorrectwords, spelling, and punctuation that were not noted in checking the note beforesigning. 05/01/24 4660 Date _ Pieter Beyer MD CC: [employer] APPLICATION DEVELOPER-C Kev Garduno; Dr. Roberto Carlos Herron MD ~ Date Dictated: 05/01/241134 Date Transcribed: 05/01/241134 Stitch Bonder Machine Operator Helper: AR Signed [facility] Work Phone: Stress Reporton 05-01-2024 Stress Report [facility] Cardiovascular Services [address] [place] [address] MR#: [id number] Acct: [id number] Name: MARIA TERESA TAVARES III Rep #: [id number] : 1945 79 From: Pieter Beyer MD Primary Care: Dr. Roberto Carlos Herron MD Status: REG CLI Referring Dr: Kev Garduno NP, NP-Nakul Sex: M C Stress Test Report Date: 05/01/2024 Procedure: Exercise tolerance test/imaging study Indications: Chest pain Consent: Per the patient Procedure: The patient exercised on a Vu protocol for 6 minutes achieving a peak heart rate of 129 bpm (92% predicted maximal heart rate) with a peak blood pressure 184/74 mmHg and a peak MET capacity of 7.0 METs. The baseline ECG demonstrated sinus rhythm with frequent PACs and occasional PVC. The peak exercise ECG demonstrated frequent PACs with occasional runs and frequent PVCs.. The functional capacity was considered good for age. There was no complaint of chest discomfort during exercise or recovery. The examination was discontinued secondary to target heart rate being achieved and dyspnea. The patient was injected with 13.0 mCi of technetium 99m Cardiolite and subsequently rest SPECT Cardiolite nuclear imaging was obtained in the horizontal long, vertical long, and short axis views. Post-exercise, the patient was injected with 43.9 mCi of technetium 99m Cardiolite and subsequently stress SPECT Cardiolite nuclear imaging was obtained in the horizontal long, vertical long, and short axis views. A gated Cardiolite study at peak stress was obtained. Rest and stress SPECT Cardiolite nuclear imaging status post realignment, normalization, and attenuation correction, demonstrates the appearance of relative uniform tracer uptake and myocardial perfusion appearing within normal limits. There is end systolic thickening and brightening. The gated Cardiolite study demonstrates myocardial thickening and inward wall motion. The reported LVEF is 54%. Impression: 1. Technically adequate (percent predicted maximal heart rate greater than 85%) exercise tolerance test 2. Peak exercise ECG with no ischemic changes 3. Frequent PVCs including few runs and frequent PVCs noted with exercise 4. Rest and stress SPECT Cardiolite nuclear imaging demonstrate relative uniform tracer uptake and myocardial perfusion appearing within normal limits. 5. The gated Cardiolite study reports an LVEF of 54%. This note was generated with [employer] dictation software. It may contain incorrect words, spelling, and punctuation that were not noted in checking the note before signing. 05/01/24 1137 Date Pieter Beyer MD CC: LISA Garduno; Dr. Roberto Carlos Herron MD Date Dictated: 05/01/241134 Date Transcribed: 05/01/24 113 Stitch Bonder Machine Operator Helper: DMITRIY Signed Normal [facility] PSA Total+%Freeon 03-14-2024 PSA, FREE 1.09 ng/mL Normal N/A [facility] Comment on above: Result Comment: Ora MEZA methodology. Performed By: #### L 3110.0500 #### [facility] [address] [place], [address] PSA, FREE % 15.1 Normal . [facility] Comment on above: Result Comment: The table below lists the probability of prostate cancer for men with non-suspicious GUNNER results and total PSA between 4 and 10 ng/mL, by patient age (Merrick et al, JAMIE 1998, 279:1542). % Free PSA 50-64 yr 65-75 yr 0.00-10.00% 56% 55% 10.01-15.00% 24% 35% 15.01-20.00% 17% 23% 20.01-25.00% 10% 20% >25.00% 5% 9% Please note: Merrick et al did not make specific recommendations regarding the use of percent free PSA for any other population of men. Performed at: [facility] - [facility] [id number] Permit Review Assistant: Estevan Lozoya PhD, Phone: [phone] Performed By: #### L 3110.0500 #### [facility] [address] [place], [place], [address] PSA, TOTAL ULTR 7.210 ng/mL Abnormal 0.000-4.000 [facility] Comment on above: Result Comment: Ora bueno ECLYASMIN methodology. According to the [place] [employer], Serum PSA should decrease and remain at undetectable levels after radical prostatectomy. The AUA defines biochemical recurrence as an initial PSA value 0.200 ng/mL or greater followed by a subsequent confirmatory PSA value 0.200 ng/mL or greater. Values obtained with different assay methods or kits cannot be used interchangeably. Results cannot be interpreted as absolute evidence of the presence or absence of malignant disease. Performed By: #### L 3110.0500 #### [facility] [address] [place], [place], [address] 12 Lead EKG performed [place] [facility] 03-13-2024 12 Lead EKG performed by [facility] [address] [place] [address] 12 Lead EKG performed by [facility] 03/13/24 0855 MR#: [id number] Acct: [id number] Name: MARIA TERESA TAVARES III Rep #: [id number] : 1945 78 From: Juliocesar Copeland MD Attending Dr: Dr. Juliocesar Copeland MD Status: DE P [facility] Ordering Dr: Juliocesar Copeland MD Date: 03/13/24 [place] [facility] [place] M C [place]: [facility]12 Lead EKG performed by [facility] ECG Report Interpretation --Sinus Rhythm -First degree A-V block - frequent PAC s Mitzi = 224 # PACs = 2.BORDERLINE RHYTHMElectronically signed on 03/13/2024 at 10:[address] Juliocesar Copeland [employer] Version 8610 03/13/24 1049 Date Juliocesar Copeland MD CC: Dr. Roberto Carlos Herron MD Date Dictated: 03/13/24854 Date Transcribed: 03/13/24854 Stitch Bonder Machine Operator Helper: Signed Normal [facility] Cardiology Visit Reporton Cardiology Visit Report [facility] [address] [place] [address] OFFICE VISIT Date of Service: 03/13/24 MR#: [id number] Acct: [id number] Name: MARIA TERESA TAVARES III Rep #: [id number] : 1945 Provider: Dr. Juliocesar burrows MD Age/Sex: 78/M [place] [facility] [place] Status: Signed HPI HPI History of Present Illness Details: Maria Teresa Tavares is a 78-year-old white male here for cardiovascular monitoring. He has a history of underlying CAD status post SVG to OM and status post aortic valve stenosis with aortic valve replacement with a #25 InspirEase bioprosthetic aortic valve (09-01-2019 at [facility]), cardiac ectopy with PACs/PVCs, hyperlipidemia and hypertension. In June 2023 he was diagnosed with paroxysmal atrial fibrillation in his primary care physician's office. He was started on Eliquis at that time. He had a repeat echocardiogram in July 2023 which demonstrated mild concentric LVH, ejection fraction 60%, mild to moderate mitral insufficiency, moderately severe tricuspid insufficiency, RVSP 45 mmHg, bioprosthetic aortic valve functioning normally. Patient reports he is doing fairly well in his home environment. His only symptom is chronic dyspnea on exertion. He gets this was going up and down the stairs in the last week in when it was a high of in the 20s he was out splitting wood with a wood splitter as part of his work with the [employer] service. He noticed that he was short of breath with doing these activities as well. The patient denies any syncope or near syncope denies any chest pains. He denies any significant lower extremity edema. The patient denies any nuisance bleeding from his Eliquis. EKG in office today shows sinus rhythm with a first-degree AV block and frequent PACs. Heart rate is 70 bpm. Intake Vital Signs 09/09/23 08:25 03/13/24 08:48 Height 6 ft 6 ft Weight: 207 lb 217 lb BMI 28.0 29.4 BP 136/78 H 168/87 H Blood Pressure Location Lt brachial Lt brachial Position Sitting Sitting Respiration 18 18 Pulse 66 65 Pulse Source Monitor Monitor Pulse Oximetry (%) 98 95 Oxygen Delivery Method room air Intake Visit Reasons: 6 M Shipper And Receiving Required: No Accompanied by: Self Is patient in pain?: No Allergies No Known Allergies Allergy (Verified 03/13/24 08:48) Medications ???Medication ???Instructions ???Recorded ???Confirmed ???Type atorvastatin 10 mg tablet 10 mg PO QHS 08/15/19 03/13/24 History multivitamin 1 tab PO DAILY 11/16/19 03/13/24 History omeprazole 20 mg capsule,delayed 20 mg PO DAILY 11/16/19 03/13/24 History release tamsulosin 0.4 mg capsule 0.4 mg PO DAILY 12/31/21 03/13/24 History metoprolol succinate 50 mg 50 mg PO DAILY #90 tabs 03/09/22 03/13/24 Rx tablet,extended release 24 hr apixaban 2.5 mg tablet (Eliquis) 2.5 mg PO BID 07/28/23 03/13/24 History lisinopril 5 mg tablet 5 mg PO DAILY #90 tabs 09/13/23 03/13/24 Rx Ejection fraction %: 60 Have you fallen in the past year?: No PFSH Medical History Atrial fibrillation Ventricular ectopy Premature ventricular contraction Atherosclerotic heart disease of [place] coronary artery without angina pectoris Nonrheumatic aortic (valve) stenosis Shortness of breath Abnormal nuclear stress test Secondary pulmonary hypertension Nonrheumatic tricuspid (valve) insufficiency Nonrheumatic mitral (valve) insufficiency Severe aortic stenosis Severe left ventricular hypertrophy Dyspnea on exertion Hiatal hernia BPH (benign prostatic hyperplasia) Essential hypertension Hyperlipidemia Greene's esophagus with esophagitis GERD (gastroesophageal reflux disease) Surgical History S/P aortic valve replacement with bioprosthetic valve (10/03/19) 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) History of right and left heart catheterization (08/28/19) Family History Other CAD (coronary artery disease) Diabetes Hypertension Social History Smoking Status: Former smoker how long ago did patient quit smokin-40 years ago alcohol intake: never substance use type: does not use caffeine: Yes Type: coffee Number of servings: 3 ROS Const Const: Negative for fatigue or weakness ENT ENT: Negative for dizziness or balance problems Cardio Chest Pain: No Palpitations: No Edema: None Muscle aches with walking: None Resp Respiratory: Positive for SOB with activity; Negative for SOB at rest or SOB orthopnea SOB lying down GI GI: Negative nausea, vomiting or heartburn Musc Musc: Negative for muscle weakness or balance problems Neuro Neuro: Negative for dizziness, lightheadedness, near s (more content not included)... Normal [facility] Free PSA/Total PSA [Mass fra ction]Ordered By: Lexi Montes on 03-13-2024 % Free Prostate Specific Ag Calc 15.1 % . [facility] Comment on above: The table below list s the probability of prostate cancer formen with non-suspicious GUNNER results and total PSA between4 and 10 ng/mL, by patient age (Merrick et al, JAMIE 1998,279:1542). % Free PSA 50-64 yr 65-75 yr 0.00-10.00% 56% 55% 10.01-15.00% 24% 35% 15.01-20.00% 17% 23% 20.01-25.00% 10% 20% >25.00% 5% 9%Please note: Merrick et al did not make specific recommendations regarding the use of percent free PSA for any other population of men.Performed at: - [facility] [id number] Director: Estevan Lozoya PhD, Phone: [phone] Free prostate specific antig en (PSA) measurementOrdered By: Lexi Montes on 03-13-2024 Free Prostate Specific Antigen 1.09 ng/mL N/A [facility] Comment on above: Jin ECLIA methodol ogy. PSA, totalOrdered By: Xavier Montes on 03-13-2024 Prostate Specific Ag, Ultra-Sensitv 7.210 ng/mL High 0.000-4.000 [facility] Comment on above: Jin ECLIA methodol ogy.According to the [place] [employer], Serum PSAshould decrease and remain at undetectable levels afterradical prostatectomy. The AUA defines biochemicalrecurrence as an initial PSA value 0.200 ng/mL or greaterfollowed by a subsequent confirmatory PSA value 0.200 ng/mLor greater. Values obtained with different assay methods orkits cannot be used interchangeably. Results cannot beinterpreted as absolute evidence of the presence or absenceof malignant disease. Albumin to globulin ratioOrd ered By: Roberto Carlos Herron on 01-19-2024 Albumin/Globulin [Mass ratio] 0.9 {ratio} 0.9-2.4 [facility] Bilirubin, totalOrdered By: Roberto Carlos Herron on 01-19-2024 Bilirubin [Mass/Vol] 0.60 mg/dL 0.20-1.00 [facility] Comment on above: For patients on eltr ombopag therapy, use of Dimension [place] TBIL is not recommended. Blood urea nitrogen (BUN)/cr eatinine ratioOrdered By: Roberto Carlos Herron on 01-19-2024 Urea nitrogen/Creatinine [Mass ratio] 15.0 mg/mg 12-18 [facility] Carbon dioxide measurementOr dered By: Roberto Carlos Herron on 01-19-2024 CO2 [Moles/Vol] 27.0 mmol/L 21.0-32.0 [facility] Chloride measurementOrdered By: Roberto Carlos Herron on 01-19-2024 Chloride [Moles/Vol] 106 mmol/L 98-107 [facility] Comprehensive Metabolic Prof ilon 01-19-2024 Albumin [Mass/Vol] 3.5 g/dL Normal 3.2-5.0 [facility] Comment on above: Performed By: #### L 500.4050, L500.4100 #### [facility] [place], [place], [address] Albumin/Globulin [Mass ratio] 0.9 {ratio} Normal 0.9-2.4 [facility] Comment on above: Performed By: #### L 500.4050, L500.4100 #### [facility] [address] [place], [address] ALK P 58 U/L Normal 45-117 [facility] Comment on above: Performed By: #### L 500.4050, L500.4100 #### [facility] [address] [place], [address] ALT [Catalytic activity/Vol] 26 U/L Normal 16-61 [facility] Comment on above: Performed By: #### L 500.4050, L500.4100 #### [facility] [address] [place], [address] AST [Catalytic activity/Vol] 18 U/L Normal 15-37 [facility] Comment on above: Performed By: #### L 500.4050, L500.4100 #### [facility] [address] [place], [address] Bilirubin [Mass/Vol] 0.60 mg/dL Normal 0.20-1.00 [facility] Comment on above: Result Comment: For patients on eltrombopag therapy, use of Dimension [place] TBIL is not recommended. Performed By: #### L 500.4050, L500.4100 #### [facility] [address] [place], [address] BUN/CRE 15.0 RATIO Normal 10-20 [facility] Comment on above: Performed By: #### L 500.4050, L500.4100 #### [facility] [address] [place], [address] CA,Total 9.0 mg/dL Normal 8.5-10.1 [facility] Comment on above: Performed By: #### L 500.4050, L500.4100 #### [facility] [address] [place], [address] Chloride [Moles/Vol] 106 mmol/L Normal 98-107 [facility] Comment on above: Performed By: #### L 500.4050, L500.4100 #### [facility] [address] [place], [address] CO2 [Moles/Vol] 27.0 mmol/L Normal 21.0-32.0 [facility] Comment on above: Performed By: #### L 500.4050, L500.4100 #### [facility] [address] [place], [address] Creatinine [Mass/Vol] 0.93 mg/dL Normal 0.70-1.30 [facility] Comment on above: Result Comment: The validity of the calculated GFR GFRAA in patients over 70 years has not been determined. Clinical correlation is essential. Performed By: #### L 500.4050, L500.4100 #### [facility] [address] [place], [address] EST GFR - AA 101 mL/min Normal >60 [facility] Comment on above: Result Comment: Afri can [place] GFR Calc Performed By: #### L 500.4050, L500.4100 #### [facility] [address] [place], [address] GAP 4 Low 5-15 [facility] Comment on above: Performed By: #### L 500.4050, L500.4100 #### [facility] [address] [place], [address] GFR/1.73 sq M.predicted among non-blacks MDRD (S/P/Bld) [Vol rate/Area] 83 mL/min/{1.73_m2} Normal >60 [facility] Comment on above: Result Comment: Non- GFR Calc Performed By: #### L 500.4050, L500.4100 #### [facility] [address] [place], [address] Globulin (S) [Mass/Vol] 3.7 g/dL Normal 2.2-4.2 [facility] Comment on above: Performed By: #### L 500.4050, L500.4100 #### [facility] [address] [place], [address] Glucose [Mass/Vol] 99 mg/dL Normal 74-106 [facility] Comment on above: Performed By: #### L 500.4050, L500.4100 #### [facility] [address] [place], [address] Potassium [Moles/Vol] 4.2 mmol/L Normal 3.5-5.1 [facility] Comment on above: Performed By: #### L 500.4050, L500.4100 #### [facility] [address] [place], [address] Sodium [Moles/Vol] 137 mmol/L Normal 136-145 [facility] Comment on above: Performed By: #### L 500.4050, L500.4100 #### [facility] [address] [place], [address] T PROT 7.2 g/dL Normal 6.4-8.2 [facility] Comment on above: Performed By: #### L 500.4050, L500.4100 #### [facility] [address] [place], [address] Urea nitrogen [Mass/Vol] 14 mg/dL Normal 7-18 [facility] Comment on above: Performed By: #### L 500.4050, L500.4100 #### [facility] [address] [place], [address] Estimated glomerular filtrat ion rate (GFR) AmericanOrdered By: Roberto Carlos Herron on 01-19-2024 Estimated GFR (MDRD) Amer 101 mL/min >60 [facility] Comment on above: GFR Calc Glomerular filtration rate ( GFR) estimationOrdered By: Roberto Carlos Herron on 01-19-2024 Estimated GFR (MDRD) Non-Af Amer 83 mL/min >60 [facility] Comment on above: Non- GFR Calc Glucose measurementOrdered B y: Roberto Carlos Herron on 01-19-2024 Glucose [Mass/Vol] 99 mg/dL 74-106 [facility] High density lipoprotein (HD L) measurementOrdered By: Roberto Carlos Herron on 01-19-2024 Cholesterol in HDL [Mass/Vol] 64 mg/dL >40 [facility] Comment on above: The drugs N-Acetylcy steine and Metamizole may falsely depress this assay. Reference Range HDL <40 mg/dL Low HDL Cholesterol HDL >or= 60 mg/dL High HDL Cholesterol Laboratory - Chemistry and C hemistry - challengeOrdered By: Roberto Carlos Herron on 01-19-2024 AST [Catalytic activity/Vol] 18 U/L 15-37 [facility] Lipid Profileon 01-19-2024 Cholesterol [Mass/Vol] 152 mg/dL Normal 200 [facility] Comment on above: Result Comment: <200 mg/dL Desirable 200-240 mg/dL Borderline >240 mg/dL High Risk Performed By: #### L 500.4050, L500.4100 #### [facility] [address] [place], [address] Cholesterol in HDL [Mass/Vol] 64 mg/dL Normal [facility] Comment on above: Result Comment: The drugs N-Acetylcysteine and Metamizole may falsely depress this assay. Reference Range HDL <40 mg/dL Low HDL Cholesterol HDL >or= 60 mg/dL High HDL Cholesterol Performed By: #### L 500.4050, L500.4100 #### [facility] [address] [place], [address] Cholesterol in LDL [Mass/Vol] 62 mg/dL Normal 0-130 [facility] Comment on above: Performed By: #### L 500.4050, L500.4100 #### [facility] [address] [place], [address] Cholesterol in VLDL [Mass/Vol] 26 mg/dL Normal 5-40 [facility] Comment on above: Performed By: #### L 500.4050, L500.4100 #### [facility] [address] [place], [address] Triglyceride [Mass/Vol] 128 mg/dL Normal [facility] Comment on above: Result Comment: The drugs N-Acetylcysteine and Metamizole may falsely depress this assay. Serum Triglycerides Reference Interval Normal <150 mg/dL Borderline high 150 - 199 mg/dL High 200 - 499 mg/dL Very High > or = 500 mg/dL Performed By: #### L 500.4050, L500.4100 #### [facility] [address] [place], [address] Low density lipoprotein (LDL ) cholesterol measurementOrdered By: Roberto Carlos Herron on 01-19-2024 Cholesterol in LDL [Mass/Vol] 62 mg/dL 0-130 [facility] Potassium measurementOrdered By: Roberto Carlos Herron on 01-19-2024 Potassium [Moles/Vol] 4.2 mmol/L 3.5-5.1 [facility] Serum anion gap measurementO rdered By: Roberto Carlos Herron on 01-19-2024 Anion gap [Moles/Vol] 4 mmol/L Low 5-15 [facility] Serum globulin measurementOr dered By: Roberto Carlos Herron on 01-19-2024 Globulin (S) [Mass/Vol] 3.7 g/dL 2.2-4.2 [facility] Serum or plasma alanine mejía otransferase (ALT) measurementOrdered By: Roberto Carlos Herron on 01-19-2024 ALT [Catalytic activity/Vol] 26 U/L 16-61 [facility] Serum or plasma albumin yue urement (mass/volume)Ordered By: Roberto Carlos Herron on 01-19-2024 Albumin [Mass/Vol] 3.5 g/dL 3.2-5.0 [facility] Serum or plasma alkaline zahida sphatase measurementOrdered By: Roberto Carlos Herron on 01-19-2024 ALP [Catalytic activity/Vol] 58 U/L 45-117 [facility] Serum or plasma calcium yue urement (mass/volume)Ordered By: Roberto Carlos Herron on 01-19-2024 Calcium [Mass/Vol] 9.0 mg/dL 8.5-10.1 [facility] Serum or plasma cholesterol measurement (mass/volume)Ordered By: Roberto Carlos Herron on 01-19-2024 Cholesterol [Mass/Vol] 152 mg/dL <200 [facility] Comment on above: <200 mg/dL Desirable 200-240 mg/dL Borderline >240 mg/dL High Risk Serum or plasma creatinine m easurement (mass/volume)Ordered By: Roberto Carlos Herron on 01-19-2024 Creatinine [Mass/Vol] 0.93 mg/dL 0.70-1.30 [facility] Comment on above: The validity of the calculated GFR & GFRAA in patients over 70 years has not been determined. Clinical correlation is essential. Serum or plasma urea nitroge n measurement (mass/volume)Ordered By: Roberto Carlos Herron on 01-19-2024 Urea nitrogen [Mass/Vol] 14 mg/dL 7-18 [facility] Sodium levelOrdered By: Roberto Carlos Herron on 01-19-2024 Sodium [Moles/Vol] 137 mmol/L 136-145 [facility] Total proteinOrdered By: Deyanira Herron on 01-19-2024 Protein [Mass/Vol] 7.2 g/dL 6.4-8.2 [facility] Triglycerides measurementOrd ered By: Roberto Carlos Herron on 01-19-2024 Triglyceride [Mass/Vol] 128 mg/dL <199 [facility] Comment on above: The drugs N-Acetylcy steine and Metamizole may falsely depress this assay.Serum Triglycerides Reference Interval Normal <150 mg/dL Borderline high 150 - 199 mg/dL High 200 - 499 mg/dL Very High > or = 500 mg/dL Very low density lipoprotein (VLDL) cholesterol measurementOrdered By: Roberto Carlos Herron on 01-19-2024 VLDL Cholesterol 26 mg/dL 5-40 [facility] No Panel InformationOrdered By: TOMAS Ackerman on 09-02-2022 Prostate Specific Antigen Total 5.82 ng/mL 0.0-4.0 [facility] Comment on above: This test was perfor med using the TPSA assay method for the[employer] chemistry system. Values obtained with differentassay methods cannot be used interchangably.When changing PSA assays in the course of monitoring apatient, additional sequential testing should be carriedout to confirm baseline values. Basophil percentageOrdered B y: Dr. Herron on 07-07-2022 Chloride [Moles/Vol] 104 mmol/L 98-107 [facility] Glucose [Mass/Vol] 103 mg/dL 74-106 [facility] Comment on above: Fasting Glucose resu lt from 100 to 125 mg/dL suggests IMPAIRED HOMEOSTASIS per A.D.A. criteria. Potassium [Moles/Vol] 3.9 mmol/L 3.5-5.1 [facility] Sodium [Moles/Vol] 134 mmol/L 136-145 [facility] Laboratory - Chemistry and C hemistry - challengeOrdered By: Dr. Herron on 07-07-2022 CO2 [Moles/Vol] 23.0 mmol/L 21.0-32.0 [facility] Urea nitrogen/Creatinine [Mass ratio] 15.4 mg/mg 10-20 [facility] No Panel InformationOrdered By: Dr. Herron on 07-07-2022 Estimated GFR (MDRD) Amer 96 mL/min >60 [facility] Comment on above: GFR Calc Estimated GFR (MDRD) Non-Af Amer 79 mL/min >60 [facility] Comment on above: Non- GFR Calc Prostate Specific Antigen Total 8.01 ng/mL 0.0-4.0 [facility] Comment on above: This test was perfor med using the TPSA assay method for [facility]. Values obtained with differentassay methods cannot be used interchangably.When changing PSA assays in the course of monitoring apatient, additional sequential testing should be carriedout to confirm baseline values. Serum or plasma calcium yue urement (mass/volume)Ordered By: Dr. Herron on 07-07-2022 Calcium [Mass/Vol] 8.9 mg/dL 8.5-10.1 [facility] Serum or plasma creatinine m easurement (mass/volume)Ordered By: Dr. Herron on 07-07-2022 Creatinine [Mass/Vol] 0.97 mg/dL 0.70-1.30 [facility] Comment on above: The validity of the calculated GFR & GFRAA in patients over 70 years has not been determined. Clinical correlation is essential. Serum or plasma urea nitroge n measurement (mass/volume)Ordered By: Dr. Herron on 07-07-2022 Urea nitrogen [Mass/Vol] 15 mg/dL 7-18 [facility] Thin prep Papanicolaou smear with manual screeningOrdered By: Dr. Herron on 07-07-2022 Thin prep Papanicolaou smear with manual screening 7 5-15 [facility] Basophil percentageon 2021 Bilirubin [Mass/Vol] 0.60 mg/dL 0.20-1.00 [facility] Work Phone: Comment on above: For patients on eltr ombopag therapy, use of Dim[employer] [place] TBIL is not recommended. Chloride [Moles/Vol] 105 mmol/L 98-107 [facility] Work Phone: Cholesterol [Mass/Vol] 149 mg/dL <200 [facility] Work Phone: Comment on above: <200 mg/dL Desirable 200-240 mg/dL Borderline >240 mg/dL High Risk Glucose [Mass/Vol] 101 mg/dL 74-106 [facility] Work Phone: Comment on above: Fasting Glucose resu lt from 100 to 125 mg/dL suggests IMPAIRED HOMEOSTASIS per A.D.A. criteria. Potassium [Moles/Vol] 4.5 mmol/L 3.5-5.1 [facility] Work Phone: Protein [Mass/Vol] 7.3 g/dL 6.4-8.2 [facility] Work Phone: Sodium [Moles/Vol] 137 mmol/L 136-145 [facility] Work Phone: Triglyceride [Mass/Vol] 107 mg/dL <199 [facility] Work Phone: Comment on above: The drugs N-Acetylcy steine and Metamizole may falsely depress this assay.Serum Triglycerides Reference Interval Normal <150 mg/dL Borderline high 150 - 199 mg/dL High 200 - 499 mg/dL Very High > or = 500 mg/dL Laboratory - Chemistry and C hemistry - challengeon 01-07-2022 ALP [Catalytic activity/Vol] 65 U/L 45-117 [facility] Work Phone: ALT [Catalytic activity/Vol] 25 U/L 16-61 [facility] Work Phone: CO2 [Moles/Vol] 27.0 mmol/L 21.0-32.0 [facility] Work Phone: Globulin (S) [Mass/Vol] 3.7 g/dL 2.2-4.2 [facility] Work Phone: Urea nitrogen/Creatinine [Mass ratio] 13.1 mg/mg 10-20 [facility] Work Phone: No Panel Informationon 01-07 Estimated GFR (MDRD) Amer 94 mL/min >60 [facility] Work Phone: Comment on above: GFR Calc Estimated GFR (MDRD) Non-Af Amer 77 mL/min >60 [facility] Work Phone: Comment on above: Non- GFR Calc Prostate Specific Antigen Screen 5.93 ng/mL 0.00-4.00 [facility] Work Phone: Comment on above: This test was perfor med using the TPSA assay method [facility]. Values obtained with differentassay methods cannot be used interchangably.When changing PSA assays in the course of monitoring apatient, additional sequential testing should be carriedout to confirm baseline values. Serum or plasma albumin yue urement (mass/volume)on 01-07-2022 Albumin [Mass/Vol] 3.6 g/dL 3.2-5.0 [facility] Work Phone: Serum or plasma albumin/glob ulin mass ratioon 01-07-2022 Albumin/Globulin [Mass ratio] 1.0 {ratio} 0.9-2.4 [facility] Work Phone: Serum or plasma calcium yue urement (mass/volume)on 01-07-2022 Calcium [Mass/Vol] 8.9 mg/dL 8.5-10.1 [facility] Work Phone: Serum or plasma cholesterol in HDL measurement (mass/volume)on 01-07-2022 Cholesterol in HDL [Mass/Vol] 59 mg/dL >40 [facility] Work Phone: Comment on above: The drugs N-Acetylcy steine and Metamizole may falsely depress this assay. Reference Range HDL <40 mg/dL Low HDL Cholesterol HDL >or= 60 mg/dL High HDL Cholesterol Serum or plasma cholesterol in VLDL measurement (mass/volume)on 01-07-2022 Cholesterol in VLDL [Mass/Vol] 21 mg/dL 5-40 [facility] Work Phone: Serum or plasma creatinine m easurement (mass/volume)on 01-07-2022 Creatinine [Mass/Vol] 0.99 mg/dL 0.70-1.30 [facility] Work Phone: Comment on above: The validity of the calculated GFR & GFRAA in patients over 70 years has not been determined. Clinical correlation is essential. Serum or plasma low density lipoprotein (LDL) cholesterol measurement (mass/volume)on 01-07-2022 Cholesterol in LDL [Mass/Vol] 69 mg/dL 0-130 [facility] Work Phone: Serum or plasma urea nitroge n measurement (mass/volume)on 01-07-2022 Urea nitrogen [Mass/Vol] 13 mg/dL 7-18 [facility] Work Phone: Thin prep Papanicolaou smear with manual screeningon 01-07-2022 Thin prep Papanicolaou smear with manual screening 17 U/L 15-37 [facility] Work Phone: Thin prep Papanicolaou smear with manual screening 5 5-15 [facility] Work Phone: Basophil percentageon 2021 Bilirubin [Mass/Vol] 0.50 mg/dL 0.20-1.00 [facility] Work Phone: Comment on above: For patients on eltr ombopag therapy, use of [employer] [place] TBIL is not recommended. Chloride [Moles/Vol] 105 mmol/L 98-107 [facility] Work Phone: Cholesterol [Mass/Vol] 142 mg/dL <200 [facility] Work Phone: Comment on above: <200 mg/dL Desirable 200-240 mg/dL Borderline >240 mg/dL High Risk Glucose [Mass/Vol] 100 mg/dL 74-106 [facility] Work Phone: Comment on above: Fasting Glucose resu lt from 100 to 125 mg/dL suggests IMPAIRED HOMEOSTASIS per A.D.A. criteria. Potassium [Moles/Vol] 4.4 mmol/L 3.5-5.1 [facility] Work Phone: Protein [Mass/Vol] 6.8 g/dL 6.4-8.2 [facility] Work Phone: Sodium [Moles/Vol] 138 mmol/L 136-145 [facility] Work Phone: Triglyceride [Mass/Vol] 97 mg/dL [facility] Work Phone: Comment on above: The drugs N-Acetylcy steine and Metamizole may falsely depress this assay.Serum Triglycerides Reference Interval Normal <150 mg/dL Borderline high 150 - 199 mg/dL High 200 - 499 mg/dL Very High > or = 500 mg/dL Laboratory - Chemistry and C hemistry - challengeon 07-10-2021 ALP [Catalytic activity/Vol] 61 U/L 45-117 [facility] Work Phone: ALT [Catalytic activity/Vol] 25 U/L 16-61 [facility] Work Phone: CO2 [Moles/Vol] 26.0 mmol/L 21.0-32.0 [facility] Work Phone: Globulin (S) [Mass/Vol] 3.1 g/dL 2.2-4.2 [facility] Work Phone: Urea nitrogen/Creatinine [Mass ratio] 13.5 mg/mg 10-20 [facility] Work Phone: No Panel Informationon 07-10 Estimated GFR (MDRD) Amer 97 mL/min >60 [facility] Work Phone: Comment on above: GFR Calc Estimated GFR (MDRD) Non-Af Amer 80 mL/min >60 [facility] Work Phone: Comment on above: Non- GFR Calc Serum or plasma albumin yue urement (mass/volume)on 07-10-2021 Albumin [Mass/Vol] 3.7 g/dL 3.2-5.0 [facility] Work Phone: Serum or plasma albumin/glob ulin mass ratioon 07-10-2021 Albumin/Globulin [Mass ratio] 1.2 {ratio} 0.9-2.4 [facility] Work Phone: Serum or plasma calcium yue urement (mass/volume)on 07-10-2021 Calcium [Mass/Vol] 8.8 mg/dL 8.5-10.1 [facility] Work Phone: Serum or plasma cholesterol in HDL measurement (mass/volume)on 07-10-2021 Cholesterol in HDL [Mass/Vol] 54 mg/dL [facility] Work Phone: Comment on above: The drugs N-Acetylcy steine and Metamizole may falsely depress this assay. Reference Range HDL <40 mg/dL Low HDL Cholesterol HDL >or= 60 mg/dL High HDL Cholesterol Serum or plasma cholesterol in VLDL measurement (mass/volume)on 07-10-2021 Cholesterol in VLDL [Mass/Vol] 19 mg/dL 5-40 [facility] Work Phone: Serum or plasma creatinine m easurement (mass/volume)on 07-10-2021 Creatinine [Mass/Vol] 0.96 mg/dL 0.70-1.30 [facility] Work Phone: Comment on above: The validity of the calculated GFR & GFRAA in patients over 70 years has not been determined. Clinical correlation is essential. Serum or plasma low density lipoprotein (LDL) cholesterol measurement (mass/volume)on 07-10-2021 Cholesterol in LDL [Mass/Vol] 69 mg/dL 0-130 [facility] Work Phone: Serum or plasma urea nitroge n measurement (mass/volume)on 07-10-2021 Urea nitrogen [Mass/Vol] 13 mg/dL 7-18 [facility] Work Phone: Thin prep Papanicolaou smear with manual screeningon 07-10-2021 Thin prep Papanicolaou smear with manual screening 17 U/L 15-37 [facility] Work Phone: Thin prep Papanicolaou smear with manual screening 7 5-15 [facility] Work Phone: Vital Signs Date Time Vital Sign Value Performing Clinician Faci lity 09-13-2024 09:35-0400 Diastolic blood pressure 82 mm[Hg] Dr. Roberto Carlos Herron MD Work Phone: [facility] 09-13-2024 09:35-0400 Systolic blood pressure 148 mm[Hg] Dr. Roberto Carlos Herron MD Work Phone: [facility] 09-13-2024 07:16-0400 Body mass index (BMI) [Ratio] 29.9 kg/m2 Dr. Roberto Carlos Herron MD Work Phone: [facility] 09-13-2024 07:16-0400 Body weight 100.[address] Roberto Carlos Herron MD Work Phone: [facility] 09-13-2024 07:16-0400 Heart rate 55 /min Dr. Roberto Carlos Herron MD Work Phone: [facility] 09-13-2024 07:16-0400 Respiratory rate 18 /min Dr. Roberto Carlos Herron MD Work Phone: [facility] 09-13-2024 07:16-0400 SaO2% (BldA) [Mass fraction] 99 % Dr. Roberto Carlos Herron MD Work Phone: [phone])406-585786 [place] [address] 03-13-2024 08:48-0500 Body height 182.[address] Roberto Carlos Herron MD Work Phone: 7(891)724-884386 [place] [address] 03-13-2024 08:48-0500 Body mass index (BMI) [Ratio] 29.4 kg/m2 Dr. Roberto Carlos Herron MD Work Phone: 7(825)109-407986 [place] [address] 03-13-2024 08:48-0500 Body weight 98.[address] Roberto Carlos Herron MD Work Phone: 4(023)655-022886 [place] [address] 03-13-2024 08:48-0500 Diastolic blood pressure 87 mm[Hg] Dr. Roberto Carlos Herron MD Work Phone: 1(392)070-564086 [place] [address] 03-13-2024 08:48-0500 Heart rate 65 /min Dr. Roberto Carlos Herron MD Work Phone: 8(288)727-850786 [place] [address] 03-13-2024 08:48-0500 Respiratory rate 18 /min Dr. Roberto Carlos Herron MD Work Phone: 6(561)602-945186 [place] [address] 03-13-2024 08:48-0500 SaO2% (BldA) [Mass fraction] 95 % Dr. Roberto Carlos Herron MD Work Phone: 6(700)318-327886 [place] [address] 03-13-2024 08:48-0500 Systolic blood pressure 168 mm[Hg] Dr. Roberto Carlos Herron MD Work Phone: 3(078)814-948886 [place] [address] 09-04-2022 14:30-0400 Body height 182.[address] Roberto Carlos Herron Work Phone: 7(149)431-117086 [place] [address] 09-04-2022 14:30-0400 Body mass index (BMI) [Ratio] 28.2 kg/m2 Dr. Roberto Carlos Herron Work Phone: [phone])700-784186 [place] [address] 09-04-2022 14:30-0400 Body weight 94.[address] Roberto Carlos Herron Work Phone: 8(893)449-951786 [place] [address] 09-04-2022 14:30-0400 Diastolic blood pressure 76 mm[Hg] Dr. Roberto Carlos Herron Work Phone: 3([phone])398-998686 [place] [address] 09-04-2022 14:30-0400 Heart rate 63 /min Dr. Roberto Carlos Herron Work Phone: [facility] 09-04-2022 14:30-0400 Respiratory rate 16 /min Dr. Roberto Carlos Herron Work Phone: [facility] 09-04-2022 14:30-0400 Systolic blood pressure 141 mm[Hg] Dr. Roberto Carlos Herron Work Phone: [facility] 12-31-2021 13:14-0400 Body height 182.[address] Roberto Carlos Herron Work Phone: [facility] Work Phone: 12-31-2021 13:14-0400 Body mass index (BMI) [Ratio] 28.8 kg/m2 Dr. Roberto Carlos Herron Work Phone: [facility] Work Phone: 12-31-2021 13:14-0400 Body weight 96.[address] Roberto Carlos Herron Work Phone: [facility] Work Phone: 12-31-2021 13:14-0400 Diastolic blood pressure 71 mm[Hg] Dr. Roberto Carlos Herron Work Phone: [facility] Work Phone: 12-31-2021 13:14-0400 Heart rate 60 /min Dr. Roberto Carlos Herron Work Phone: [facility] Work Phone: 12-31-2021 13:14-0400 Respiratory rate 18 /min Dr. Roberto Carlos Herron Work Phone: [facility] Work Phone: 12-31-2021 13:14-0400 SaO2% (BldA) [Mass fraction] 100 % Dr. Roberto Carlos Herron Work Phone: [facility] Work Phone: 12-31-2021 13:14-0400 Systolic blood pressure 155 mm[Hg] Dr. Roberto Carlos Herron Work Phone: [facility] Work Phone: 06-27-2021 13:51-0400 Body height 182.[address] Roberto Carlos Herron Work Phone: [facility] Work Phone: 06-27-2021 13:51-0400 Body mass index (BMI) [Ratio] 29.1 kg/m2 Dr. Roberto Carlos Herron Work Phone: [facility] Work Phone: 06-27-2021 13:51-0400 Body weight 97.[address] Roberto Carlos Herron Work Phone: [facility] Work Phone: 06-27-2021 13:51-0400 Diastolic blood pressure 75 mm[Hg] Dr. Roberto Carlos Herron Work Phone: [facility] Work Phone: 06-27-2021 13:51-0400 Heart rate 73 /min Dr. Roberto Carlos Herron Work Phone: [facility] Work Phone: 06-27-2021 13:51-0400 Respiratory rate 16 /min Dr. Roberto Carlos Herron Work Phone: [facility] Work Phone: 06-27-2021 13:51-0400 Systolic blood pressure 130 mm[Hg] Dr. Roberto Carlos Herron Work Phone: [facility] Work Phone: Encounters Encounter Date Encounter Type Care Provider Facility Start: 10-03-2024 ambulatory Roberto Carlos Herron Facility:[facility] Start: 09-13-2024 End: 09-13-2024 Patient encounter procedure Joshua KILGORE -[facility] Work Phone: Start: 09-13-2024 End: 09-13-[address] Roberto Carlos Herron MD Work Phone: -[facility] Start: 09-04-2024 End: 09-04-[address] Roberto Carlos Herron MD Work Phone: -[facility] Start: 09-04-2024 End: 09-04-[address] Uvaldo Galloway MD -[facility] Work Phone: Start: 09-04-2024 End: 09-04-2024 ambulatory Roberto Carlos Herron Facility:[facility] Start: 07-18-[address] Roberto Carlos Herron MD -[facility] Work Phone: Start: 07-18-2024 ambulatory Roberto Carlos Herron Facility:[facility] Start: 05-01-2024 ambulatory Roberto Carlos Herron Facility:[facility] Start: 05-01-2024 Non-patient / Non-visit Dr. Pieter chanel MD -[facility] Start: 05-01-2024 End: 05-01-[address] Roberto Carlos Herron MD Work Phone: [facility] Work Phone: Start: 05-01-2024 End: 05-01-2024 Patient encounter procedure Kev Garduno NP-[facility] Work Phone: Start: 05-01-2024 End: 05-01-2024 ambulatory Roberto Carlos Herron Facility:[facility] Start: 03-19-[address] Juliocesar burrows MD -[facility] Work Phone: Start: 03-19-2024 ambulatory Juliocesar Copeland Facility :[facility] Start: 03-19-2024 Non-patient / Non-visit Dr. Juliocesar Copeland MD -[facility] Work Phone: Start: 03-13-2024 End: 03-13-[address] Juliocesar Copeland MD -[facility] Work Phone: Start: 03-13-2024 End: 03-13-2024 ambulatory Juliocesar Copeland [place] Start: 03-13-2024 End: 03-13-2024 ambulatory [facility] Facility:[facility] Start: 01-19-2024 End: 01-19-[address] Roberto Carlos Herron MD -[facility] Work Phone: Start: 01-19-2024 End: 01-19-2024 ambulatory Roberto Carlos Herron Facility:[facility] Start: 09-04-2022 End: 09-04-[address] Roberto Carlos Herron Work Phone: [facility] Work Phone: Start: 09-02-2022 End: 09-02-[address] Roberto Carlos Herron Work Phone: [facility] Work Phone: Start: 09-02-2022 End: 09-02-[address] Roberto Carlos Herron Work Phone: [facility] Work Phone: Start: 07-07-2022 End: 07-07-2022 ambulatory [facility] Work Phone: Start: 07-07-2022 End: 07-07-2022 Patient encounter procedure [facility] Start: 01-07-2022 End: 01-07-[address] Roberto Carlos Herron Work Phone: [facility] Work Phone: Start: 01-07-2022 End: 01-07-[address] Roberto Carlos Herron Work Phone: [facility] Start: 12-31-2021 End: 12-31-[address] Roberto Carlos Herron Work Phone: [facility] Start: 07-10-2021 End: 07-10-[address] Roberto Carlos Herron Work Phone: [facility] Start: 06-27-2021 End: 06-27-[address] Roberto Carlos Herron Work Phone: [facility] Procedures Date Procedure Procedure Detail Performing Clinician Start: 09-04-2024 Assay of prostate sp ecific antigen total Dr. Roberto Carlos Herron MD Work Phone: Comment on above: This test was perfor med using the [employer] tPSA method. Measured values of a patient sample can vary depending on the testing procedure used. PSA values determined on patient samples by different testing procedures cannot be used interchangeably. If there is a change in PSA assays while monitoring therapy, sequential testing should be performed to confirm baseline values. Start: 07-18-2024 Assay of prostate sp ecific antigen total Dr. Roberto Carlos Herron MD Work Phone: Comment on above: This test was perfor med using the [employer] tPSA method. Measured values of a patient sample can vary depending on the testing procedure used. PSA values determined on patient samples by different testing procedures cannot be used interchangeably. If there is a change in PSA assays while monitoring therapy, sequential testing should be performed to confirm baseline values. Start: 05-01-2024 Radionuclide imaging of perfusion of myocardium under exercise stress Dr. Roberto Carlos Herron MD Work Phone: Start: 03-13-2024 Evaluation of diagno stic study results Dr. Roberto Carlos Herron MD Work Phone: Start: 10-03-2019 History of coronary artery bypass grafting S/P CABG x 1 Dr. Roberto Carlos Herron Work Phone: Comment on above: SVG to OM1, Bioprost hetic AVR(Inspiris #25) per Dr. Griffin Messina @ [facility] 10/03/2019 Plan of Treatment Date Care Activity Detail Author Start: 09-13-2024 Evaluation of diagno stic study results [facility] Measurement of respi ratory function [facility] Immunizations Immunization Date Immunization Notes Care Provider Fa cility 05-15-2020 Covid (Moderna) Dr. Roberto Carlos pinedo Work Phone: [facility] 04-17-2020 Covid (Moderna) Dr. Roberto Carlos pinedo Work Phone: [facility] Payers Date Payer Category Payer Self-pay [id number] 2024 Unknown [id number] 2009 Medicare [id number] Unknown [id number] Unknown [id number] 2.16.8 [id number] Unknown [id number] 2.16.8 [id number] Unknown [id number] 2.16.8 [id number] Unknown [id number] 2.16.8 [id number] Unknown [id number] 2.16.8 [id number] Unknown [id number] 2.16.8 [id number] Unknown [id number] 2.16.8 [id number] Unknown [id number] 2.16.8 [id number] Unknown [id number] 2.16.8 [id number] Unknown [id number] 2.16.8 [id number] Unknown [id number] Social History Date Type Detail Facility Start: 06-26-2021 End: 09-04-2022 Tobacco smoking status MDIS Unknown if ever smoked [facility] Start: 1945 Sex Assigned At Male [facility] Start: 09-04-2022 [facility] Start: 05-11-2024 Sex Male (finding) [facility] Evaluation note 03-13-2024 Note Date & Type Note Facility 03-13-2024 Evaluation note Diagnosis Onset Date Resolution Atrial fibrillation acute 2024 8:44am Dyspnea on exertion acute 2024 8:44am Atherosclerotic heart disease of [place] coronary artery without angina pectoris chronic March 13 8:44am Essential hypertension chronic Ja nuary 2024 8:44am Hyperlipidemia chronic March 132024 8:44am Nonrheumatic aortic (valve) stenosis resolved March 13, 025 8:44am [facility] Work Phone: Evaluation note 10-03-2019 Note Date & Type Note Facility 10-03-2019 Evaluation note Diagnosis Onset Date Atherosclerotic heart diseas e [place] coronary artery without angina pectoris chronic Essential hypertension chron ic Hyperlipidemia chronic S/P aortic valve replacement with bioprosthetic valve October 03, 2019 chronic Secondary pulmonary hypertension [facility] Work Phone: Evaluation note Note Date & Type Note Facility Evaluation note Diagnosis Onset Date Premature ventricular contraction acute 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 Work Phone: Reason for referral (narrative) Note Date & Type Note Facility Reason for referral (narrative) No reason for referral information available [facility] Work Phone: Chief Complaint and Reason for Visit Chief Complaint 6 M FU Reason for Visit Premature ventricula r contraction Atherosclerotic heart disease [place] coronary artery without angina pectoris Essential hypertension Hyperlipidemia Nonrheumatic mitral (valve) insufficiency Nonrheumatic tricuspid (valve) insufficiency S/P aortic valve replacement with bioprosthetic valve Secondary pulmonary hypertension Chief Complaint E ORDER Chief Complaint E ORDER PREV PFM PT 1 y fu Reason for Visit Atherosclerotic hear t disease of [place] coronary artery without angina pectoris Essential hypertension Hyperlipidemia S/P aortic valve replacement with bioprosthetic valve Secondary pulmonary hypertension Chief Complaint Admit Date FASTING January 19, 2024 8:31am 6 M FU March 13, 2024 8 :44am 30 DAY MONITOR March 19, 2024 7 :00am PAF, SOB March 19, 2024 8 :35am CAD; DYSPNEA; NSVT May 01, 2024 6:52 am CAD; DYSPNEA; NSVT May 01, 2024 11:3 5am Reason for Visit Admit Date Atrial fibrillation March 13, 2024 8 :44am Dyspnea on exertion March 13, 2024 8 :44am Atherosclerotic heart diseas e [place] coronary artery without angina pectoris March 13, 2024 8:44am Essential hypertension March 13 8:44am Hyperlipidemia March 13, 2024 8 :44am Nonrheumatic aortic (valve) stenosis Junior [email or web address] 8:44am Chief Complaint Admit Date EORDERS July 18, 2024 10:02 am PSA September 04, 2024 9:40a m Chief Complaint Admit Date EORDERS July 18, 2024 10:02 am PSA September 04, 2024 9:40a m 6 M FU September 13, 2024 8:50 am Family History No Family History Records Found Relationship Condition Age at Onset Recorded Date/T hermila Not Specified Diabetes mellitus Unknown Coronary artery disease Unknown Hypertension Unknown Advance Directives No Advanced Directives Records Found Advance Directive Response Recorded Date/ Time Advance Directives No August 27 8:03am Living Will No December 03 0 1:27pm Power of Pipe Organ Mechanic Apprentice No December 03 020 1:27pm Advance Directive Response Recorded Date/ Time Advance Directives No August 27 7:03am Living Will No December 03 0 12:27pm Power of Pipe Organ Mechanic Apprentice No December 03 020 12:27pm Advance Directive Response Recorded Date/ Time Advance Directives No August 27 8:03am Summary Purpose Additional Source Comments Goals (unrecognized section and content) Goals may be documented in a n alternate sectionGoals may be documented in an alternate sectionGoals may be documented in an alternate sectionGoals may be documented in an alternate sectionGoals may be documented in an alternate sectionGoals may be documented in an alternate sectionGoals may be documented in an alternate section Care Teams (unrecognized sec tion and content) Team Status: Active Member Role Status Dates Dr. Roberto Carlos Herron MD Family Provider Active Dr. Roberto Carlos Herron MD Primary Care Provider Active Team Status: Inactive Member Role Status Dates Dr. Roberto Carlos Herron MD Primary Care Provi alfredo, Attending Provider, Referring Provider Active Team Status: Inactive Member Role Status Dates Dr. Roberto Carlos Herron MD Primary Care Provider, Referring Provider Active Dr. Jamal Kothari MD Attending Provider Active Team Status: Inactive Member Role Status Dates Dr. Roberto Carlos Herron MD Primary Care Provider Active Eufemia Ackerman GRAILS WEB APPLICATION DEVELOPER-C Attending Provider, Referrin g Provider Active Team Status: Active Member Role Status Dates Dr. Roberto Carlos Herron MD Primary Care Provider Active Team Status: Inactive Member Role Status Dates Dr. Roberto Carlos Herron MD Primary Care Provider Active Start: January 19, 2024 End: January 19, 2024 Dr. Roberto Carlos Herron MD Attending Provider Active Start: January 19, 2024 End: January 19, 2024 Dr. Roberto Carlos Herron MD Referring Provider Active Start: January 19, 2024 End: January 19, 2024 Team Status: Inactive Member Role Status Dates Dr. Roberto Carlos Herron MD Primary Care Provider Active Start: March 13, 2024 End: March 13, 2024 Dr. Roberto Carlos Herron MD Referring Provider Active Start: March 13, 2024 End: March 13, 2024 Dr. Juliocesar Copeland MD Attending Provider Active Start: March 13, 2024 End: March 13, 2024 Team Status: Inactive Member Role Status Dates Dr. Roberto Carlos Herron MD Primary Care Provider Active Start: March 13, 2024 End: March 13, 2024 Lexi Montes Attending Provider Active Start : March 13, 2024 End: March 13, 2024 Lexi Montes Referring Provider Active Start : March 13, 2024 End: March 13, 2024 Team Status: Active Member Role Status Dates Dr. Roberto Carlos Herron MD Primary Care Provider Active Start: March 19, 2024 Dr. Juliocesar Copeland MD Attending Provider Active Start: March 19, 2024 Dr. Juliocesar Copeland MD Referring Provider Active Start: March 19, 2024 Team Status: Inactive Member Role Status Dates Dr. Roberto Carlos Herron MD Primary Care Provider Active Start: May 01, 2024 End: May 01, 2024 Kev Garduno NP, GRAILS WEB APPLICATION DEVELOPER-C Attending Provider Active S tart: May 01, 2024 End: May 01, 2024 Kev Garduno GRAILS WEB APPLICATION DEVELOPER, GRAILS WEB APPLICATION DEVELOPER-C Referring Provider Active S tart: May 01, 2024 End: May 01, 2024 Team Status: Active Member Role Status Dates Dr. Roberto Carlos Herron MD Primary Care Provider Active Start: May 01, 2024 Kev Garduno GRAILS WEB APPLICATION DEVELOPER, GRAILS WEB APPLICATION DEVELOPER-C Referring Provider Active S tart: May 01, 2024 Kev Garduno GRAILS WEB APPLICATION DEVELOPER, GRAILS WEB APPLICATION DEVELOPER-C Other Provider Active Start : May 01, 2024 Dr. Pieter Beyer MD Attending Provider Active Start: May 01, 2024 Team Status: Active Member Role/Relationship Status Dates Dr. Roberto Carlos Herron MD Primary Care Provider Active Team Status: Active Member Role/Relationship Status Dates Dr. Roberto Carlos Herron MD Primary Care Provider Active Start: July 18, 2024 Dr. Roberto Carlos Herron MD Attending Provider Active Start: July 18, 2024 Dr. Roberto Carlos Herron MD Referring Provider Active Start: July 18, 2024 Team Status: Inactive Member Role/Relationship Status Dates Dr. Roberto Carlos Herron MD Primary Care Provider Active Start: September 04, 2024 End: September 04, 2024 Dr. Uvaldo Galloway MD Attending Provider Active Start: September 04, 2024 End: September 04, 2024 Dr. Uvaldo Galloway MD Referring Provider Active Start: September 04, 2024 End: September 04, 2024 Team Status: Inactive Member Role/Relationship Status Dates Dr. Roberto Carlos Herron MD Primary Care Provider Active Start: September 13, 2024 End: September 13, 2024 Dr. Roberto Carlos Herron MD Referring Provider Active Start: September 13, 2024 End: September 13, 2024 JAVIER Rocha Attending Provider Active St art: September 13, 2024 End: September 13, 2024 (unrecognized sect ion and content) No Status Records Found INFORMATION SOURCE (unrecogn ized section and content) DATE CREATED AUTHOR 09/27/2024 [facility] FOR RECORDS PERTAINING TO PATIENTS WHO ARE OR HAVE BEEN ENROLLED IN A CHEMICAL DEPENDENCY/SUBSTANCEABUSE PROGRAM, SOME INFORMATION MAY BE OMITTED. This clinical summary was aggregated from multiple sources. Caution should be exercised in using it in the provision of clinical care. This summary normalizes information from multiple sources, and as a consequence, information in this document may materially change the coding, format and clinical context of patient data. In addition, data may be omitted in some cases. CLINICAL DECISIONS SHOULD BE BASED ON THE PRIMARY CLINICAL RECORDS. [facility] [employer] [facility]. provides no warranty or guarantee of the accuracy or completeness of information in this document.
== END | disposition home or self-care (01) ==
LOC: PSN 10:33
PROVIDERS: PCP Family Medicine; Referring Provider Student in an Organized Health Care Education/Training Program; Visit Provider Student in an Organized Health Care Education/Training Program
DX: R06.00 Dyspnea, unspecified (principal)
CPT/HCPCS: 94060; 94726; 94729

== ENCOUNTER → 2025-01-11 | Outpatient (CLI) | payer MEDICARE, SELFPAY ==
[2020-02-02 08:45] VITALS: BMI 27.9
--- OUTSIDE RECORDS SUMMARY | 2025-01-11 08:30 | XMS RPT_ITS | CCD ---
Author Organization [facility] CliniSyfl Care Team Providers Care Director [employer] Name Role Phone Dr. Roberto Carlos Herron Primary Care Provider [phone] Roberto Carlos Herron Referring Provider Edu KNOCKOUT WORKER, KNOCKOUT WORKER-C Melisa Attending Provider Dr. Roberto Carlos Herron Primary Care Provider Germaine, Dr. Azevedo Referring Provider Dr. Jamal Kothari Attending Provider [phone] Germaine EVANS, Dr. Azevedo Primary Care Provider [phone] Germaine EVANS, Dr. Azevedo Attending Provider Germaine EVANS, Dr. Azevedo Referring Provider [phone] Min EVANS, Dr. Gandara Attending Provider Lexi Montes Attending Provider Lexi Montes Referring Provider Dr. Juliocesar Copeland MD Referring Provider Roof KNOCKOUT WORKER-C, Kev H Attending Provider Roof KNOCKOUT WORKER-C, Kev H Referring Provider Roof KNOCKOUT WORKER-C, Kev H Other Provider Pepito EVANS, Dr. Stapleton Attending Provider Germaine EVANS, Dr. Azevedo Primary Care Provider [phone] Germaine EVANS, Dr. Azevedo Attending Provider Germaine EVANS, Dr. Azevedo Referring Provider Gilmer EVANS, Dr. Uvaldo Young Attending Provider [phone] Gilmer EVANS, Dr. Uvaldo Young Referring Provider Joshua Galloway Attending Provider Joshua Galloway Referring Provider [phone] Juliocesar Copeland Attending Unavailable Herron, Roberto Carlos Primary Care Unavailable Juliocesar Copeland Referring Unavailable Herron, Roberto Carlos Primary Care Unavailable Herron, Roberto Carlos Attending Unavailable Herron, Roberto Carlos Referring Unavailable Min, Juliocesar Referring Unavailable Herron, Roberto Carlos Primary Care Unavailable Min, Juliocesar Attending Unavailable Herron, Roberto Carlos Primary Care Unavailable Joshua James Referring Unavailable Kenny Sutton Attending Unavailable Herron, Roberto Carlos Primary Care Unavailable Roof KNOCKOUT WORKER, Kev Avilez Consulting Unavailable Roof KNOCKOUT WORKER, Kev Avilez Referring Unavailable Pieter Beyer Attending Unavailable Erika, Joshua Attending Unavailable Herron, Roberto Carlos Primary Care Unavailable Uvaldo Galloway Attending Unavailable GilmerUvaldo Referring Unavailable Herron, Roberto Carlos Attending Unavailable Herrno, Roberto Carlos Referring Unavailable Herron, Roberto Carlos Primary Care Unavailable Herron, Roberto Carlos Referring Unavailable Herron, Roberto Carlos Primary Care Unavailable Erika, Joshua Attending Unavailable Min, Juliocesar Attending Unavailable Herron, Roberto Carlos Primary Care Unavailable Herron, Roberto Carlos Referring Unavailable Herron, Roberto Carlos Primary Care Unavailable Roof KNOCKOUT WORKER, Kev Avilez Attending Unavailable Roof KNOCKOUT WORKER, Kev Avilez Referring Unavailable Herron, Roberto Carlos Primary Care Unavailable [place], Lexi Attending Unavailable [place], Lexi Referring Unavailable Medications Current Medications Medication Drug Class(es) Dates Sig (Normalized) Sig (Original) apixaban 2.5 mg oral tablet (4 sources) Factor Xa Inhibitor Start: 07-28-2023 take 1 tablet by mouth twice daily Apixaban (Eliquis) 2.5 mg tablet Active 2.5 mg PO TWICE A DAY July 28, 2023 12:00am atorvastatin 10 mg oral tablet (8 sources) HMG-CoA Reductase Inhibitor Start: 08-15-2019 take [...] DAILY November 15, 2019 11:00pm Multivitamin tablet (4 sources) Start: 11-16-2019 Multivitamin t ablet Active [...] 2:48pm tamsulosin hydrochloride 0.4 mg oral capsule (7 sources) alpha-Adrenergic Jamar Start: 12-31-2021 take 1 capsule by mouth once daily Tamsulosin 0.4 mg capsule Active 0.4 mg PO DAILY December 31, 2021 12:00am Completed/Discontinued Medications Medication Drug Class(es) Dates Sig (Normalized) Sig (Original) 8 hr acetaminophen 650 mg extended release oral tablet (8 sources) Start: 10-12-2019 End: 09-17-2020 take 1 [...] aspirin 81 mg delayed release oral tablet (16 sources) Platelet Aggregation Inhibitor, Nonsteroidal Anti-inflammatory Drug Start: 08-22-2019 End: 07-28-2023 take 1 tablet by mouth once daily Aspirin (Adult Aspirin Regimen) 81 mg tablet,delayed release (DR/EC) Discontinued 81 mg PO DAILY 30 August 22, 2019 3:01pm July 28, 2023 8:59am docusate sodium 50 mg / sennosides, residential 8.6 mg oral tablet (8 sources) Start: 10-12-2019 End: 11-16-2019 Sennosides-Docusate Sodium (Senna-S) 8.6-50 mg tablet Discontinued 1 NMA PO TWICE A DAY as needed October 12, 2019 12:00am November 16, 2019 9:34am furosemide 20 mg oral tablet (8 sources) Loop Diuretic Start: 08-22-2019 End: 10-12-2019 take 1 tablet by mouth once daily Furosemide 20 mg tablet Discontinued 20 mg PO DAILY 28 01August 22, 2019 12:00am October 12, 2019 6:35pm [...] mg tablet Discontinued 10 mg PO DAILY 3 November 10, 2021 1:10pm December 31, 2021 1:38pm magnesium oxide 400 mg oral tablet (8 sources) Start: 11-16-2019 End: 09-17-2020 take 1 [...] 6:34pm warfarin sodium 2.5 mg oral tablet (8 sources) Vitamin K Antagonist Start: 10-12-2019 End: [...] 7:42PM; Coronary atherosclerosis and other heart disease (15 sources) Coronary atherosclerosis; Translations: [Atherosclerotic heart disease of [place] coronary artery without angina pectoris] Onset: 05-02-2024 Chronic Disorders of lipid metabolism (14 sources) Hyperlipidemia; Translations: [Hyperlipidemia, unspecified] Onset: 05-02-2024 Chronic Comment on above: Lipids are managed t hrough the primary service. Given his known atherosclerotic disease targeted LDL should be less than 70. Esophageal disorders (8 sources) Gastroesophageal reflux disease; Translations: [Gastro-esophageal reflux disease without esophagitis] 08-28-2019 Chronic Essential hypertension (14 sources) Essential hypertension; Translations: [Essential (primary) hypertension] Onset: 05-02-2024 Chronic Heart valve disorders (20 sources) History of aortic valve replacement; Translations: [Presence of xenogenic heart valve] Onset: 10-03-2019 Chronic Comment on above: SVG to OM1, Bioprost hetic AVR(Inspiris #25) per Dr. Griffin Messina @ [facility] Main [place] 10/03/2019 patient denies any shortness of breath [...] 09-07-2024 Chronic Other and ill-defined heart disease (8 sources) Cardiomegaly; Translations: [Severe left ventricular hypertrophy] 08-28-2019 Chronic Comment on above: Per echo 08/02/2019 Other lower respiratory disease (10 sources) Dyspnea on exertion; Translations: [Dyspnea, unspecified] 08-28-2019 Episodic Other lower respiratory disease (8 sources) Dyspnea; Translations: [Shortness of breath] 08-28-2019 Episodic Other lower respiratory disease (2 sources) Dyspnea, unspecified; Translations: [Dyspnea, unspecified] Onset: 05-11-2024 Episodic Pulmonary heart disease (12 sources) Secondary pulmonary hypertension; Translations: [Secondary pulmonary [...] conditions (not mental disorders or infectious disease) (9 sources) Thallium stress test abnormal; Translations: [Abnormal result of other cardiovascular function study] Onset: 04-01-2024 08-28-2019 Episodic Comment on above: 08/04/2019 Results Test Name Value Interpretation Reference Range Facility Cardiology Visit Reporton Cardiology Visit Report [facility] 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 Normal [facility] PSA,Total- Diagnosticon 07-0 PSA, DIAGNOSTIC 6.88 ng/mL High 0.00-4.00 [facility] Comment on above: Order Comment: PER P [...] baseline values. Performed By: #### L 501.9940 ####[facility] [address] [place], [place], [id number] Absolute lymphocyte countOrd ered By: Roberto Carlos Herron on 07-18-2024 Lymphocytes Auto (Unsp spec) [#/Vol] 0.99 10*3/uL 0.83-4.51 [facility] Absolute neutrophil countOrd ered By: Roberto Carlos Herron on 07-18-2024 Neutrophils (Bld) [#/Vol] 3.8 10*3/uL 2.0-7.7 [facility] Anion gap in Serum or Plasma Ordered By: Roberto Carlos Herron on 07-18-2024 Anion gap [Moles/Vol] 10 mmol/L - [facility] Automated lymphocyte count a s percentage of total leukocytesOrdered By: Roberto Carlos Herron on 07-18-2024 Lymphocytes/100 WBC Auto (Unsp spec) 18.3 % Low - [facility] BUN/creatinine ratioOrdered By: Roberto Carlos Herron on 07-18-2024 Urea nitrogen/Creatinine [Mass ratio] 16.6 mg/mg - [facility] Basophil percentageOrdered B y: Roberto Carlos Herron on 07-18-2024 Basophils/100 WBC (Bld) 0.7 % 0-1 [facility] Bilirubin, totalOrdered By: Roberto Carlos Herron on 07-18-2024 Bilirubin [Mass/Vol] 0.54 mg/dL 0.00-1.30 [facility] CBC W/Diff, Automatedon 06-30 Absolute Lymph 0.99 X10 3/uL Normal 0.83-4.51 [facility] Comment on above: Order Comment: YUDITH CASTRO STATESN THAT HE WOULD LIKE TO HAVE LABS FROM DR. GARDUNO DONE ALSO Performed By: #### L 501.9520, L100.0100, L506.0400, L501.5200 #### [facility] [address] [place], [address] Absolute Neut 3.8 X10 3/uL Normal 2.0-7.7 [facility] Comment on above: Order Comment: YUDITH CASTRO STATESN THAT HE WOULD LIKE TO HAVE LABS FROM DR. GARDUNO DONE ALSO Performed By: #### L 501.9520, L100.0100, L506.0400, L501.5200 #### [facility] [address] [place], [address] Basophils/100 WBC (Bld) 0.7 % Normal 0-1 [facility] Comment on above: Order Comment: YUDITH CASTRO STATESN THAT HE WOULD LIKE TO HAVE LABS FROM DR. GARDUNO DONE ALSO Performed By: #### L 501.9520, L100.0100, L506.0400, L501.5200 #### [facility] [address] [place], [address] Eosinophils/100 WBC (Bld) 0.0 % Normal 0-5 [facility] Comment on above: Order Comment: YUDITH MATTHEW STATESN THAT HE WOULD LIKE TO HAVE LABS FROM DR. GARDUNO DONE ALSO Performed By: #### L 501.9520, L100.0100, L506.0400, L501.5200 #### [facility] [address] [place], [address] Erythrocyte distribution width (RBC) [Ratio] 12.8 % Normal 11.6-14.6 [facility] Comment on above: Order Comment: YUDITH CASTRO STATESN THAT HE WOULD LIKE TO HAVE LABS FROM DR. GARDUNO DONE ALSO Performed By: #### L 501.9520, L100.0100, L506.0400, L501.5200 #### [facility] [address] [place], [address] Hematocrit (Bld) [Volume fraction] 39.9 % Low 40-54 [facility] Comment on above: Order Comment: YUDITH CASTRO STATESN THAT HE WOULD LIKE TO HAVE LABS FROM DR. GARDUNO DONE ALSO Performed By: #### L 501.9520, L100.0100, L506.0400, L501.5200 #### [facility] [address] [place], [address] Hemoglobin (Bld) [Mass/Vol] 13.4 g/dL Normal 13.0-16.5 [facility] Comment on above: Order Comment: YUDITH CASTRO STATESN THAT HE WOULD LIKE TO HAVE LABS FROM DR. GARDUNO DONE ALSO Performed By: #### L 501.9520, L100.0100, L506.0400, L501.5200 #### [facility] [address] [place], [address] IG% 0.200 Normal 0.0-0.9 [facility] Comment on above: Order Comment: YUDITH CASTRO STATESN THAT HE WOULD LIKE TO HAVE LABS FROM DR. GARDUNO DONE ALSO Result Comment: IG% - Immature Granulocytes (promyelocytes, myelocytes and metamyelocytes) > 1% indicates that a LEFT SHIFT is Present. Performed By: #### L 501.9520, L100.0100, L506.0400, L501.5200 #### [facility] [address] [place], [address] Lymphocytes/100 WBC (Bld) 18.3 % Low 19-41 [facility] Comment on above: Order Comment: YUDITH CASTRO STATESN THAT HE WOULD LIKE TO HAVE LABS FROM DR. GARDUNO DONE ALSO Performed By: #### L 501.9520, L100.0100, L506.0400, L501.5200 #### [facility] [address] [place], [address] MCH (RBC) [Entitic mass] 30.0 pg Normal 27.0-32.0 [facility] Comment on above: Order Comment: YUDITH CASTRO STATESN THAT HE WOULD LIKE TO HAVE LABS FROM DR. GARDUNO DONE ALSO Performed By: #### L 501.9520, L100.0100, L506.0400, L501.5200 #### [facility] [address] [place], [address] MCHC (RBC) [Mass/Vol] 33.6 g/dL Normal 32-36 [facility] Comment on above: Order Comment: YUDITH CASTRO STATESN THAT HE WOULD LIKE TO HAVE LABS FROM DR. GARDUNO DONE ALSO Performed By: #### L 501.9520, L100.0100, L506.0400, L501.5200 #### [facility] [address] [place], [address] MCV (RBC) [Entitic vol] 89.3 fL Normal 80-94 [facility] Comment on above: Order Comment: YUDITH CASTRO STATESN THAT HE WOULD LIKE TO HAVE LABS FROM DR. GARDUNO DONE ALSO Performed By: #### L 501.9520, L100.0100, L506.0400, L501.5200 #### [facility] [address] [place], [address] Monocytes/100 WBC (Bld) 10.4 % High 0-10 [facility] Comment on above: Order Comment: YUDITH CASTRO STATESN THAT HE WOULD LIKE TO HAVE LABS FROM DR. GARDUNO DONE ALSO Performed By: #### L 501.9520, L100.0100, L506.0400, L501.5200 #### [facility] [address] [place], [address] Neutrophils/100 WBC (Bld) 70.4 % High 47-70 [facility] Comment on above: Order Comment: YUDITH CASTRO STATESN THAT HE WOULD LIKE TO HAVE LABS FROM DR. GARDUNO DONE ALSO Performed By: #### L 501.9520, L100.0100, L506.0400, L501.5200 #### [facility] [address] [place], [address] Nucleated RBC (Bld) [#/Vol] 0 10*3/uL Normal 0-5 [facility] Comment on above: Order Comment: YUDITH CASTRO STATESN THAT HE WOULD LIKE TO HAVE LABS FROM DR. GARDUNO DONE ALSO Performed By: #### L 501.9520, L100.0100, L506.0400, L501.5200 #### [facility] [address] [place], [address] Platelet mean volume (Bld) [Entitic vol] 11.7 fL Normal 6.2-12.0 [facility] Comment on above: Order Comment: YUDITH CASTRO STATESN THAT HE WOULD LIKE TO HAVE LABS FROM DR. GARDUNO DONE ALSO Performed By: #### L 501.9520, L100.0100, L506.0400, L501.5200 #### [facility] [address] [place], [address] Platelets (Bld) [#/Vol] 164 10*3/uL Normal 150-450 [facility] Comment on above: Order Comment: YUDITH CASTRO STATESN THAT HE WOULD LIKE TO HAVE LABS FROM DR. GARDUNO DONE ALSO Performed By: #### L 501.9520, L100.0100, L506.0400, L501.5200 #### [facility] [address] [place], [address] RBC (Bld) [#/Vol] 4.47 10*6/uL Low 4.6-6.2 [facility] Comment on above: Order Comment: REGANMyles MATTHEW STATESN THAT HE WOULD LIKE TO HAVE LABS FROM DR. GARDUNO DONE ALSO Performed By: #### L 501.9520, L100.0100, L506.0400, L501.5200 #### [facility] [address] [place], [address] RDW SD 41.8 fl Normal 35.1-43.9 [facility] Comment on above: Order Comment: YUDITH CASTRO STATESN THAT HE WOULD LIKE TO HAVE LABS FROM DR. GARDUNO DONE ALSO Performed By: #### L 501.9520, L100.0100, L506.0400, L501.5200 #### [facility] [address] [place], [address] WBC (Bld) [#/Vol] 5.4 10*3/uL Normal 4.4-11.0 [facility] Comment on above: Order Comment: YUDITH CASTRO STATESN THAT HE WOULD LIKE TO HAVE LABS FROM DR. GARDUNO DONE ALSO Performed By: #### L 501.9520, L100.0100, L506.0400, L501.5200 #### [facility] [address] [place], [address] Absolute Neut Normal 2.0-7.7 [facility] Comment on above: Result Comment: DUPL ICATE Performed By: #### L 100.0100 ####[facility] [address] [place], [address] HCT Normal 40-54 [facility] Comment on above: Result Comment: DUPL ICATE Performed By: #### L 100.0100 ####[facility] [address] [place], [address] HGB Normal 13.0-16.5 [facility] Comment on above: Result Comment: DUPL ICATE Performed By: #### L 100.0100 ####[facility] [address] [place], [address] MCH Normal 27.0-32.0 [facility] Comment on above: Result Comment: DUPL ICATE Performed By: #### L 100.0100 ####[facility] [address] [place], [address] MCHC Normal 32-36 [facility] Comment on above: Result Comment: DUPL ICATE Performed By: #### L 100.0100 ####[facility] [address] [place], [address] MCV Normal 80-94 [facility] Comment on above: Result Comment: DUPL ICATE Performed By: #### L 100.0100 ####[facility] [address] [place], [address] NEUT% Normal 47-70 [facility] Comment on above: Result Comment: DUPL ICATE Performed By: #### L 100.0100 ####[facility] [address] [place], [address] PLT Normal 150-450 [facility] Comment on above: Result Comment: DUPL ICATE Performed By: #### L 100.0100 ####[facility] [address] [place], [address] RBC Normal 4.6-6.2 [facility] Comment on above: Result Comment: DUPL ICATE Performed By: #### L 100.0100 ####[facility] [address] [place], [address] RDW CV Normal 11.6-14.6 [facility] Comment on above: Result Comment: DUPL ICATE Performed By: #### L 100.0100 ####[facility] [address] [place], [address] RDW SD Normal 35.1-43.9 [facility] Comment on above: Result Comment: DUPL ICATE Performed By: #### L 100.0100 ####[facility] [address] [place], [address] WBC Normal 4.4-11.0 [facility] Comment on above: Result Comment: DUPL ICATE Performed By: #### L 100.0100 ####[facility] [address] [place], [address] Calculated very low density lipoprotein (VLDL) cholesterol measurementOrdered By: Roberto Carlos Herron on 07-18-2024 Calculated very low density lipoprotein (VLDL) cholesterol measurement 17 mg/dL 5-40 [facility] Carbon dioxide, total [Moles /volume] in Central venous bloodOrdered By: Roberto Carlos Herron on 07-18-2024 CO2 [Moles/Vol] 21.1 mmol/L 21.0-32.0 [facility] Chloride assayOrdered By: Javier Herron on 07-18-2024 Chloride [Moles/Vol] 103 mmol/L 98-108 [facility] Comprehensive Metabolic Prof ilon 07-18-2024 Albumin [Mass/Vol] 4.0 g/dL Normal 3.4-4.8 [facility] Comment on above: Order Comment: Order Date: 07/17/24Order Info: [id number] - CMPOrder Info: [id number] - LIPIDOrder Info: [id number] - PSAD DR. GALLOWAY GETS RESULTS FOR PSADDR. GERMAINE GETS RESULTS FOR FOR PSAD CMP SHABNAM GETS RESULTSFOR ALL OTHER LABS Performed By: #### L 501.9940, L500.4100, L500.4050 ####[facility] [address] [place], [address] Albumin/Globulin [Mass ratio] 1.4 {ratio} Normal 0.9-2.4 [facility] Comment on above: Order Comment: Order Date: 07/17/24Order Info: [id number] - CMPOrder Info: [id number] - LIPIDOrder Info: [id number] - PSAD DR. GALLOWAY GETS RESULTS FOR PSADDR. GERMAINE GETS RESULTS FOR FOR PSAD CMP ROOF GETS RESULTSFOR ALL OTHER LABS Performed By: #### L 501.9940, L500.4100, L500.4050 ####[facility] [address] [place], [address] ALK PHOS 57 U/L Normal 40-129 [facility] Comment on above: Order Comment: Order Date: 07/17/24Order Info: [id number] - CMPOrder Info: - LIPIDOrder Info: [id number] - PSAD DR. GALLOWAY GETS RESULTS FOR PSADDR. GERMAINE GETS RESULTS FOR FOR PSAD CMP ROOF GETS RESULTSFOR ALL OTHER LABS Performed By: #### L 501.9940, L500.4100, L500.4050 ####[facility] [address] [place], [address] ALT [Catalytic activity/Vol] 17 U/L Normal <=46 [facility] Comment on above: Order Comment: Order Date: 07/17/24Order Info: [id number] - CMPOrder Info: [id number] - LIPIDOrder Info: [id number] - PSAD DR. GALLOWAY GETS RESULTS FOR PSADDR. GERMAINE GETS RESULTS FOR FOR PSAD CMP ROOF GETS RESULTSFOR ALL OTHER LABS Performed By: #### L 501.9940, L500.4100, L500.4050 ####[facility] [address] [place], [address] AST [Catalytic activity/Vol] 21 U/L Normal <=37 [facility] Comment on above: Order Comment: Order Date: 07/17/24Order Info: [id number] - CMPOrder Info: - LIPIDOrder Info: [id number] - PSAD DR. GALLOWAY GETS RESULTS FOR PSADDR. GERMAINE GETS RESULTS FOR FOR PSAD CMP ROOF GETS RESULTSFOR ALL OTHER LABS Performed By: #### L 501.9940, L500.4100, L500.4050 ####[facility] [address] [place], [address] Bilirubin [Mass/Vol] 0.54 mg/dL Normal 0.00-1.30 [facility] Comment on above: Order Comment: Order Date: 07/17/24Order Info: [id number] - CMPOrder Info: - LIPIDOrder Info: [id number] - PSAD DR. GALLOWAY GETS RESULTS FOR PSADDR. GERMAINE GETS RESULTS FOR FOR PSAD CMP ROOF GETS RESULTSFOR ALL OTHER LABS Performed By: #### L 501.9940, L500.4100, L500.4050 ####[facility] [address] [place], [address] BUN/CRE 16.6 RATIO Normal 10-20 [facility] Comment on above: Order Comment: Order Date: 07/17/24Order Info: [id number] - CMPOrder Info: - LIPIDOrder Info: [id number] - PSAD DR. GALLOWAY GETS RESULTS FOR PSADDR. GERMAINE GETS RESULTS FOR FOR PSAD CMP ROOF GETS RESULTSFOR ALL OTHER LABS Performed By: #### L 501.9940, L500.4100, L500.4050 ####[facility] [address] [place], [address] Calcium [Mass/Vol] 8.9 mg/dL Normal 7.6-11.0 [facility] Comment on above: Order Comment: Order Date: 07/17/24Order Info: [id number] - CMPOrder Info: [id number] - LIPIDOrder Info: [id number] - PSAD DR. GALLOWAY GETS RESULTS FOR PSADDR. GERMAINE GETS RESULTS FOR FOR PSAD CMP ROOF GETS RESULTSFOR ALL OTHER LABS Performed By: #### L 501.9940, L500.4100, L500.4050 ####[facility] [address] [place], [address] Chloride [Moles/Vol] 103 mmol/L Normal 98-108 [facility] Comment on above: Order Comment: Order Date: 07/17/24Order Info: [id number] - CMPOrder Info: [id number] - LIPIDOrder Info: [id number] - PSAD DR. GALLOWAY GETS RESULTS FOR PSADDR. GERMAINE GETS RESULTS FOR FOR PSAD CMP ROOF GETS RESULTSFOR ALL OTHER LABS Performed By: #### L 501.9940, L500.4100, L500.4050 ####[facility] [address] [place], [address] CO2 [Moles/Vol] 21.1 mmol/L Normal 21.0-32.0 [facility] Comment on above: Order Comment: Order Date: 07/17/24Order Info: [id number] - CMPOrder Info: - LIPIDOrder Info: [id number] - PSAD DR. GALLOWAY GETS RESULTS FOR PSADDR. GERMAINE GETS RESULTS FOR FOR PSAD CMP ROOF GETS RESULTSFOR ALL OTHER LABS Performed By: #### L 501.9940, L500.4100, L500.4050 ####[facility] [address] [place], [address] Creatinine [Mass/Vol] 0.88 mg/dL Normal 0.70-1.20 [facility] Comment on above: Order Comment: Order Date: 07/17/24Order Info: [id number] - CMPOrder Info: [id number] - LIPIDOrder Info: [id number] - PSAD DR. GALLOWAY GETS RESULTS FOR PSADDR. GERMAINE GETS RESULTS FOR FOR PSAD CMP ROOF GETS RESULTSFOR ALL OTHER LABS Performed By: #### L 501.9940, L500.4100, L500.4050 ####[facility] [address] [place], [address] GAP 10 Normal 5-15 [facility] Comment on above: Order Comment: Order Date: 07/17/24Order Info: 1 - CMPOrder Info: [id number] - LIPIDOrder Info: [id number] - PSAD DR. GALLOWAY GETS RESULTS FOR PSADDR. GERMAINE GETS RESULTS FOR FOR PSAD CMP ROOF GETS RESULTSFOR ALL OTHER LABS Performed By: #### L 501.9940, L500.4100, L500.4050 ####[facility] [address] [place], [address] GFR/1.73 sq M.predicted among non-blacks MDRD (S/P/Bld) [Vol rate/Area] 87 mL/min/{1.73_m2} Normal >60 [facility] Comment on above: Order Comment: Order Date: 07/17/24Order Info: [id number] - CMPOrder Info: [id number] - LIPIDOrder Info: 07 - PSAD DR. GALLOWAY GETS RESULTS FOR PSADDR. GERMAINE GETS RESULTS FOR FOR PSAD CMP ROOF GETS RESULTSFOR ALL OTHER LABS Result Comment: mL/m in/1.73m2 CKD-EPI Creatinine Equation (2020) Performed By: #### L 501.9940, L500.4100, L500.4050 ####[facility] [address] [place], [address] Globulin (S) [Mass/Vol] 2.8 g/dL Normal 2.2-4.2 [facility] Comment on above: Order Comment: Order Date: 07/17/24Order Info: [id number] - CMPOrder Info: [id number] - LIPIDOrder Info: [id number] - PSAD DR. GALLOWAY GETS RESULTS FOR PSADDR. GERMAINE GETS RESULTS FOR FOR PSAD CMP ROOF GETS RESULTSFOR ALL OTHER LABS Performed By: #### L 501.9940, L500.4100, L500.4050 ####[facility] [address] [place], [address] Glucose [Mass/Vol] 102 mg/dL High 70-99 [facility] Comment on above: Order Comment: Order Date: 07/17/24Order Info: [id number] - CMPOrder Info: - LIPIDOrder Info: [id number] - PSAD DR. GALLOWAY GETS RESULTS FOR PSADDR. GERMAINE GETS RESULTS FOR FOR PSAD CMP ROOF GETS RESULTSFOR ALL OTHER LABS Performed By: #### L 501.9940, L500.4100, L500.4050 ####[facility] [address] [place], [address] Potassium [Moles/Vol] 4.0 mmol/L Normal 3.3-5.1 [facility] Comment on above: Order Comment: Order Date: 07/17/24Order Info: [id number] - CMPOrder Info: - LIPIDOrder Info: [id number] - PSAD DR. GALLOWAY GETS RESULTS FOR PSADDR. GERMAINE GETS RESULTS FOR FOR PSAD CMP ROOF GETS RESULTSFOR ALL OTHER LABS Performed By: #### L 501.9940, L500.4100, L500.4050 ####[facility] [address] [place], [address] Sodium [Moles/Vol] 134 mmol/L Normal 133-145 [facility] Comment on above: Order Comment: Order Date: 07/17/24Order Info: [id number] - CMPOrder Info: - LIPIDOrder Info: [id number] - PSAD DR. GALLOWAY GETS RESULTS FOR PSADDR. GERMAINE GETS RESULTS FOR FOR PSAD CMP ROOF GETS RESULTSFOR ALL OTHER LABS Performed By: #### L 501.9940, L500.4100, L500.4050 ####[facility] [address] [place], [address] T PROT 6.8 g/dL Normal 5.9-8.4 [facility] Comment on above: Order Comment: Order Date: 07/17/24Order Info: [id number] - CMPOrder Info: - LIPIDOrder Info: [id number] - PSAD DR. GALLOWAY GETS RESULTS FOR PSADDR. GERMAINE GETS RESULTS FOR FOR PSAD CMP ROOF GETS RESULTSFOR ALL OTHER LABS Performed By: #### L 501.9940, L500.4100, L500.4050 ####[facility] [address] [place], [address] Urea nitrogen [Mass/Vol] 15 mg/dL Normal 4- [facility] Comment on above: Order Comment: Order Date: 07/17/24Order Info: [id number] - CMPOrder Info: [id number] - LIPIDOrder Info: [id number] - PSAD DR. GALLOWAY GETS RESULTS FOR PSADDR. GERMAINE GETS RESULTS FOR FOR PSAD CMP SHABNAM GETS RESULTSFOR ALL OTHER LABS Performed By: #### L 501.9940, L500.4100, L500.4050 ####[facility] [address] [place], [address] Eosinophil percentageOrdered By: Roberto Carlos Herron on 07-18-2024 Eosinophils/100 WBC (Bld) 0.0 % 0-5 [facility] Erythrocyte distribution wid th ratioOrdered By: Roberto Carlos Herron on 07-18-2024 Erythrocyte distribution width (RBC) [Ratio] 12.8 % 11.6-14.6 [facility] Erythrocyte distribution wid th standard deviationOrdered By: Roberto Carlos Herron on 07-18-2024 Erythrocyte distribution width (RBC) [Ratio] 41.8 fl 35.1-43.9 [facility] Glomerular filtration rate ( GFR) estimation/1.73 sq m using serum, plasma, or whole bOrdered By: Roberto Carlos Herron on 07-18-2024 GFR/1.73 sq M.predicted among non-blacks MDRD (S/P/Bld) [Vol rate/Area] 87 mL/min/{1.73_m2} >60 [facility] Comment on above: mL/min/1.73m2 CKD-EP I Creatinine Equation (2020) Hematocrit Auto (Bld) [Volum e fraction]Ordered By: Roberto Carlos Herron on 07-18-2024 Hematocrit (Bld) [Volume fraction] 39.9 % Low 40-54 [facility] Hemoglobin measurementOrdere d By: Roberto Carlos Herron on 07-18-2024 Hemoglobin (Bld) [Mass/Vol] 13.4 g/dL 13.0-16.5 [facility] Immature granulocytes/100 WB C Auto (Bld)Ordered By: Roberto Carlos Herron on 07-18-2024 Immature granulocytes/100 WBC (Bld) 0.200 % 0.0-0.9 [facility] Comment on above: IG% - Immature Granu locytes (promyelocytes, myelocytes and metamyelocytes) > 1% indicates that a LEFT SHIFT is Present. LDL calc ser/plasOrdered By: Roberto Carlos Herron on 07-18-2024 Cholesterol in LDL [Mass/Vol] 62 mg/dL [facility] Comment on above: Dxknuuwaob=436-974 m g/dL & Higher Kigs=225 mg/dL or greater Laboratory - Chemistry and C hemistry - challengeOrdered By: Roberto Carlos Herron on 07-18-2024 AST [Catalytic activity/Vol] 21 U/L <38 [facility] Lipid Profileon 07-18-2024 CHOL:HDL 2.57 Normal [facility] Comment on above: Order Comment: Order Date: 07/17/24Order Info: [id number] - CMPOrder Info: [id number] - LIPIDOrder Info: [id number] - PSAD DR. GALLOWAY GETS RESULTS FOR PSADDR. GERMAINE GETS RESULTS FOR FOR PSAD CMP ROOF GETS RESULTSFOR ALL OTHER LABS Performed By: #### L 501.9940, L500.4100, L500.4050 ####[facility] [address] [place], [place], [address] Cholesterol [Mass/Vol] 129 mg/dL Normal <=200 [facility] Comment on above: Order Comment: Order Date: 07/17/24Order Info: [id number] - CMPOrder Info: [id number] - LIPIDOrder Info: [id number] - PSAD DR. GALLOWAY GETS RESULTS FOR PSADDRKd HERRON GETS RESULTS FOR FOR PSAD CMP ROOF GETS RESULTSFOR ALL OTHER LABS Result Comment: Chol esterol level, Desirable <200 mg/dL Borderline high cholesterol 200-239 mg/dL High cholesterol >=240 mg/dL Recommendations of the NCEP Adult Treatment Panel for the following risk-cutoff thresholds for the [place] population. Performed By: #### L 501.9940, L500.4100, L500.4050 ####[facility] [address] [place], [address] Cholesterol in HDL [Mass/Vol] 50 mg/dL Normal [facility] Comment on above: Order Comment: Order Date: 07/17/24Order Info: [id number] - CMPOrder Info: [id number] - LIPIDOrder Info: [id number] - PSAD DR. [...] Performed By: #### L 501.9940, L500.4100, L500.4050 ####[facility] [address] [place], [address] Cholesterol in LDL [Mass/Vol] 62 mg/dL Normal [facility] Comment on above: Order Comment: Order Date: 07/17/24Order Info: [id number] - CMPOrder Info: - LIPIDOrder Info: [id number] - PSAD DR. GALLOWAY GETS RESULTS FOR PSADDR. GERMAINE GETS RESULTS FOR FOR PSAD CMP ROOF GETS RESULTSFOR ALL OTHER LABS Result Comment: Bord znknnm=026-428 mg/dL Higher Jibj=949 mg/dL or greater Performed By: #### L 501.9940, L500.4100, L500.4050 ####[facility] [address] [place], [address] Cholesterol in VLDL [Mass/Vol] 17 mg/dL Normal 5-40 [facility] Comment on above: Order Comment: Order Date: 07/17/24Order Info: [id number] - CMPOrder Info: - LIPIDOrder Info: [id number] - PSAD DR. GALLOWAY GETS RESULTS FOR PSADDR. GERMAINE GETS RESULTS FOR FOR PSAD CMP ROOF GETS RESULTSFOR ALL OTHER LABS Performed By: #### L 501.9940, L500.4100, L500.4050 ####[facility] [address] [place], [address] Triglyceride [Mass/Vol] 85 mg/dL Normal [facility] Comment on above: Order Comment: Order Date: 07/17/24Order Info: [id number] - CMPOrder Info: [id number] - LIPIDOrder Info: [id number] - PSAD DR. GALLOWAY GETS RESULTS FOR PSADDRKd HERRON GETS RESULTS FOR FOR PSAD CMP ROOF GETS RESULTSFOR ALL OTHER LABS Result Comment: The drugs N-Acetylcysteine and Metamizole may falsely depress this assay. Normal range: <150 mg/dL Borderline High: 150-199 mg/dL High: 200-499 mg/dL Very High: >500 mg/dL Performed By: #### L 501.9940, L500.4100, L500.4050 ####[facility] [address] [place], [address] MCV (mean corpuscular volume ) determinationOrdered By: Roberto Carlos Herron on 07-18-2024 MCV (RBC) [Entitic vol] 89.3 fL 80-94 [facility] Magnesiumon 07-18-2024 Magnesium [Mass/Vol] 2.2 mg/dL Normal 1.5-2.2 [facility] Comment on above: Order Comment: Order Date: 07/17/24 Order Info: [id number] - CMP Order Info: [id number] - LIPID Order Info: [id number] - PSAD DR. GALLOWAY GETS RESULTS FOR PSAD DR. HERRON GETS RESULTS FOR FOR PSAD CMP ROOF GETS RESULTS FOR ALL OTHER LABS Performed By: #### L 501.9520, L100.0100, L506.0400, L501.5200 #### [facility] [address] [place], [address] Magnesium measurement (mass/ volume)Ordered By: Roberto Carlos Herron on 07-18-2024 Magnesium (Unsp spec) [Mass/Vol] 2.2 mg/dL 1.5-2.2 [facility] Mean corpuscular hemoglobin (MCH) determinationOrdered By: Roberto Carlos Herron on 07-18-2024 MCH (RBC) [Entitic mass] 30.0 pg 27.0-32.0 [facility] Mean corpuscular hemoglobin concentration (MCHC) determinationOrdered By: Roberto Carlos Herron on 07-18-2024 MCHC (RBC) [Mass/Vol] 33.6 g/dL 32-36 [facility] Mean platelet volume determi nationOrdered By: Roberto Carlos Herron on 07-18-2024 Platelet mean volume (Bld) [Entitic vol] 11.7 fL 6.2-12.0 [facility] Monocyte percentageOrdered B y: Roberto Carlos Herron on 07-18-2024 Monocytes/100 WBC (Bld) 10.4 % High 0-10 [facility] Neutrophil percentageOrdered By: Roberto Carlos Herron on 07-18-2024 Neutrophils/100 WBC (Bld) 70.4 % High 47-70 [facility] Nucleated red blood cell per centageOrdered By: Roberto Carlos Herron on 07-18-2024 Nucleated RBC/100 WBC (Bld) [Ratio] 0 % 0-5 [facility] PSA,Total- Diagnosticon 06-30 PSA, DIAGNOSTIC 6.22 ng/mL High 0.00-4.00 [facility] Comment on above: Order Comment: Order Date: 07/17/24Order Info: [id number] - CMPOrder Info: [id number] - LIPIDOrder Info: [id number] - PSAD DR. GALLOWAY GETS RESULTS FOR PSADDR. GERMAINE GETS RESULTS FOR FOR PSAD CMP [facility] GETS RESULTSFOR ALL OTHER LABS Result Comment: [...] Performed By: #### L 501.9940, L500.4100, L500.4050 ####[facility] [address] [place], [address] Platelet countOrdered By: Javier Herron on 07-18-2024 Platelets (Bld) [#/Vol] 164 10*3/uL 150-450 [facility] Potassium measurement (mass/ volume)Ordered By: Roberto Carlos Herron on 07-18-2024 Potassium (Unsp spec) [Mass/Vol] 4.0 mmol/L 3.3-5.1 [facility] RBC Auto (Bld) [#/Vol]Ordere d By: Roberto Carlos Herron on 07-18-2024 RBC (Bld) [#/Vol] 4.47 10*6/uL Low 4.6-6.2 [facility] Screening total cholesterol/ high density lipoprotein (HDL) cholesterol ratioOrdered By: Roberto Carlos Herron on 07-18-2024 Cholesterol.total/Shari sterol in HDL [Mass ratio] 2.57 {ratio} [facility] Serum creatinine measurement (mass/volume)Ordered By: Roberto Carlos Herron on 07-18-2024 Creatinine [Mass/Vol] 0.88 mg/dL 0.70-1.20 [facility] Serum globulin measurementOr dered By: Roberto Carlos Herron on 07-18-2024 Globulin (S) [Mass/Vol] 2.8 g/dL 2.2-4.2 [facility] Serum glucose measurement (m ass/volume)Ordered By: Roberto Carlos Herron on 07-18-2024 Glucose [Mass/Vol] 102 mg/dL High 70-99 [facility] Serum or plasma alanine mejía otransferase (ALT) measurementOrdered By: Roberto Carlos Herron on 07-18-2024 ALT [Catalytic activity/Vol] 17 U/L <47 [facility] Serum or plasma albumin yue urement (mass/volume)Ordered By: Roberto Carlos Herron on 07-18-2024 Albumin [Mass/Vol] 4.0 g/dL 3.4-4.8 [facility] Serum or plasma albumin/glob ulin mass ratioOrdered By: Roberto Carlos Herron on 07-18-2024 Albumin/Globulin [Mass ratio] 1.4 {ratio} 0.9-2.4 [facility] Serum or plasma alkaline zahida sphatase measurementOrdered By: Roberto Carlos Herron on 07-18-2024 ALP [Catalytic activity/Vol] 57 U/L 40-129 [facility] Serum or plasma calcium yue urement (mass/volume)Ordered By: Roberto Carlos Herron on 07-18-2024 Calcium [Mass/Vol] 8.9 mg/dL 7.6-11.0 [facility] Serum or plasma cholesterol in HDL measurement (mass/volume)Ordered By: Roberto Carlos Herron on 07-18-2024 Cholesterol in HDL [Mass/Vol] 50 mg/dL >40 [facility] Comment on above: National Cholesterol Education Program (NCEP) guidelines:<40 mg/dL: Low HDL-cholesterol (major risk factor for CHD)>= 60 mg/dL: High HDL-cholesterol (negative risk factor for CHD)HDL-cholesterol is affected by a number of factors, e.g. smoking, exercise, hormones, sex and age. Serum or plasma cholesterol measurement (mass/volume)Ordered By: Roberto Carlos Herron on 07-18-2024 Cholesterol [Mass/Vol] 129 mg/dL <201 [facility] Comment on above: Cholesterol level, D esirable <200 mg/dLBorderline high cholesterol 200-239 mg/dLHigh cholesterol >=240 mg/dLRecommendations of the NCEP Adult Treatment Panel for the following risk-cutoff thresholds for the [place] population. Serum or plasma urea nitroge n measurement (mass/volume)Ordered By: Roberto Carlos Herron on 07-18-2024 Urea nitrogen [Mass/Vol] 15 mg/dL 4-19 [facility] Sodium levelOrdered By: Roberto Carlos Herron on 07-18-2024 Sodium [Moles/Vol] 134 mmol/L 133-145 [facility] T4 Free Directon 07-18-2024 T4 FREE DIRECT 1.20 ng/dL Normal 0.76-1.46 [facility] Comment on above: Order Comment: Order Date: 07/17/24 Order Info: [id number] - CMP Order Info: [id number] - LIPID Order Info: [id number] - PSAD DR. GALLOWAY GETS RESULTS FOR PSAD DR. HERRON GETS RESULTS FOR FOR PSAD CMP ROOF GETS RESULTS FOR ALL OTHER LABS Performed By: #### L 501.9520, L100.0100, L506.0400, L501.5200 #### [facility] [address] [place], [place], [address] T4 freeOrdered By: Roberto Carlos rivera on 07-18-2024 Free T4 [Mass/Vol] 1.20 ng/dL 0.76-1.46 [facility] TSH DL <= 0.005 mIU/L QnOrde red By: Roberto Carlos Herron on 07-18-2024 TSH Qn 2.830 uIU/mL 0.300-4.200 [facility] Thyroid Stim Hormone (TSH)on 07-18-2024 TSH 2.830 uIU/mL Normal 0.300-4.200 [facility] Comment on above: Order Comment: Order Date: 07/17/24 Order Info: [id number] - CMP Order Info: [id number] - LIPID Order Info: [id number] - PSAD DR. GALLOWAY GETS RESULTS FOR PSAD DR. HERRON GETS RESULTS FOR FOR PSAD CMP ROOF GETS RESULTS FOR ALL OTHER LABS Performed By: #### L 501.9520, L100.0100, L506.0400, L501.5200 #### [facility] [address] [place], [place], [address] Total proteinOrdered By: Deyanira Herrno on 07-18-2024 Protein [Mass/Vol] 6.8 g/dL 5.9-8.4 [facility] Triglycerides measurementOrd ered By: Roberto Carlos Herron on 07-18-2024 Triglyceride [Mass/Vol] 85 mg/dL <199 [facility] Comment on above: The drugs N-Acetylcy steine and Metamizole may falsely depress this assay. Normal range: <150 mg/dLBorderline High: 150-199 mg/dLHigh: 200-499 mg/dLVery High: >500 mg/dL White blood cell (WBC) count Ordered By: Roberto Carlos Herron on 07-18-2024 WBC (Bld) [#/Vol] 5.4 10*3/uL 4.4-11.0 [facility] Cardiovascular stress test r eportOrdered By: Pieter Beyer on 05-01-2024 Study report [facility] [address] [place] [address] MR#: [id number] Acct: [id number] Name: MARIA TERESA TAVARES III Rep #: [id number] : 1945 79 From: Pieter Beyer MD Primary Care: Dr. Roberto Carlos Herron MD Status : REG CLI Referring Dr: Kev Garduno NP KNOCKOUT WORKER-C Sex: M C Stress Test Report Date: [...] of 54%. This note was generated with [employer] software. It may contain incorrectwords, spelling, and punctuation that were not noted in checking the note beforesigning. 05/01/241136 Date _ Pieter Beyer MD CC: KNOCKOUT WORKERTad Garduno; Dr. Roberto Carlos Herron MD ~ Date Dictated: 05/01/241134 Date Transcribed: 05/01/241134 Adjusto Writer Operator: DMITRIY Lee [facility] Work Phone: Stress Reporton 05-01-2024 Stress Report [facility] [address] [place] [address] MR#: [id number] Acct: [id number] Name: MARIA TERESA TAVARES III Rep #: [id number] : 1945 79 From: Pieter Beyer MD Primary Care: Dr. Roberto Carlos Herron MD Status: REG CLI Referring Dr: Kev Garduno NP Sex: M C Stress Test Report Date: [...] of 54%. This note was generated with [employer] software. It may contain incorrect words, spelling, and punctuation that were not noted in checking the note before signing. 05/01/247 Date Pieter Beyer MD CC: LISA Garduno; Dr. Roberto Carlos Herron MD Date Dictated: 05/01/241134 Date Transcribed: 05/01/241134 Adjusto Writer Operator: AR Signed Normal [facility] PSA Total+%Freeon 03-14-2024 PSA, FREE 1.09 ng/mL Normal N/A [facility] Comment on above: Result Comment: Ora MEZA methodology. Performed By: #### L 3110.0500 #### [facility] Laboratory [facility] [place] [place], [address] PSA, FREE % 15.1 Normal . [facility] Comment on above: Result Comment: The table [...] any other population of men. Performed at: - [address] [id number] Auto Motor Mechanic: Estevan Lozoya PhD, Phone: [phone] Performed By: #### L 3110.0500 #### [facility] [address] [place], [place], [address] PSA, TOTAL ULTR 7.210 ng/mL Abnormal 0.000-4.000 [facility] Comment on above: Result Comment: Ora bueon ECLIA methodology. According to the [place] [employer], Serum PSA should decrease and [...] disease. Performed By: #### L 3110.0500 #### [facility] [address] [place], [place], [address] 12 Lead E[place] [facility] [place]13-[place]24 12 Lead EKG performed by [facility] [address] [place] [address] 12 Lead EKG performed [place] [facility] [place] 03/13/24 0855 MR#: [id number] Acct: [id number] Name: MARIA TERESA TAVARES CHRISTIAN Rep #: [id number] : 1945 78 From: Juliocesar Copeland MD Attending Dr: Dr. Juliocesar Copeland MD Status: DE P AMB Ordering Dr: Juliocesar Copeland MD Date: 03/13/24 Location: [facility] [place] Sex: M C Admitted[place] [facility] [place]12 Lead [place] [facility] [place] ECG Report Interpretation --Sinus Rhythm -First degree A-V block - frequent PAC s Mitzi = 224 # PACs = 2.BORDERLINE RHYTHMElectronically signed on 03/13/2024 at 10:[address] Juliocesar Conde Software Version 8610 03/13/24 1049 Date Juliocesar Copeland MD CC: Dr. Roberto Carlos Herron MD Date Dictated: 03/13/2455 Date Transcribed: 03/13/24854 Adjusto Writer Operator: Signed Normal [facility] Cardiology Visit Reporton Cardiology Visit Report [facility] [address] [place] [address] OFFICE VISIT Date of Service: 03/13/24 MR#: [id number] Acct: [id number] Name: MARIA TERESA TAVARES III Rep #: [id number] : 1945 Provider: Dr. Juliocesar burrows MD Age/Sex: 78/M [place] [facility] [place] Status: Signed HPI HPI History of Present Illness Details: Maria Teresa Tavares is a 78-year-old white male here for cardiovascular monitoring. He has a history of underlying CAD status post SVG to OM and status post aortic valve stenosis with aortic valve replacement with a #25 InspirEase bioprosthetic aortic valve (09-01-2019 at [facility]), cardiac ectopy with PACs/PVCs, hyperlipidemia and [...] as part of his work with the [employer] service. 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 Normal [facility] Free PSA/Total PSA [Mass fra ction]Ordered By: Lexi Montes on 03-13-2024 % Free Prostate Specific Ag Calc 15.1 % . [facility] Comment on above: The table below list [...] any other population of men.Performed at: - [facility] [id number] Director: Estevan Lozoya PhD, Phone: [phone] Free prostate specific antig en (PSA) measurementOrdered By: Lexi Montes on 03-13-2024 Free Prostate Specific Antigen 1.09 ng/mL N/A [facility] Comment on above: Jin ECLIA methodol ogy. PSA, totalOrdered By: Xavier Montes on 03-13-2024 Prostate Specific Ag, Ultra-Sensitv 7.210 ng/mL High 0.000-4.000 [facility] Comment on above: Jin ECLIA methodol ogy.According to the [place] [employer], Serum PSAshould decrease and remain [...] 01-19-2024 Albumin/Globulin [Mass ratio] 0.9 {ratio} 0.9-2.4 [facility] Bilirubin, totalOrdered By: Roberto Carlos Herron on 01-19-2024 Bilirubin [Mass/Vol] 0.60 mg/dL 0.20-1.00 [facility] Comment on above: For patients on eltr ombopag therapy, use of Dimension [place] TBIL is not recommended. Blood urea nitrogen (BUN)/cr eatinine ratioOrdered By: Roberto Carlos Herron on 01-19-2024 Urea nitrogen/Creatinine [Mass ratio] 15.0 mg/mg - [facility] Carbon dioxide measurementOr dered By: Roberto Carlos Herron on 01-19-2024 CO2 [Moles/Vol] 27.0 mmol/L 21.0-32.0 [facility] Chloride measurementOrdered By: Roberto Carlos Herron on 01-19-2024 Chloride [Moles/Vol] 106 mmol/L 98-107 [facility] Comprehensive Metabolic Prof ilon 01-19-2024 Albumin [Mass/Vol] 3.5 g/dL Normal 3.2-5.0 [facility] Comment on above: Performed By: #### L 500.4050, L500.4100 #### [facility] [address] [place], [address] Albumin/Globulin [Mass ratio] 0.9 {ratio} Normal 0.9-2.4 [facility] Comment on above: Performed By: #### L 500.4050, L500.4100 #### [facility] [address] [place], [address] ALK P 58 U/L Normal 45-117 [facility] Comment on above: Performed By: #### L 500.4050, [id number] #### [facility] [address] [place], [address] ALT [Catalytic activity/Vol] 26 U/L Normal 16-61 [facility] Comment on above: Performed By: #### L [id number], [id number] #### [facility] [address] [place], [address] AST [Catalytic activity/Vol] 18 U/L Normal 15-37 [facility] Comment on above: Performed By: #### L [id number], [id number] #### [facility] [address] [place], [address] Bilirubin [Mass/Vol] 0.60 mg/dL Normal 0.20-1.00 [facility] Comment on above: Result Comment: For patients on eltrombopag therapy, use of Dimension [place] TBIL is not recommended. Performed By: #### L 500.4050, L500.4100 #### [facility] [address] [place], [address] BUN/CRE 15.0 RATIO Normal 10-20 [facility] Comment on above: Performed By: #### L [id number], [id number] #### [facility] [address] [place], [address] CA,Total 9.0 mg/dL Normal 8.5-10.1 [facility] Comment on above: Performed By: #### L [id number], [id number] #### [facility] [address] [place], [address] Chloride [Moles/Vol] 106 mmol/L Normal 98-107 [facility] Comment on above: Performed By: #### L [id number], [id number] #### [facility] [address] [place], [address] CO2 [Moles/Vol] 27.0 mmol/L Normal 21.0-32.0 [facility] Comment on above: Performed By: #### L [id number], [id number] #### [facility] [address] [place], [address] Creatinine [Mass/Vol] 0.93 mg/dL Normal 0.70-1.30 [facility] Comment on above: Result Comment: The validity of the calculated GFR GFRAA in patients over 70 years has not been determined. Clinical correlation is essential. Performed By: #### L 500.4050, L500.4100 #### [facility] [address] [place], [address] EST GFR - AA 101 mL/min Normal >60 [facility] Comment on above: Result Comment: Afri can [place] GFR Calc Performed By: #### L 500.4050, L500.4100 #### [facility] [address] [place], [address] GAP 4 Low 5-15 [facility] Comment on above: Performed By: #### L [id number], [id number] #### [facility] [address] [place], [address] GFR/1.73 sq M.predicted among non-blacks MDRD (S/P/Bld) [Vol rate/Area] 83 mL/min/{1.73_m2} Normal >60 [facility] Comment on above: Result Comment: Non- GFR Calc Performed By: #### L 500.4050, L500.4100 #### [facility] [address] [place], [address] Globulin (S) [Mass/Vol] 3.7 g/dL Normal 2.2-4.2 [facility] Comment on above: Performed By: #### L [id number], [id number] #### [facility] [address] [place], [address] Glucose [Mass/Vol] 99 mg/dL Normal 74-106 [facility] Comment on above: Performed By: #### L [id number], [id number] #### [facility] [address] [place], [address] Potassium [Moles/Vol] 4.2 mmol/L Normal 3.5-5.1 [facility] Comment on above: Performed By: #### L [id number], [id number] #### [facility] [address] [place], [address] Sodium [Moles/Vol] 137 mmol/L Normal 136-145 [facility] Comment on above: Performed By: #### L 500.4050, [id number] #### [facility] [address] [place], [address] T PROT 7.2 g/dL Normal 6.4-8.2 [facility] Comment on above: Performed By: #### L 500.4050, [id number] #### [facility] [address] [place], [address] Urea nitrogen [Mass/Vol] 14 mg/dL Normal 7-18 [facility] Comment on above: Performed By: #### L 500.4050, [id number] #### [facility] [address] [place], [address] Estimated glomerular filtrat ion rate (GFR) AmericanOrdered By: Roberto Carlos Herron on 01-19-2024 Estimated GFR (MDRD) Amer 101 mL/min >60 [facility] Comment on above: GFR Calc Glomerular filtration rate ( GFR) estimationOrdered By: Roberto Carlos Herron on 01-19-2024 Estimated GFR (MDRD) Non-Af Amer 83 mL/min >60 [facility] Comment on above: Non- GFR Calc Glucose measurementOrdered B y: Roberto Carlos Herron on 01-19-2024 Glucose [Mass/Vol] 99 mg/dL 74-106 [facility] High density lipoprotein (HD L) measurementOrdered By: Roberto Carlos Herron on 01-19-2024 Cholesterol in HDL [Mass/Vol] 64 mg/dL >40 [facility] Comment on above: The drugs N-Acetylcy steine and Metamizole may falsely depress this assay. Reference Range HDL <40 mg/dL Low HDL Cholesterol HDL >or= 60 mg/dL High HDL Cholesterol Laboratory - Chemistry and C hemistry - challengeOrdered By: Roberto Carlos Herron on 01-19-2024 AST [Catalytic activity/Vol] 18 U/L 15-37 [facility] Lipid Profileon 01-19-2024 Cholesterol [Mass/Vol] 152 mg/dL Normal 200 [facility] Comment on above: Result Comment: <200 mg/dL Desirable 200-240 mg/dL Borderline >240 mg/dL High Risk Performed By: #### L 500.4050, L500.4100 #### [facility] [address] [place], [address] Cholesterol in HDL [Mass/Vol] 64 mg/dL Normal [facility] Comment on above: Result Comment: The drugs N-Acetylcysteine and Metamizole may falsely depress this assay. Reference Range HDL <40 mg/dL Low HDL Cholesterol HDL >or= 60 mg/dL High HDL Cholesterol Performed By: #### L 500.4050, L500.4100 #### [facility] [address] [place], [address] Cholesterol in LDL [Mass/Vol] 62 mg/dL Normal 0-130 [facility] Comment on above: Performed By: #### L 500.4050, [id number] #### [facility] [address] [place], [place], [address] Cholesterol in VLDL [Mass/Vol] 26 mg/dL Normal 5-40 [facility] Comment on above: Performed By: #### L 500.4050, L500.4100 #### [facility] [address] [place], [address] Triglyceride [Mass/Vol] 128 mg/dL Normal [facility] Comment on above: Result Comment: The drugs N-Acetylcysteine and Metamizole may falsely depress this assay. Serum Triglycerides Reference Interval Normal <150 mg/dL Borderline high 150 - 199 mg/dL High 200 - 499 mg/dL Very High > or = 500 mg/dL Performed By: #### L 500.4050, L500.4100 #### [facility] [address] [place], [address] Low density lipoprotein (LDL ) cholesterol measurementOrdered By: Roberto Carlos Herron on 01-19-2024 Cholesterol in LDL [Mass/Vol] 62 mg/dL 0-130 [facility] Potassium measurementOrdered By: Roberto Carlos Herron on 01-19-2024 Potassium [Moles/Vol] 4.2 mmol/L 3.5-5.1 [facility] Serum anion gap measurementO rdered By: Roberto Carlos Herron on 01-19-2024 Anion gap [Moles/Vol] 4 mmol/L Low 5-15 [facility] Serum globulin measurementOr dered By: Roberto Carlos Herron on 01-19-2024 Globulin (S) [Mass/Vol] 3.7 g/dL 2.2-4.2 [facility] Serum or plasma alanine mejía otransferase (ALT) measurementOrdered By: Roberto Carlos Herron on 01-19-2024 ALT [Catalytic activity/Vol] 26 U/L 16-61 [facility] Serum or plasma albumin yue urement (mass/volume)Ordered By: Roberto Carlos Herron on 01-19-2024 Albumin [Mass/Vol] 3.5 g/dL 3.2-5.0 [facility] Serum or plasma alkaline zahida sphatase measurementOrdered By: Roberto Carlos Herron on 01-19-2024 ALP [Catalytic activity/Vol] 58 U/L 45-117 [facility] Serum or plasma calcium yue urement (mass/volume)Ordered By: Roberto Carlos Herron on 01-19-2024 Calcium [Mass/Vol] 9.0 mg/dL 8.5-10.1 [facility] Serum or plasma cholesterol measurement (mass/volume)Ordered By: Roberto Carlos Herron on 01-19-2024 Cholesterol [Mass/Vol] 152 mg/dL <200 [facility] Comment on above: <200 mg/dL Desirable 200-240 mg/dL Borderline >240 mg/dL High Risk Serum or plasma creatinine m easurement (mass/volume)Ordered By: Roberto Carlos Herron on 01-19-2024 Creatinine [Mass/Vol] 0.93 mg/dL 0.70-1.30 [facility] Comment on above: The validity of the calculated GFR & GFRAA in patients over 70 years has not been determined. Clinical correlation is essential. Serum or plasma urea nitroge n measurement (mass/volume)Ordered By: Roberto Carlos Herron on 01-19-2024 Urea nitrogen [Mass/Vol] 14 mg/dL 7-18 [facility] Sodium levelOrdered By: Roberto Carlos Herron on 01-19-2024 Sodium [Moles/Vol] 137 mmol/L 136-145 [facility] Total proteinOrdered By: Deyanira Herron on 01-19-2024 Protein [Mass/Vol] 7.2 g/dL 6.4-8.2 [facility] Triglycerides measurementOrd ered By: Roberto Carlos Herron on 01-19-2024 Triglyceride [Mass/Vol] 128 mg/dL <199 [facility] Comment on above: The drugs N-Acetylcy steine and Metamizole may falsely depress this assay.Serum Triglycerides Reference Interval Normal <150 mg/dL Borderline high 150 - 199 mg/dL High 200 - 499 mg/dL Very High > or = 500 mg/dL Very low density lipoprotein (VLDL) cholesterol measurementOrdered By: Roberto Carlos Herron on 01-19-2024 VLDL Cholesterol 26 mg/dL 5-40 [facility] No Panel InformationOrdered By: TOMAS Nunouistion on 09-02-2022 Prostate Specific Antigen Total 5.82 ng/mL 0.0-4.0 [facility] Comment on above: This test was perfor med using the TPSA assay method for theDimension chemistry system. Values obtained with differentassay methods cannot be used interchangably.When changing PSA assays in the course of monitoring apatient, additional sequential testing should be carriedout to confirm baseline values. Basophil percentageOrdered B y: Dr. Herron on 07-07-2022 Chloride [Moles/Vol] 104 mmol/L 98-107 [facility] Glucose [Mass/Vol] 103 mg/dL 74-106 [facility] Comment on above: Fasting Glucose resu lt from 100 to 125 mg/dL suggests IMPAIRED HOMEOSTASIS per A.D.A. criteria. Potassium [Moles/Vol] 3.9 mmol/L 3.5-5.1 [facility] Sodium [Moles/Vol] 134 mmol/L 136-145 [facility] Laboratory - Chemistry and C hemistry - challengeOrdered By: Dr. Herron on 07-07-2022 CO2 [Moles/Vol] 23.0 mmol/L 21.0-32.0 [facility] Urea nitrogen/Creatinine [Mass ratio] 15.4 mg/mg 10-20 [facility] No Panel InformationOrdered By: Dr. Herron on 07-07-2022 Estimated GFR (MDRD) Amer 96 mL/min >60 [facility] Comment on above: GFR Calc Estimated GFR (MDRD) Non-Af Amer 79 mL/min >60 [facility] Comment on above: Non- GFR Calc Prostate Specific Antigen Total 8.01 ng/mL 0.0-4.0 [facility] Comment on above: This test was perfor med using the TPSA assay method for [facility] chemistry system. Values obtained with differentassay methods cannot be used interchangably.When changing PSA assays in the course of monitoring apatient, additional sequential testing should be carriedout to confirm baseline values. Serum or plasma calcium yue urement (mass/volume)Ordered By: Dr. Herron on 07-07-2022 Calcium [Mass/Vol] 8.9 mg/dL 8.5-10.1 [facility] Serum or plasma creatinine m easurement (mass/volume)Ordered By: Dr. Herron on 07-07-2022 Creatinine [Mass/Vol] 0.97 mg/dL 0.70-1.30 [facility] Comment on above: The validity of the calculated GFR & GFRAA in patients over 70 years has not been determined. Clinical correlation is essential. Serum or plasma urea nitroge n measurement (mass/volume)Ordered By: Dr. Herron on 07-07-2022 Urea nitrogen [Mass/Vol] 15 mg/dL 09-15 [facility] Thin prep Papanicolaou smear with manual screeningOrdered By: Dr. Herron on 07-07-2022 Thin prep Papanicolaou smear with manual screening 7 07-13 [facility] Basophil percentageon 2021 Bilirubin [Mass/Vol] 0.60 mg/dL 0.20-1.00 [facility] Work Phone: Comment on above: For patients on eltr ombopag therapy, use of Dimension [place] TBIL is not recommended. Chloride [Moles/Vol] 105 mmol/L 98-107 [facility] Work Phone: Cholesterol [Mass/Vol] 149 mg/dL <200 [facility] Work Phone: Comment on above: <200 mg/dL Desirable 200-240 mg/dL Borderline >240 mg/dL High Risk Glucose [Mass/Vol] 101 mg/dL 74-106 [facility] Work Phone: Comment on above: Fasting Glucose resu lt from 100 to 125 mg/dL suggests IMPAIRED HOMEOSTASIS per A.D.A. criteria. Potassium [Moles/Vol] 4.5 mmol/L 3.5-5.1 [facility] Work Phone: Protein [Mass/Vol] 7.3 g/dL 6.4-8.2 [facility] Work Phone: Sodium [Moles/Vol] 137 mmol/L 136-145 [facility] Work Phone: Triglyceride [Mass/Vol] 107 mg/dL <199 [facility] Work Phone: Comment on above: The drugs N-Acetylcy steine and Metamizole may falsely depress this assay.Serum Triglycerides Reference Interval Normal <150 mg/dL Borderline high 150 - 199 mg/dL High 200 - 499 mg/dL Very High > or = 500 mg/dL Laboratory - Chemistry and C hemistry - challengeon 01-07-2022 ALP [Catalytic activity/Vol] 65 U/L 45-117 [facility] Work Phone: ALT [Catalytic activity/Vol] 25 U/L 16-61 [facility] Work Phone: CO2 [Moles/Vol] 27.0 mmol/L 21.0-32.0 [facility] Work Phone: Globulin (S) [Mass/Vol] 3.7 g/dL 2.2-4.2 [facility] Work Phone: Urea nitrogen/Creatinine [Mass ratio] 13.1 mg/mg 10-20 [facility] Work Phone: No Panel Informationon 01-07 Estimated GFR (MDRD) Amer 94 mL/min >60 [facility] Work Phone: Comment on above: GFR Calc Estimated GFR (MDRD) Non-Af Amer 77 mL/min >60 [facility] Work Phone: Comment on above: Non- GFR Calc Prostate Specific Antigen Screen 5.93 ng/mL 0.00-4.00 [facility] Work Phone: Comment on above: This test was perfor med using the TPSA assay method for the[employer] chemistry system. Values obtained with differentassay methods cannot be used interchangably.When changing PSA assays in the course of monitoring apatient, additional sequential testing should be carriedout to confirm baseline values. Serum or plasma albumin yue urement (mass/volume)on 01-07-2022 Albumin [Mass/Vol] 3.6 g/dL 3.2-5.0 [facility] Work Phone: Serum or plasma albumin/glob ulin mass ratioon 01-07-2022 Albumin/Globulin [Mass ratio] 1.0 {ratio} 0.9-2.4 [facility] Work Phone: Serum or plasma calcium yue urement (mass/volume)on 01-07-2022 Calcium [Mass/Vol] 8.9 mg/dL 8.5-10.1 [facility] Work Phone: Serum or plasma cholesterol in HDL measurement (mass/volume)on 01-07-2022 Cholesterol in HDL [Mass/Vol] 59 mg/dL >40 [facility] Work Phone: Comment on above: The drugs N-Acetylcy steine and Metamizole may falsely depress this assay. Reference Range HDL <40 mg/dL Low HDL Cholesterol HDL >or= 60 mg/dL High HDL Cholesterol Serum or plasma cholesterol in VLDL measurement (mass/volume)on 01-07-2022 Cholesterol in VLDL [Mass/Vol] 21 mg/dL 5-40 [facility] Work Phone: Serum or plasma creatinine m easurement (mass/volume)on 01-07-2022 Creatinine [Mass/Vol] 0.99 mg/dL 0.70-1.30 [facility] Work Phone: Comment on above: The validity of the calculated GFR & GFRAA in patients over 70 years has not been determined. Clinical correlation is essential. Serum or plasma low density lipoprotein (LDL) cholesterol measurement (mass/volume)on 01-07-2022 Cholesterol in LDL [Mass/Vol] 69 mg/dL 0-130 [facility] Work Phone: Serum or plasma urea nitroge n measurement (mass/volume)on 01-07-2022 Urea nitrogen [Mass/Vol] 13 mg/dL 7-18 [facility] Work Phone: Thin prep Papanicolaou smear with manual screeningon 01-07-2022 Thin prep Papanicolaou smear with manual screening 17 U/L 15-37 [facility] Work Phone: Thin prep Papanicolaou smear with manual screening 5 5-15 [facility] Work Phone: Basophil percentageon 2021 Bilirubin [Mass/Vol] 0.50 mg/dL 0.20-1.00 [facility] Work Phone: Comment on above: For patients on eltr ombopag therapy, use of Dimension [place] TBIL is not recommended. Chloride [Moles/Vol] 105 mmol/L 98-107 [facility] Work Phone: Cholesterol [Mass/Vol] 142 mg/dL <200 [facility] Work Phone: Comment on above: <200 mg/dL Desirable 200-240 mg/dL Borderline >240 mg/dL High Risk Glucose [Mass/Vol] 100 mg/dL 74-106 [facility] Work Phone: Comment on above: Fasting Glucose resu lt from 100 to 125 mg/dL suggests IMPAIRED HOMEOSTASIS per A.D.A. criteria. Potassium [Moles/Vol] 4.4 mmol/L 3.5-5.1 [facility] Work Phone: Protein [Mass/Vol] 6.8 g/dL 6.4-8.2 [facility] Work Phone: Sodium [Moles/Vol] 138 mmol/L 136-145 [facility] Work Phone: Triglyceride [Mass/Vol] 97 mg/dL [facility] Work Phone: Comment on above: The drugs N-Acetylcy steine and Metamizole may falsely depress this assay.Serum Triglycerides Reference Interval Normal <150 mg/dL Borderline high 150 - 199 mg/dL High 200 - 499 mg/dL Very High > or = 500 mg/dL Laboratory - Chemistry and C hemistry - challengeon 07-10-2021 ALP [Catalytic activity/Vol] 61 U/L 45-117 [facility] Work Phone: ALT [Catalytic activity/Vol] 25 U/L 16-61 [facility] Work Phone: CO2 [Moles/Vol] 26.0 mmol/L 21.0-32.0 [facility] Work Phone: Globulin (S) [Mass/Vol] 3.1 g/dL 2.2-4.2 [facility] Work Phone: Urea nitrogen/Creatinine [Mass ratio] 13.5 mg/mg 10-20 [facility] Work Phone: No Panel Informationon 07-10 Estimated GFR (MDRD) Amer 97 mL/min >60 [facility] Work Phone: Comment on above: GFR Calc Estimated GFR (MDRD) Non-Af Amer 80 mL/min >60 [facility] Work Phone: Comment on above: Non- GFR Calc Serum or plasma albumin yue urement (mass/volume)on 07-10-2021 Albumin [Mass/Vol] 3.7 g/dL 3.2-5.0 [facility] Work Phone: Serum or plasma albumin/glob ulin mass ratioon 07-10-2021 Albumin/Globulin [Mass ratio] 1.2 {ratio} 0.9-2.4 [facility] Work Phone: Serum or plasma calcium yue urement (mass/volume)on 07-10-2021 Calcium [Mass/Vol] 8.8 mg/dL 8.5-10.1 [facility] Work Phone: Serum or plasma cholesterol in HDL measurement (mass/volume)on 07-10-2021 Cholesterol in HDL [Mass/Vol] 54 mg/dL [facility] Work Phone: Comment on above: The drugs N-Acetylcy steine and Metamizole may falsely depress this assay. Reference Range HDL <40 mg/dL Low HDL Cholesterol HDL >or= 60 mg/dL High HDL Cholesterol Serum or plasma cholesterol in VLDL measurement (mass/volume)on 07-10-2021 Cholesterol in VLDL [Mass/Vol] 19 mg/dL 5-40 [facility] Work Phone: Serum or plasma creatinine m easurement (mass/volume)on 07-10-2021 Creatinine [Mass/Vol] 0.96 mg/dL 0.70-1.30 [facility] Work Phone: Comment on above: The validity of the calculated GFR & GFRAA in patients over 70 years has not been determined. Clinical correlation is essential. Serum or plasma low density lipoprotein (LDL) cholesterol measurement (mass/volume)on 07-10-2021 Cholesterol in LDL [Mass/Vol] 69 mg/dL 0-130 [facility] Work Phone: Serum or plasma urea nitroge n measurement (mass/volume)on 07-10-2021 Urea nitrogen [Mass/Vol] 13 mg/dL 7-18 [facility] Work Phone: Thin prep Papanicolaou smear with manual screeningon 07-10-2021 Thin prep Papanicolaou smear with manual screening 17 U/L 15-37 [facility] Work Phone: Thin prep Papanicolaou smear with manual screening 7 5-15 [facility] Work Phone: Vital Signs Date Time Vital Sign Value Performing Clinician Faci lity 09-13-2024 09:35-0400 Diastolic blood pressure 82 mm[Hg] Dr. Roberto Carlos Herron MD Work Phone: [facility] 09-13-2024 09:35-0400 Systolic blood pressure 148 mm[Hg] Dr. Roberto Carlos Herron MD Work Phone: [facility] 09-13-2024 07:16-0400 Body mass index (BMI) [Ratio] 29.9 kg/m2 Dr. Roberto Carlos Herron MD Work Phone: [facility] 09-13-2024 07:16-0400 Body weight 100.[address] Roberto Carlos Herron MD Work Phone: [facility] 09-13-2024 07:16-0400 Heart rate 55 /min Dr. Roberto Carlos Herron MD Work Phone: [facility] 09-13-2024 07:16-0400 Respiratory rate 18 /min Dr. Roberto Carlos Herron MD Work Phone: [facility] 09-13-2024 07:16-0400 SaO2% (BldA) [Mass fraction] 99 % Dr. Roberto Carlos Herron MD Work Phone: 1(565)358-554163 [place] [address] 03-13-2024 08:48-0500 Body height 182.[address] Roberto Carlos Herron MD Work Phone: 2(622)246-500723 [place] [address] 03-13-2024 08:48-0500 Body mass index (BMI) [Ratio] 29.4 kg/m2 Dr. Roberto Carlos Herron MD Work Phone: 5(744)498-471723 [place] [address] 03-13-2024 08:48-0500 Body weight 98.[address] Roberto Carlos Herron MD Work Phone: 5(832)089-278123 [place] [address] 03-13-2024 08:48-0500 Diastolic blood pressure 87 mm[Hg] Dr. Roberto Carlos Herron MD Work Phone: 1(412)416-904723 [place] [address] 03-13-2024 08:48-0500 Heart rate 65 /min Dr. Roberto Carlos Herron MD Work Phone: 9(884)762-960523 [place] [address] 03-13-2024 08:48-0500 Respiratory rate 18 /min Dr. Roberto Carlos Herron MD Work Phone: 2(096)456-822023 [place] [address] 03-13-2024 08:48-0500 SaO2% (BldA) [Mass fraction] 95 % Dr. Roberto Carlos Herron MD Work Phone: [phone])175-334223 [place] [address] 03-13-2024 08:48-0500 Systolic blood pressure 168 mm[Hg] Dr. Roberto Carlos Herron MD Work Phone: 9(236)474-983223 [place] [address] 09-04-2022 14:30-0400 Body height 182.[address] Roberto Carlos Herron Work Phone: 0(486)108-153523 [place] [address] 09-04-2022 14:30-0400 Body mass index (BMI) [Ratio] 28.2 kg/m2 Dr. Roberto Carlos Herron Work Phone: 4([phone])357-753923 [place] [address] 09-04-2022 14:30-0400 Body weight 94.[address] Roberto Carlos Herron Work Phone: 4([phone])920-938023 [place] [address] 09-04-2022 14:30-0400 Diastolic blood pressure 76 mm[Hg] Dr. Roberto Carlos Herron Work Phone: [facility] 09-04-2022 14:30-0400 Heart rate 63 /min Dr. Roberto Carlos Herron Work Phone: [facility] 09-04-2022 14:30-0400 Respiratory rate 16 /min Dr. Roberto Carlos Herron Work Phone: [facility] 09-04-2022 14:30-0400 Systolic blood pressure 141 mm[Hg] Dr. Roberto Carlos Herron Work Phone: [facility] 12-31-2021 13:14-0400 Body height 182.[address] Roberto Carlos Herron Work Phone: [facility] Work Phone: 12-31-2021 13:14-0400 Body mass index (BMI) [Ratio] 28.8 kg/m2 Dr. Roberto Carlos Herron Work Phone: [facility] Work Phone: 12-31-2021 13:14-0400 Body weight 96.[address] Roberto Carlos Herron Work Phone: [facility] Work Phone: 12-31-2021 13:14-0400 Diastolic blood pressure 71 mm[Hg] Dr. Roberto Carlos Herron Work Phone: [facility] Work Phone: 12-31-2021 13:14-0400 Heart rate 60 /min Dr. Roberto Carlos Herron Work Phone: [facility] Work Phone: 12-31-2021 13:14-0400 Respiratory rate 18 /min Dr. Roberto Carlos Herron Work Phone: [facility] Work Phone: 12-31-2021 13:14-0400 SaO2% (BldA) [Mass fraction] 100 % Dr. Roberto Carlos Herron Work Phone: [facility] Work Phone: 12-31-2021 13:14-0400 Systolic blood pressure 155 mm[Hg] Dr. Roberto Carlos Herron Work Phone: [facility] Work Phone: 06-27-2021 13:51-0400 Body height 182.[address] Roberto Carlos Herron Work Phone: [facility] Work Phone: 06-27-2021 13:51-0400 Body mass index (BMI) [Ratio] 29.1 kg/m2 Dr. Roberto Carlos Herron Work Phone: [facility] Work Phone: 06-27-2021 13:51-0400 Body weight 97.[address] Roberto Carlos Herron Work Phone: [facility] Work Phone: 06-27-2021 13:51-0400 Diastolic blood pressure 75 mm[Hg] Dr. Roberto Carlos Herron Work Phone: [facility] Work Phone: 06-27-2021 13:51-0400 Heart rate 73 /min Dr. Roberto Carlos Herron Work Phone: [facility] Work Phone: 06-27-2021 13:51-0400 Respiratory rate 16 /min Dr. Roberto Carlos Herron Work Phone: [facility] Work Phone: 06-27-2021 13:51-0400 Systolic blood pressure 130 mm[Hg] Dr. Roberto Carlos Herron Work Phone: [facility] Work Phone: Encounters Encounter Date Encounter Type Care Provider Facility Start: 10-03-2024 End: 10-03-[address] Roberto Carlos Herron MD Work Phone: -Pulmonary Services/Neurology Start: 10-03-2024 End: 10-03-2024 Patient encounter procedure Joshua KILGORE -Pulmonary Services/Neurology Work Phone: Start: 10-03-2024 End: 10-03-2024 ambulatory Roberto Carlos Herron Facility:[facility] Start: 09-13-2024 End: 09-13-2024 Patient encounter procedure Joshua KILGORE -[facility] Work Phone: Start: 09-13-2024 End: 09-13-[address] Roberto Carlos Herron MD Work Phone: -[facility] Start: 09-04-2024 End: 09-04-[address] Roberto Carlos Herron MD Work Phone: -[facility] Start: 09-04-2024 End: 09-04-[address] Uvaldo Galloway MD -[facility] Work Phone: Start: 09-04-2024 End: 09-04-2024 ambulatory Roberto Carlos Herron Facility:[facility] Start: 07-18-[address] Roberto Carlos Herron MD -[facility] Work Phone: Start: 07-18-2024 ambulatory Roberto Carlos Herron Facility:[facility] Start: 05-01-2024 ambulatory Roberto Carlos Herron Facility:[facility] Start: 05-01-2024 Non-patient / Non-visit Dr. Pieter chanel MD -[facility] Start: 05-01-2024 End: 05-01-[address] Roberto Carlos Herron MD Work Phone: [facility] Work Phone: Start: 05-01-2024 End: 05-01-2024 Patient encounter procedure Kev GONZALEZ -Cardiovascular Services Work Phone: Start: 05-01-2024 End: 05-01-2024 ambulatory Roberto Carlos Herron Facility:[facility] Start: 03-19-[address] Juliocesar burrows MD -Cardiovascular Services Work Phone: Start: 03-19-2024 ambulatory Juliocesar Copeland Facility :[facility] Start: 03-19-2024 Non-patient / Non-visit Dr. Juliocesar Copeland MD -[facility] Work Phone: Start: 03-13-2024 End: 03-13-[address] Juliocesar Copeland MD -[facility] Work Phone: Start: 03-13-2024 End: 03-13-2024 ambulatory Juliocesar Copeland [place] [place]: 03-13-2024 End: 03-13-2024 ambulatory Roberto Carlos Herron Facility:[facility] Start: 01-19-2024 End: 01-19-[address] Roberto Carlos Herron MD -[facility] Work Phone: Start: 01-19-2024 End: 01-19-2024 ambulatory Roberto Carlos Herron Facility:[facility] Start: 09-04-2022 End: 09-04-[address] Roberto Carlos Herron Work Phone: [facility] Work Phone: Start: 09-02-2022 End: 09-02-[address] Roberto Carlos Herron Work Phone: [facility] Work Phone: Start: 09-02-2022 End: 09-02-[address] Roberto Carlos Herron Work Phone: [facility] Work Phone: Start: 07-07-2022 End: 07-07-2022 ambulatory [facility] Work Phone: Start: 07-07-2022 End: 07-07-2022 Patient encounter procedure [facility] Start: 01-07-2022 End: 01-07-[address] Roberto Carlos Herron Work Phone: [facility] Work Phone: Start: 01-07-2022 End: 01-07-[address] Roberto Carlos Herron Work Phone: [facility] Start: 12-31-2021 End: 12-31-[address] Roberto Carlos Herron Work Phone: [facility] Start: 07-10-2021 End: 07-10-[address] Roberto Carlos Herron Work Phone: [facility] Start: 06-27-2021 End: 06-27-[address] Roberto Carlos Herron Work Phone: [facility] Procedures Date Procedure Procedure Detail Performing Clinician [...] AVR(Inspiris #25) per Dr. Griffin Messina @ [facility] 10/03/2019 Plan of Treatment Date Care Activity Detail Author Start: 09-13-2024 Evaluation of diagno stic study results [facility] Measurement of respi ratory function [facility] Immunizations Immunization Date Immunization Notes Care Provider Fa cility 05-15-2020 Covid (Vikas) Dr. Roberto Carlos pinedo Work Phone: [facility] 04-17-2020 Covid (Vikas) Dr. Roberto Carlos pinedo Work Phone: [facility] Payers Date Payer Category Payer Self-pay [id number] 2024 Unknown [id number] 2009 Medicare [id number] Unknown [id number] Unknown [id number] 2.16.8 [id number] Unknown [id number] 2.16.8 [id number] Unknown [id number] 2.16.8 [id number] Unknown [id number] 2.16.8 [id number] Unknown [id number] 2.16.8 [id number] Unknown [id number] 2.16.8 [id number] Unknown [id number] 2.16.8 [id number] Unknown [id number] 2.16.8 [id number] Unknown [id number] 2.16.8 [id number] Unknown [id number] 2.16.8 [id number] Unknown [id number] 2.16.8 [id number] Unknown [id number] 2.16.8 [id number] Social History Date Type Detail Facility Start: 06-26-2021 End: 09-04-2022 Tobacco smoking status INIS Unknown if ever smoked [facility] Start: 1945 Sex Assigned At Male [facility] Start: 09-04-2022 [facility] Start: 05-11-2024 Sex Male (finding) [facility] Evaluation note 09-13-2024 Note Date & Type Note Facility 09-13-2024 Evaluation note Diagnosis Onset Date Resolution Atherosclerotic heart disease of [place] coronary artery without angina pectoris chronic September 13, 2024 8:50am Atrial fibrillation chronic September 13, 2024 8:50am Dyspnea on exertion chronic September 13, 2024 8:50am Essential hypertension chronic September 13, 2024 8:50am Hyperlipidemia chronic September 13, 2024 8:50am Nonrheumatic mitral (valve) insufficiency chronic September 13, 2024 8:50am Nonrheumatic tricuspid (valve) insufficiency chronic September 13, 2024 8:50am NSVT (nonsustained ventricular tachycardia) chronic September 13, 2024 8:50am S/P aortic valve replacement with bioprosthetic valve October 03, 2019 chronic September 13, 2024 8:50am Secondary pulmonary hypertension chronic September 13, 2024 8:50am Nonrheumatic aortic (valve) stenosis resolved September 13, 2024 8:50am [facility] Work Phone: Evaluation note 03-13-2024 Note Date & Type Note Facility 03-13-2024 Evaluation note Diagnosis Onset Date Resolution Atrial fibrillation acute 2024 8:44am Dyspnea on exertion acute 2024 8:44am Atherosclerotic heart disease of [place] coronary artery without angina pectoris chronic March 13 8:44am Essential hypertension chronic [facility] 2024 8:44am Hyperlipidemia chronic March 132024 8:44am Nonrheumatic aortic (valve) stenosis resolved March 13, 8:44am [facility] Work Phone: Evaluation note 10-03-2019 Note Date & Type Note Facility 10-03-2019 Evaluation note Diagnosis Onset Date Atherosclerotic heart diseas e of [place] coronary artery without angina pectoris chronic Essential hypertension chron ic Hyperlipidemia chronic S/P aortic valve replacement with bioprosthetic valve October 03, 2019 chronic Secondary pulmonary hypertension [facility] Work Phone: Evaluation note Note Date & Type Note Facility Evaluation note Diagnosis Onset Date Premature ventricular contraction acute Atherosclerotic heart diseas e of [place] coronary artery without angina pectoris chronic Essential hypertension chron ic Hyperlipidemia chronic Nonrheumatic mitral (valve) insufficiency chronic Nonrheumatic tricuspid (valve) insufficiency chronic S/P aortic valve replacement with bioprosthetic valve October 03, 2019 chronic Secondary pulmonary hypertension [facility] Work Phone: Evaluation note Note Date & Type Note Facility Evaluation note No assessment information availa [facility] Work Phone: Reason for referral (narrative) Note Date & Type Note Facility Reason for referral (narrative) No reason for referral information available [facility] Work Phone: Chief Complaint and Reason for Visit Chief Complaint 6 M FU Reason for Visit Premature ventricula r contraction Atherosclerotic heart disease of [place] coronary artery without angina pectoris Essential hypertension Hyperlipidemia Nonrheumatic mitral (valve) insufficiency Nonrheumatic tricuspid (valve) insufficiency S/P aortic valve replacement with bioprosthetic valve Secondary pulmonary hypertension Chief Complaint E ORDER Chief Complaint E ORDER PREV PFM PT 1 y fu Reason for Visit Atherosclerotic hear t disease of [place] coronary artery without angina pectoris Essential hypertension [...] 8 :44am Atherosclerotic heart diseas e of [place] coronary artery without angina pectoris March 13, 2024 8:44am Essential hypertension March 13 8:44am Hyperlipidemia March 13, 2024 8 :44am Nonrheumatic aortic (valve) stenosis Junior hardy 2024 8:44am Chief Complaint Admit Date EORDERS July 18, 2024 10:02 am PSA September 04, 2024 9:40a m Chief Complaint Admit Date EORDERS July 18, 2024 10:02 am PSA September 04, 2024 9:40a m 6 M FU September 13, 2024 8:50 am Chief Complaint Admit Date EORDERS July 18, 2024 10:02 am PSA September 04, 2024 9:40a m 6 M FU September 13, 2024 8:50 am R06.00 - Dyspnea, unspecified September 10:32am Reason for Visit Admit Date Atherosclerotic heart diseas e of [place] coronary artery without angina pectoris September 13, 2024 8:50am Atrial fibrillation September 13, 2024 8:50 am Dyspnea on exertion September 13, 2024 8:50 am Essential hypertension September 13, 2024 8 :50am Hyperlipidemia September 13, 2024 8:50 am Nonrheumatic mitral (valve) insufficienc y September 13, 2024 8:50am Nonrheumatic tricuspid (valve) insuffici ency September 13, 2024 8:50am NSVT (nonsustained ventricular tachycard ia) September 13, 2024 8:50am S/P aortic valve replacement with biopro sthetic valve September 13, 2024 8:50am Secondary pulmonary hypertension September 132024 8:50am Nonrheumatic aortic (valve) stenosis Price 2024 8:50am Family History No Family History Records Found Relationship Condition Age at Onset Recorded Date/T hermila Not Specified Diabetes mellitus Unknown Coronary artery disease Unknown Hypertension Unknown Advance Directives No Advanced Directives Records Found Advance Directive Response Recorded Date/ Time Advance Directives No August 27 8:03am Living Will No December 03 1:27pm Power of Head Chef No December 03 1:27pm Advance Directive Response Recorded Date/ Time Advance Directives No August 27 7:03am Living Will No December 03 12:27pm Power of Head Chef No December 03 12:27pm Advance Directive Response Recorded Date/ Time [...] MD Primary Care Provider Active Eufemia Ackerman , [employer] WORKER-C Attending Provider, Referrin g Provider Active Team [...] 01, 2024 End: May 01, 2024 Kev H Roof KNOCKOUT WORKER, [employer]OCKOUT WORKER-C Attending Provider Active S tart: May 01, 2024 End: May 01, 2024 Kev H Roof KNOCKOUT WORKER, [employer]OUT WORKER-C Referring Provider Active S tart: May 01, 2024 End: May 01, 2024 Team Status: Active Member Role Status Dates Dr. Roberto Carlos Herron MD Primary Care Provider Active Start: May 01, 2024 Kev H Roof KNOCKOUT WORKER, [employer]OCKOUT WORKER-C Referring Provider Active S tart: May 01, 2024 Kev H Roof KNOCKOUT WORKER, KNOCKOUT WORKER-C Other Provider Active Start : May 01, [...] September 13, 2024 End: September 13, 2024 Team Status: Inactive Member Role/Relationship Status Dates Dr. Roberto Carlos Herron MD Primary Care Provider Active Start: October 03, 2024 End: October 03, 2024 JAVIER Rocha Attending Provider Active St art: October 03, 2024 End: October 03, 2024 JAVIER Rocha Referring Provider Active St art: October 03, 2024 End: October 03, 2024 (unrecognized sect ion and content) No Status Records Found INFORMATION SOURCE (unrecogn ized section and content) DATE CREATED AUTHOR 10/28/2024 [facility] FOR RECORDS PERTAINING TO PATIENTS WHO [...] BE BASED ON THE PRIMARY CLINICAL RECORDS. [employer] provides no warranty or guarantee of the accuracy or completeness of information in this document.
[2025-01-11 10:58] LABS: AST(SGOT) 18 U/L (<=37); Alanine Aminotransfer ALT/SGPT 14 U/L (<=46); Albumin, Serum 4.1 g/dL (3.4-4.8); Alkaline Phosphatase 51 U/L (40-129); Anion Gap 9 (5-15); BUN 15 mg/dL (4-19); BUN/Creat Ratio 16.3 RATIO (10-20); Calcium,Total 9.2 mg/dL (7.6-11.0); Carbon Dioxide 23.9 mmol/L (21.0-32.0); Chloride 103 mmol/L (98-108); Cholesterol 130 mg/dL (<=200); Globulin 2.9 g/dL (2.2-4.2); Glucose 98 mg/dL (70-99); Low Density Lipoprotein Calc. 63 mg/dL; Potassium 4.3 mmol/L (3.3-5.1); Triglycerides 79 mg/dL; Very Low Density Lipoprotein 16 mg/dL (5-40); cholesterol:hdl ratio screen 2.52
== END | disposition home or self-care (01) ==
LOC: MTLAB 08:07
PROVIDERS: PCP Family Medicine; Referring Provider Family Medicine; Visit Provider Family Medicine
DX: E78.5 Hyperlipidemia, unspecified (principal)
CPT/HCPCS: 36415; 80053; 80061